=== PATIENT | male | born 1955 | race Caucasian/White ===

== ENCOUNTER → 2019-01-07 13:18 | Outpatient (CLI) | payer OTHER, SELFPAY ==
[2019-01-07 13:51] LABS: Hematocrit 46.8 % (41-53); Mean Corpuscular HGB Conc 34.2 % (30-36); Mean Corpuscular Hemoglobin 34.3 PG (26-34); Mean Corpuscular Volume 100.4 fL (80-100); Platelet Count 161 X10^3/uL (150-400); Red Blood Cell Count 4.66 X10^6/uL (4.5-5.9); Red Cell Distribution Width 13.9 % (11.6-14.8); White Blood Cell Count 9.8 X10^3/uL (4.5-11.0)
[2019-01-07 14:26] LABS: Blood Urea Nitrogen 18 mg/dL (9-20); Calcium 9.5 mg/dL (8.4-10.2); Carbon Dioxide 29 mmol/L (22-32); Chloride 98 mmol/L (98-107); Cholesterol 170 mg/dL (140-199); Estimated Glomerular Filt Rate > 60.0 mL/min (>60); Glucose 106 mg/dL (80-110); HDL Cholesterol 41 mg/dL (40-60); HEMOLYSIS < 15 (0-50); LDL Cholesterol Calculated 105 mg/dL (<100); Potassium 3.9 mmol/L (3.4-5.1); Sodium 138 mmol/L (137-145); Triglycerides 119 mg/dL (35-150)
[2019-01-07 16:21] LABS: Vitamin D 25 Hydroxy (D3) 17.8 ng/mL (30.0-100.0)
== END ==
PROVIDERS: PCP Student in an Organized Health Care Education/Training Program; Visit Provider Student in an Organized Health Care Education/Training Program
DX: E55.9 Vitamin D deficiency, unspecified (principal); G47.30 Sleep apnea, unspecified; K21.9 Gastro-esophageal reflux disease without esophagitis; E66.9 Obesity, unspecified
CPT/HCPCS: 36415; 80048; 80061; 82306; 83036; 85027

== ENCOUNTER 2019-01-07 14:06 | Emergency (ER) | payer OTHER, SELFPAY ==
[2019-01-07 14:15] VITALS: BP 135/84; PULSE 98; RESP 15; TEMP 36.9; O2SAT 93; BMI 43.0
[2019-01-07 14:55] VITALS: BP 111/80; PULSE 96; RESP 18; O2SAT 92
--- NOTE | 2019-01-07 15:20 | DI.US.S_ITS ---
PROCEDURE: US PERIPH VENOUS LOW EXTREM RT INDICATIONS: RED SWOLLEN LEG TECHNIQUE: Real-time imaging, as well as color and pulse Doppler interrogation, were performed of the lower extremity deep veins from the inguinal ligament to the popliteal fossa. COMPARISON: None. FINDINGS: The common femoral, femoral and popliteal veins are normally compressible, and free of intraluminal thrombus. Color and pulse Doppler demonstrate normal phasic intraluminal flow. There is normal augmentation response to distal compression maneuver. Prominent lymph nodes are noted in right inguinal region measures up to 3.3 x 1.4 x 1.7 cm in size. IMPRESSION: No evidence of DVT in visualized right lower extremity veins. Prominent right inguinal lymph nodes as above. Dictated by: Jermaine Wheeler M.D. on 01/07/2019 at 15:48 Approved by: Jermaine Wheeler M.D. on 01/07/2019 at 15:49
--- NOTE | 2019-01-07 15:20 | DI.RAD.S_ITS ---
PROCEDURE: XR CHEST 1V INDICATIONS: chest pain TECHNIQUE: One view of the chest was acquired. COMPARISON: None. FINDINGS: Surgical changes and devices: None. Lungs and pleura: Lungs are clear. No pleural effusions or pneumothorax. Mediastinum: Mediastinal contours appear normal. Heart size is enlarged. Bones and chest wall: No suspicious bony lesions. Overlying soft tissues appear unremarkable. IMPRESSION: No acute cardiopulmonary pathology. Dictated by: Jermaine Wheeler M.D. on 01/07/2019 at 15:43 Approved by: Jermaine Wheeler M.D. on 01/07/2019 at 15:44
--- NOTE | 2019-01-07 15:27 | ED_ITS ---
HPI - Extremity Problem <BRUNA Villeda-BC - Last Filed: 01/07/19 18:52> General Chief complaint: Extremity Problem,Nontraumatic Stated complaint: LOWER RIGHT LEG SWELLING Time Seen by Provider: 01/07/19 14:59 Source: patient Mode of arrival: ambulatory Limitations: no limitations History of Present Illness HPI Narrative: Patient is a 63-year-old male with remote smoking history and cu rrent history of sleep apnea who presents with a chief complaint of a red swollen painful right lower leg. He is concerned about a blood clot. He denies any fevers nausea vomiting or diarrhea. He does endorse a short episode of right-sided chest pain 2 days ago. He also states he was short of breath for approximately 1 hour a few days ago as well. he denies any history of blood clots. He has not taken anything for it. He states he was getting his blood drawn as per his primary care provider, and requested a test for blood clot. He states they sent him down here. Related Data Home Medications Medication Instructions Recorded Confirmed naproxen 250 mg PO BID PRN #0 10/12/06 01/07/19 aspirin 81 mg chewable tablet 81 mg PO DAILY 11/17/18 01/07/19 cetirizine 10 mg capsule 10 mg PO DAILY 11/17/18 01/07/19 vitamin B complex 1 tab PO DAILY 01/07/19 01/07/19 Previous Rx's Medication Instructions Recorded valacyclovir 1 gram tablet 2,000 mg PO BID #4 tab 07/13/18 cephalexin 500 mg PO QID #40 cap 01/07/19 Allergies Allergy/AdvReac Type Severity Reaction Status Date / Time No Known Drug Allergies Allergy Verified 12/30/18 13:05 Review of Systems <EMILIE VilledaBC - Last Filed: 01/07/19 18:52> Review of Systems GENERAL: Denies chills, fatigue, malaise, fever, sweats. HEENT: Denies sinus pain, ear pain, sore throat, difficulty swallowing, dizziness. RESPIRATORY: See HPI CARDIOVASCULAR: See HPI GASTROINTESTINAL: Denies nausea, vomiting, abdominal pain, diarrhea, constipation, melena. : Denies dysuria, frequency, incontinence, hematuria, urinary retention. MUSCULOSKELETAL: denies weakness, joint pain, or bony pain SKIN: See HPI NEUROLOGIC: Denies weakness, headache, numbness, change in speech, confusion, seizures, incoordination. PSYCHIATRIC: No concerning psychosocial issues. 12 point review of systems is negative except for those stated above PFSH <Tracy MontielLILAP- - Last Filed: 01/07/19 18:52> Medical History (Updated 01/08/19 @ 07:45 by Tigre Shankar MD) BPH (benign prostatic hyperplasia) (Chronic) GERD (gastroesophageal reflux disease) (Chronic) Herpes (Resolved) Family History Mother Heart disease Cancer Stroke Father Stroke Social History (Updated 03/25/18 @ 14:41 by Nazia Engel LPN) marital status: unmarried,single household members: none lives independently: Yes caregiver/support person: No Smoking Status: Former smoker alcohol intake: current substance use type: does not use Social History (Updated 03/25/18 @ 14:41 by Nazia Engel LPN) marital status: unmarried,single household members: none lives independently: Yes caregiver/support person: No Smoking Status: Former smoker alcohol intake: current substance use type: does not use Exam <Tracy MontielLILAFORMERLY [facility] - Last Filed: 01/07/19 18:52> Narrative Exam Narrative: GENERAL: This is a well-nourished, well-developed patient, i no acute distress HEAD: Atraumatic. Normocephalic. No temporal or scalp tenderness. EYES: Pupils equal round and reactive. Extraocular motions intact. No scleral icterus. No injection or drainage. ENT: Nose without bleeding, purulent drainage or septal hematoma. Throat without erythema, tonsillar hypertrophy or exudate. Uvula midline. Airway patent. NECK: Trachea midline. No JVD or lymphadenopathy. Supple, nontender, no meningeal signs. CARDIOVASCULAR: Regular rate and rhythm without murmurs, gallops, or rubs. RESPIRATORY: Clear to auscultation. Breath sounds equal bilaterally. No wheezes, rales, or rhonchi. No cough. No increased respiratory effort. No accessory muscle use. GASTROINTESTINAL: Abdomen soft, non-tender, nondistended. No hepato-sp lenomegaly, or palpable masses. No guarding. active bowel sounds all 4 quadrants. No pulsatile mass. EXTREMITIES: +2 edema noted bilateral lower legs. Positive pedal pulses bilaterally. BACK: Nontender without deformity or crepitance. No flank tenderness. NEURO: AOx3. SKIN: Diffuse erythema noted 8 cm up the right lower leg. Initial Vital Signs Initial Vital Signs: Vital Signs Temperature 98.4 F 01/07/19 14:15 Pulse Rate 98 H 01/07/19 14:15 Respiratory Rate 15 01/07/19 14:15 Blood Pressure 135/84 01/07/19 14:15 Pulse Oximetry 93 01/07/19 14:15 <Tracy Sol DO - Last Filed: 01/11/19 07:14> Initial Vital Signs Initial Vital Signs: Vital Signs Temperature 98.4 F 01/07/19 14:15 Pulse Rate 98 H 01/07/19 14:15 Respiratory Rate 15 01/07/19 14:15 Blood Pressure 135/84 01/07/19 14:15 Pulse Oximetry 93 01/07/19 14:15 Course <BRUNA Villeda-BC - Last Filed: 01/07/19 18:52> Orders Ordered: ED Orders 01/07/19 13:22 B Type Natriuretic Peptide Stat 01/07/19 13:31 Prothrombin Time INR Stat 01/07/19 14:29 EKG-12 Lead Routine 01/07/19 15:20 US periph venous low extrem rt Stat XR chest 1V Stat Troponin & CK Cardiac Panel Stat Vital Signs - 8 hr 01/07/19 14:15 01/07/19 14:55 01/07/19 17:58 Temperature 98.4 F Pulse Rate 98 H 96 H 98 H Respiratory Rate 15 18 21 Blood Pressure 135/84 Blood Pressure [Right Arm] 111/80 144/87 H Pulse Oximetry 93 92 92 <Tracy Sol DO - Last Filed: 01/11/19 07:14> Orders Ordered: ED Orders 01/07/19 13:22 B Type Natriuretic Peptide Stat 01/07/19 13:31 Prothrombin Time INR Stat 01/07/19 14:29 EKG-12 Lead Routine 01/07/19 15:20 US periph venous low extrem rt Stat XR chest 1V Stat Troponin & CK Cardiac Panel Stat Vital Signs - 8 hr 01/07/19 14:15 01/07/19 14:55 01/07/19 17:58 Temperature 98.4 F Pulse Rate 98 H 96 H 98 H Respiratory Rate 15 18 21 Blood Pressure 135/84 Blood Pressure [Right Arm] 111/80 144/87 H Pulse Oximetry 93 92 92 MDM - Extremity (Nontraumatic) <LASHA Villeda - Last Filed: 01/07/19 18:52> Lab Data Lab Results 01/07/19 01/07/19 01/07/19 Range/Units 13:22 13:31 15:20 PT 13.0 H (10.1-12.7) SECONDS INR 1.1 (0.9-1.3) Total Creatine Kinase 109 (55-170) U/L CK-MB (CK-2) 0.68 (<2.37) ng/mL CK-MB (CK-2) Rel Index 0.6 L (1.5-5.0) % Troponin I < 0.012 (0.01-0.034) ng/mL B-Natriuretic Peptide < 100 (<100) Imaging Data Chest x-ray: Radiologist's impression: [address] [address] XRay Report Signed Patient: Patrick Kirkland#: [id number] : 1955cct:[id number] Age/Sex: 63 / MDate of Service: 01/07/19 Loc: ED Accession Number: [id number] Procedure: XR chest 1V Ordering Provider: Tracy Montiel PROCEDURE: XR CHEST 1V INDICATIONS: chest pain TECHNIQUE: One view of the chest was acquired. COMPARISON: None. FINDINGS: Surgical changes and devices: None. Lungs and pleura: Lungs are clear. No pleural effusions or pneumothorax. Mediastinum: Mediastinal contours appear normal. Heart size is enlarged. Bones and chest wall: No suspicious bony lesions. Overlying soft tissues appear unremarkable. IMPRESSION: No acute cardiopulmonary pathology. Dictated by: Jermaine Wheeler M.D. on 01/07/2019 at 15:43 Approved by: Jermaine Wheeler M.D. on 01/07/2019 at 15:44 Venous US: Radiologist's impression: Patrick Kirkland Liam 63 M [address] [address] Ultrasound Report Signed Patient: Patrick Kirkland Liam#: [id number] : 7Acct:[id number] Age/Sex: 63 / MDate of Service: 01/07/19 Loc: ED Accession Number: [id number] Procedure: US periph venous low extrem rt Ordering Provider: Tracy Montiel-BC PROCEDURE: US PERIPH VENOUS LOW EXTREM RT INDICATIONS: RED SWOLLEN LEG TECHNIQUE: Real-time imaging, as well as color and pulse Doppler interrogation, were performed of the lower extremity deep veins from the inguinal ligament to the popliteal fossa. COMPARISON: None. FINDINGS: The common femoral, femoral and popliteal veins are normally compressible, and free of intraluminal thrombus. Color and pulse Doppler demonstrate normal phasic intraluminal flow. There is normal augmentation response to distal compression maneuver. Prominent lymph nodes are noted in right inguinal region measures up to 3.3 x 1.4 x 1.7 cm in size. IMPRESSION: No evidence of DVT in visualized right lower extremity veins. Prominent right inguinal lymph nodes as above. Dictated by: Jermaine Wheeler M.D. on 01/07/2019 at 15:48 Approved by: Jermaine Wheeler M.D. on 01/07/2019 at 15:49 ECG Data Attestation EKG: I personally reviewed and interpreted this ECG as follows: Interpretation: Sinus rhythm. Ventricular rate 89. No ectopy noted. no ST elevation or depression. Right bundle-branch block noted. Viewed by Dr. Sol [id number] [facility] Narrative Medical decision making narrative: Patient is a 63-year-old male who presents with chief complaint of right lower leg pain as well as a remote complaint of right-sided chest pain. however he has no chest pain or shortness of breath today and has not had it for several days. His ultrasound for DVT was negative. He had a normal chest x-ray. He had a negative troponin. This given his warm erythematous lower leg, I will treat him for cellulitis with cephalexin. I discussed at length the possibility of further evaluation of chest pain, he declines this at this point time. I encouraged follow-up with primary care provider soon as possible. Discussed return precautions including vomiting, diarrhea, signs of systemic illness and concern of heart attack or stroke. Patient had questions or concerns upon discharge. he remained hemodynamically stable and afebrile throughout his stay in the emergency department. <Tracy Sol DO - Last Filed: 01/11/19 07:14> Lab Data Lab Results 01/07/19 01/07/19 01/07/19 Range/Units 13:22 13:31 15:20 PT 13.0 H (10.1-12.7) SECONDS INR 1.1 (0.9-1.3) Total Creatine Kinase 109 (55-170) U/L CK-MB (CK-2) 0.68 (<2.37) ng/mL CK-MB (CK-2) Rel Index 0.6 L (1.5-5.0) % Troponin I < 0.012 (0.01-0.034) ng/mL B-Natriuretic Peptide < 100 (<100) Discharge Plan Departure Patient Disposition: Home Clinical Impression: Cellulitis Qualifiers: Site of cellulitis: extremity Site of cellulitis of extremity: lower extremity Laterality: right Qualified Code(s): L03.115 - Cellulitis of right lower limb Discharge Date/Time: 01/07/19 18:04 Interventions: ED Discharge Assessment Last Done: 01/07/19 18:01 Instructions: DI for Cellulitis -- Adult Activity Restrictions/Additional Instructions: I am starting you on antibiotics. This is for skin infection cold cellulitis. Please monitor for worsening of the infection, fever vomiting and/or diarrhea. Please rest her leg elevated. Please come back to the emergency department for any acute concerns such as chest pain, shortness of breath. Please follow up with primary care provider as soon as possible. Prescriptions: New cephalexin 500 mg capsule 500 mg PO QID Qty: 40 RF: 0 No Action naproxen 250 mg Tablet 250 mg PO BID PRN (Reason: pain) Qty: 0 RF: 0 valacyclovir 1 gram tablet 2,000 mg PO BID Qty: 4 RF: 3 Allergy Relief (cetirizine) 10 mg capsule 10 mg PO DAILY RF: 0 aspirin [Aspirin Childrens] 81 mg tablet,chewable 81 mg PO DAILY RF: 0 vitamin B complex Tablet 1 tab PO DAILY RF: 0 Referrals: Tigre Shankar MD [Primary Care Provider] - <Tracy Sol DO - Last Filed: 01/11/19 07:14> Cosign ED Attending Cosignature Attestation: I was immediately available in the department for consultation. Imaging and lab work was reviewed. This documentation has been reviewed and I agree with assessment and plan. Supervised by Tracy Sol, DO
[2019-01-07 15:33] LABS: INR 1.1 (0.9-1.3)
[2019-01-07 15:37] LABS: Creatine Kinase 109 U/L (55-170)
[2019-01-07 15:49] LABS: Troponin I < 0.012 ng/mL (0.01-0.034)
[2019-01-07 15:52] LABS: CKMB % Relative Index 0.6 % (1.5-5.0); Creatine Kinase MB 0.68 ng/mL (<2.37)
[2019-01-07 16:35] LABS: B Type Natriuretic Peptide < 100 (<100)
[2019-01-07 17:58] VITALS: BP 144/87; PULSE 98; RESP 21; O2SAT 92
== END 2019-01-07 18:04 | disposition home or self-care (01) ==
PROVIDERS: Emergency Provider Nurse Practitioner Family; PCP Student in an Organized Health Care Education/Training Program
DX: L03.115 Cellulitis of right lower limb (principal); M79.661 Pain in right lower leg; R07.9 Chest pain, unspecified; R06.02 Shortness of breath
CPT/HCPCS: 36415; 71045; 82550; 82553; 83880; 84484; 85610; 93005; 93010; 93971; 99282; 99285

== ENCOUNTER → 2019-11-19 15:16 | Outpatient (CLI) | payer OTHER, SELFPAY ==
[2019-11-19 16:34] LABS: Add Manual Diff / Slide Review NO; Basophils Absolute Auto 100 /uL (0-100); Basophils Percent Auto 1.2 % (0-2); Eosinophils Absolute Auto 200 /uL (0-450); Hematocrit 47.3 % (41-53); Hemoglobin 15.8 g/dL (13.5-17.5); Lymphocytes Absolute Auto 1200 /uL (1100-4500); Lymphocytes Percent Auto 23.7 % (25-40); Mean Corpuscular HGB Conc 33.4 % (30-36); Mean Corpuscular Hemoglobin 33.4 PG (26-34); Monocytes Absolute Auto 700 /uL (0-900); Monocytes Percent Auto 13.7 % (3-14); Neutrophils Absolute Auto 2900 /uL (1500-7000); Neutrophils Percent Auto 57.4 % (50-75); Platelet Count 129 X10^3/uL (150-400); Red Blood Cell Count 4.73 X10^6/uL (4.5-5.9); White Blood Cell Count 5.1 X10^3/uL (4.5-11.0)
[2019-11-19 16:36] LABS: HEMOLYSIS 20 (0-50)
[2019-11-19 16:43] LABS: Alanine Aminotransferase 18 IU/L (<50); Albumin 3.8 g/dL (3.5-5.0); Albumin Globulin Ratio 1.3 (1.0-2.8); Alkaline Phosphatase 93 U/L (38-126); Aspartate Aminotransferase 26 IU/L (17-59); Bilirubin Total 1.1 mg/dL (0.2-1.3); Blood Urea Nitrogen 13 mg/dL (9-20); Calcium 8.9 mg/dL (8.4-10.2); Carbon Dioxide 33 mmol/L (22-32); Chloride 103 mmol/L (98-107); Estimated Glomerular Filt Rate > 60.0 mL/min (>60); Globulin 2.9 g/dL (1.7-4.1); Glucose 113 mg/dL (80-110); Potassium 3.7 mmol/L (3.4-5.1); Sodium 143 mmol/L (137-145); Total Protein 6.7 g/dL (6.3-8.2)
[2019-11-19 16:51] LABS: NT-proBNP (BNP-Adult 18+) 3370 pg/mL (<125)
[2019-11-19 17:17] LABS: Prostate Specific Antigen Scrn 1.25 ng/mL (0.1-4.0)
[2019-11-19 17:20] LABS: Vitamin D 25 Hydroxy (D3) 29.9 ng/mL (30.0-100.0)
[2019-11-19 17:33] LABS: TSH w/ Reflex to FT4 2.22 uIU/mL (0.47-4.68)
[2019-11-19 20:26] LABS: Hemoglobin A1C% w Est Avg Glu 6.7 % (4.0-6.0)
== END ==
PROVIDERS: PCP Student in an Organized Health Care Education/Training Program; Referring Provider Student in an Organized Health Care Education/Training Program; Visit Provider Student in an Organized Health Care Education/Training Program
DX: Z12.5 Encounter for screening for malignant neoplasm of prostate (principal); R60.1 Generalized edema; E66.01 Morbid (severe) obesity due to excess calories; E55.9 Vitamin D deficiency, unspecified
CPT/HCPCS: 36415; 80053; 82306; 83036; 83880; 84443; 85025; G0103

== ENCOUNTER 2019-12-08 14:41 | Inpatient (IN) | payer OTHER, SELFPAY ==
[2019-12-08] VITALS (7 sets, daily range): BP systolic 126–136; BP diastolic 79–101; PULSE 84–114; RESP 16–20; TEMP 36.2–37; O2SAT 90–93; BMI 47.0
--- NOTE | 2019-12-08 | DI.RAD.S_ITS ---
PROCEDURE: XR CHEST 1V INDICATIONS: POSSIBLE CHF TECHNIQUE: One view of the chest was acquired. COMPARISON: [facility], CR, XR CHEST 1V, 01/07/2019, 15:24. FINDINGS: Surgical changes and devices: None. Lungs and pleura: Mild pulmonary vascular congestion and mild pulmonary edema is seen with increased interstitial lung markings. No definite focal infiltrate. No pleural effusions or pneumothorax. Mediastinum: Mediastinal contours appear normal. Heart size is enlarged. Bones and chest wall: No suspicious bony lesions. Overlying soft tissues appear unremarkable. IMPRESSION: Suggestion of mild to moderate CHF. No definite focal infiltrate. No gross pneumothorax. Dictated by: Jermaine Wheeler M.D. on 12/08/2019 at 18:50 Approved by: Jermaine Wheeler M.D. on 12/08/2019 at 18:51
--- NOTE | 2019-12-08 16:06 | DI.ECHO.S_ITS ---
[place] [facility]---------+ [facility] +---------+ : : [address] : : : : [id number] : : : : Phone: [phone]+ Echocardiogram Report + + :Name: STEVEN SHAY Study Date: 12/09/2019 Height: 70 in : :[facility] Weight: 336 lb : : Gender: Male BSA: 2.6 m2 : :: 1955 Age: 64 yrs BP: 131/91 mmHg: :Reason For Study: R/O CHF : :Ordering Physician: Tobi : :Hospitalist Performed By: Janee Martins : :Referring: PERRY OROZCO : + + Interpretation Summary The left ventricle is mildly dilated. Left ventricular ejection fraction is estimated to be 20 +/- 5%. There is severe global hypokinesis of the left ventricle. The right ventricle is severely dilated. Right ventricular systolic function is moderate to severely reduced. -Overall this echocardiogram shows significant biventricular dysfunction and evidence of volume overload. -Patient was in atrial fibrillation with heart rate of mostly in 100s during this study. Procedure: The study quality was technically adequate. A two-dimensional transthoracic echocardiogram with color flow and Doppler was performed. A contrast injection of Definity was performed to improve assessment of LV function. Definity contrast used after patient education and consent. Contrast was injected into an intravenous site in the right arm. There is no prior echocardiogram noted for this patient. The patient was in atrial fibrillation with heart rates between 92-105 bpm during the exam. Left Ventricle: The left ventricle is mildly dilated. There is mild asymmetric left ventricular hypertrophy. There is no thrombus. Left ventricular ejection fraction is estimated to be 20 +/- 5%. Left ventricular systolic function is moderate to severely reduced. The interventricular septum is flattened, consistent with a right ventricular volume overload condition. There is severe global hypokinesis of the left ventricle. Septal motion is consistent with conduction abnormality. Diastolic function could not be accurately assessed due to atrial fibrillation. Right Ventricle: The right ventricle is severely dilated. Right ventricular systolic function is moderate to severely reduced. Atria: The left atrium is mildly dilated. The right atrium is moderately dilated. Mitral Valve: The mitral valve leaflets appear mildly thickened, but open well. There is trace mitral regurgitation. Aortic Valve: The aortic valve is trileaflet. The aortic valve opens well. There is no aortic valve stenosis. No aortic regurgitation is present. Tricuspid Valve: The tricuspid valve is normal in structure but is abnormal in function. There is moderate tricuspid regurgitation. Pulmonic Valve: The pulmonic valve is not well seen, but is grossly normal. There is mild pulmonic regurgitation. Great Vessels: The aortic root is borderline dilated. The ascending aorta is mild-moderately enlarged. The inferior vena cava was not visualized. Pericardium/ Pleura There is no pericardial effusion. There is no pleural effusion. MMode/2D Measurements & Calculations LVIDd: 5.8 cm LVOT diam: 2.1 cm LVIDs: 5.4 cm Ao root diam: 3.6 cm FS: 8.0 % asc Aorta Diam: 3.9 cm EPSS: 1.5 cm IVSd: 0.92 cm LVPWd: 1.2 cm LV faith. diameter/BSA (cm/m^2): 2.2 LV sys. diameter/BSA (cm/m^2): 2.1 LA A2 area: 32.1 cm2 RA long axis: 6.3 cm LA A4 area: 24.5 cm2 RA area: 28.5 cm2 LA length (vol): 6.5 cm RA vol: 110.5 ml LA vol: 102.6 ml RA : 42.5 ml/m2 LA vol index: 39.4 ml/m2 RVD1 (basal): 6.5 cm TAPSE: 1.3 cm Doppler Measurements & Calculations Ao V2 max: 110.1 cm/sec LVOT Max Ananth: 87.0 cm/sec Ao V2 mean: 78.4 cm/sec LV V1 max P.0 mmHg Ao max P.8 mmHg LV V1 VTI: 14.8 cm Ao mean P.7 mmHg ADELINA(I,D): 2.9 cm2 Ao V2 VTI: 17.6 cm ADELINA(V,D): 2.7 cm2 sev ratio: 0.84 ADELINA indexed to BSA (cm^2/m^2): 1.1 MV E max ananth: 93.4 cm/sec TR max ananth: 208.6 cm/sec MV A max ananth: 1.5 cm/sec TR max P.4 mmHg MV E/A: 61.3 PA V2 max: 37.5 cm/sec Med Peak E' Ananth: 5.9 cm/sec PA V2 mean: 28.6 cm/sec E/E' med: 15.8 PA mean P.35 mmHg Lat Peak E' Ananth: 7.1 cm/sec PA Accel Time: 0.12 sec E/E' lat: 13.2 E/e' average: 14.5 MV dec time: 0.13 sec MV P1/2t: 44.0 msec MV P1/2t max ananth: 102.3 cm/sec SV(LVOT): 50.6 ml MVA(2t): 5.0 cm2 Electronically signed by: To Escobar M.D. on Reading Physician:12/09/2019 01:33 PM
--- NOTE | 2019-12-08 16:10 | PM.HP.1 ---
History of Present Illness History of Present Illness Date Patient Seen: 12/08/19 Chief complaint: Fluid overload and CHF Narrative: The patient is a 64-year-old male with a history of morbid obesity, cellulitis, obstructive sleep apnea, GERD who presents for progressive anasarca. Patient states his symptoms began in the fall. At that time he it had the flu. He reports following resolution of the fluid he became and noticeably more short of breath. Patient a sleep study and was confirmed to have obstructive sleep apnea. Unfortunately his CPAP machine was ordered but has not been delivered. Since that time he has had gradual weight gain. He continues to gain weight despite oral diuretics. He does know a loud snoring and waking at night. But no orthopnea. He has weeping of the lower extremities CC abdominal girth. Increasing weight. His primary care provider Dr. Santacruz was attempting to arrange an outpatient echo and was unsuccessful with doing this. The patient continues to have progressive swelling and edema and was admitted to the hospital for inpatient treatment after failed outpatient treatment with oral diuretics. Patient denies any fever or chills. He denies any orthopnea or PND. He has no nausea vomiting or diarrhea. He denies any headache blurred vision double vision. He denies chest pain. He does have occasional palpitations. Patient History Medical History (Updated 12/08/19 @ 16:12 by Tana Catherine MD) Anasarca (Acute) BPH (benign prostatic hyperplasia) (Chronic) Cellulitis (Inactive) Essential hypertension (Acute) GERD (gastroesophageal reflux disease) (Chronic) Herpes (Resolved) Obesity with serious comorbidity (Chronic 12/09/17) Umbilical hernia without mention of obstruction or gangrene (Chronic) Vitamin D deficiency (Acute) Family & Social History Social History: household members none lives independently Yes caregiver/support person No Tobacco & Substance use: Smoking Status Former smoker alcohol intake current alcohol intake frequency 0-2 drinks per day Substance Use Type marijuana Meds Home Medications and Allergies Home Medications Medication Instructions Recorded Confirmed Type naproxen 250 mg PO BID PRN #0 10/12/06 12/08/19 History vitamin B complex 1 tab PO DAILY 01/07/19 12/08/19 History bumetanide 2 mg tablet 2 mg PO BID #60 tab 11/19/19 12/08/19 Rx spironolactone 100 mg tablet 100 mg PO DAILY #30 tab 11/19/19 12/08/19 Rx acetaminophen [Tylenol] 325 mg PO BID 12/08/19 12/08/19 History cetirizine [Zyrtec] 10 mg PO DAILY 12/08/19 12/08/19 History valacyclovir 2,000 mg PO BID PRN 12/08/19 12/08/19 History vitamin B complex [B 1 tab PO DAILY 12/08/19 12/08/19 History Complex-Vitamin B12] Allergies Allergy/AdvReac Type Severity Reaction Status Date / Time No Known Drug Allergies Allergy Verified 11/24/19 15:05 Review of Systems Review of Systems ROS: Yes All systems reviewed with the patient and are negative except as otherwise documented Exam Vital Signs (past 8 hours): - 12/08/19 15:00 Temperature 97.7 F Pulse Rate 101 H Respiratory Rate 20 Blood Pressure 136/101 H Pulse Oximetry 90 L Oxygen Flow Rate 0 Narrative Exam Narrative: Pleasant male in no acute distress HEENT: Normocephalic atraumatic, extraocular muscles are intact, oropharynx is clear, neck is supple without adenopathy Lungs: Clear to auscultation Cardiac exam: Regular rate and rhythm normal S1-S2 distant heart tones Abdomen: Obese soft nontender, no appreciable hepatosplenomegaly, umbilical hernia noted Abdominal skin, erythema dry, scaly Extremities: 3 to 4+ pitting edema bilaterally, no oozing at this time, early areas of skin breakdown noted Neurological exam: Cranial nerves 2-12 are intact, strength is symmetric and equal, sensation is grossly intact, gait is not assessed Assessment & Plan Assessment & Plan narrative: Impression 1. 64-year-old male admitted to the hospital for anasarca -patient with progressive weight gain unresponsive to oral diuretics -possible congestive heart failure, will need echocardiogram to define further -no known history of liver disease -will discontinue spironolactone and Bumex -will start IV Lasix, check lab studies, follow-up with labs in the morning 2. Obstructive sleep apnea -patient will be placed on CPAP tonight -will work with social work to identify where his machine is for home use as his untreated sleep apnea may be worsening his anasarca 3 morbid obesity -dietary consult pending 4. Hypertension -will monitor blood pressure here in the hospital, await lab studies will check lipid profile and glycohemoglobin -IV Lasix may improve blood pressure is 1 5. Patient is a full code will note that in his record accordingly
[2019-12-08 18:11] LABS: Hemoglobin A1C% w Est Avg Glu 6.7 % (4.0-6.0)
[2019-12-08 18:26] LABS: Alanine Aminotransferase 16 IU/L (<50); Albumin 3.9 g/dL (3.5-5.0); Albumin Globulin Ratio 1.2 (1.0-2.8); Alkaline Phosphatase 124 U/L (38-126); Aspartate Aminotransferase 24 IU/L (17-59); BUN Creatinine Ratio 23.7 (6-22); Bilirubin Total 1.3 mg/dL (0.2-1.3); Blood Urea Nitrogen 23 mg/dL (9-20); Calcium 9.6 mg/dL (8.4-10.2); Carbon Dioxide 33 mmol/L (22-32); Chloride 101 mmol/L (98-107); Cholesterol 132 mg/dL (140-199); Estimated Glomerular Filt Rate > 60.0 mL/min (>60); Globulin 3.3 g/dL (1.7-4.1); Glucose 100 mg/dL (80-110); HDL Cholesterol 25 mg/dL (40-60); HEMOLYSIS 25 (0-50); LDL Cholesterol Calculated 62 mg/dL (<100); Sodium 141 mmol/L (137-145); Total Protein 7.2 g/dL (6.3-8.2); Triglycerides 223 mg/dL (35-150)
[2019-12-08 18:33] LABS: NT-proBNP (BNP-Adult 18+) 3050 pg/mL (<125)
[2019-12-08] MEDS: FUROSEMIDE 40 MG/4 ML VIAL IV ×2 (19:03→23:59)
[2019-12-08] MEDS: METOPROLOL IR 25 MG TABLET PO (20:29)
[2019-12-08] MEDS: NYSTATIN CREAM 30 GM 1 APPLIC TOP (20:29)
--- NOTE | 2019-12-08 20:52 | PC.NURSE ---
HR pt's HR increases to 140s when up to BR. pt advised of the same and denies feeling HR elevation. pt instructed to use urinal at bedside for further voids. Medicated with metoprolol, reference EMAR.
[2019-12-09] VITALS (11 sets, daily range): BP systolic 116–133; BP diastolic 81–94; PULSE 90–118; RESP 20–24; TEMP 36.1–36.8; O2SAT 91–95
--- NOTE | 2019-12-09 02:51 | PC.NURSE ---
Pt 13 Vtach run. Pt asymptomatic and denies complaints. BP 130/81. HR now back to Afib running in low 100s. Enzo NEUMANN notified. Orders received
[2019-12-09 03:33] LABS: BUN Creatinine Ratio 21.2 (6-22); Blood Urea Nitrogen 21 mg/dL (9-20); Calcium 9.2 mg/dL (8.4-10.2); Carbon Dioxide 34 mmol/L (22-32); Chloride 99 mmol/L (98-107); Estimated Glomerular Filt Rate > 60.0 mL/min (>60); Glucose 102 mg/dL (80-110); HEMOLYSIS < 15 (0-50); Potassium 3.5 mmol/L (3.4-5.1); Sodium 140 mmol/L (137-145)
[2019-12-09 03:34] LABS: Magnesium 1.6 mg/dL (1.6-2.3)
[2019-12-09] MEDS: MAGNESIUM SULFATE 2 GM/50 ML PIGGYBACK IV (04:40)
[2019-12-09] MEDS: POTASSIUM CHLORIDE 60 MEQ in SODIUM CHLORIDE 0.9% 500 ML 88.333 ML IV (04:46)
--- NOTE | 2019-12-09 06:28 | PC.NURSE ---
Pt on 3L O2 and CPAP during the night for recent diagnose of sleep apnea. Pt desatting to 78% whenever falling asleep. O2 sats would come back up to 92% only upon awakening patient. RT at bedside and O2 turned up to 12L O2. Pt still continued to desat frequently whenever falling asleep. Pt taken off CPAP and placed on high flow NC at 10L. O2 sats now running stable at 95% without any O2 sat drop. Pt sats continuing to stable at 95%. Decreased O2 level to 8L and O2 sats running at 95%. Pt has no complaints. Enzo NEUMANN aware.
[2019-12-09] MEDS: ENOXAPARIN 40 MG/0.4 ML SYRINGE SUBCUT (09:30)
[2019-12-09] MEDS: NYSTATIN CREAM 30 GM 1 APPLIC TOP ×2 (09:30→22:00)
[2019-12-09] MEDS: METOPROLOL IR 25 MG TABLET PO ×2 (09:30→22:00)
--- NOTE | 2019-12-09 10:46 | CM.DANOTE ---
DCP Assessment: EMR reviewed: Patient is a 64 yr old male who was admitted for CHF exacerbation, Fluid overload and anasarca. patients PCP is Dr. Shankar. CM/RN met with patient at the bedside and explained role. Patient was alert and oriented x3 at time of CM visit. Patient currently lives alone in a sail boat docked at [facility]. Patient is independent with all ADL's at baseline and drives. Cm/RN met with Dr. Valdez during AM rounds and discussed D/C plan for patient. Dr. Valdez stated patient was going to need a few more days to help with fluid removal and increase patients oxygenation. Patient stated understanding. I: [employer] [employer] P: D/C home when medically stable. Patient does have friend close by who can help if patient needs it a D/C as well as can stay at a friends home if he needs more time to recover and get back to [place] prior to going back to his sail boat. Patient is open to if he needs it but absolutely does not want to go to SNF. CM department will continue to monitor patient for any new D/C planning needs that might arise. Geraldine Ross RN Discharge Planning/Care Management CM Discharge Assessment Start: 12/09/19 10:44 Freq: Status: Active Protocol: Document 12/09/19 10:45 HS (Rec: 12/09/19 10:46 HS [id number]) Discharge Planning Assessment Assigned Oil Field Equipment Mechanic Supervisor Geraldine Ross RN DPOA/Assigned Designee Name Víctor Kirkland Contact Information [phone] Advance Directives? No History Provided By Patient,Medical Record Has Patient been admitted in last 30 No days? Prior Living Arrangements Mobile home Comment patient lives on a sale boat Household Members none Type of transporation used prior to Drives own vehicle admit Independent with ADL's Yes Is patient alert and oriented? Yes Caregiver for Another No DME Already Rented / Owned Cane Barriers to Discharge No Discharge Plan Home Referrals Initiated None needed Whiteboard Updated in Patient Room with Yes name and ext. # of Oil Field Equipment Mechanic Supervisor Review Status In Process Next Review Type Continued Stay Review
--- NOTE | 2019-12-09 12:35 | PM.PN.1 ---
Subjective Subjective Date Patient Seen: 12/09/19 Time Patient Seen: 12:36 Interval history: The patient is a 64-year-old male with a history of morbid obesity, cellulitis, obstructive sleep apnea, GERD who was admitted for anasarca and is seen for follow-up today. Echocardiogram is still pending. Yesterday the patient was noted to be in AFib which he remains in today, but at a controlled rate as of this morning. He is still requiring a significant amount of oxygen to maintain an O2 sat 90%, currently at 8 L. This is slightly improved from before. He does state that he feels slightly better, and did urinate quite a bit yesterday. He was net negative about 2 L yesterday. His A1c did come back at 6.7%, but his sugars have remained normal here. Exam Vital Signs (past 8 hours): - 12/09/19 05:34 12/09/19 06:39 12/09/19 08:00 Temperature 96.9 F L 97.3 F L Pulse Rate 100 H 98 H Respiratory Rate 21 24 Blood Pressure 131/91 H 116/83 Pulse Oximetry 93 94 93 12/09/19 09:06 Temperature Pulse Rate 118 H Respiratory Rate Blood Pressure Pulse Oximetry 91 Oxygen Delivery Method High Flow Nasal Cannula Oxygen Flow Rate 8 Narrative Exam Narrative: GENERAL APPEARANCE: Obese, Well developed, well nourished, in no acute distress. SKIN: Inspection of the skin reveals no rashes, ulcerations or petechiae. Chronic venous stasis as noted below HEENT: Normocephalic atraumatic, extraocular muscles are intact, oropharynx is clear and mucous membranes are moist, neck is supple without adenopathy NECK: Supple and symmetric. There was no thyroid enlargement, and no tenderness, or masses were felt. CHEST: Normal AP diameter and normal contour without any kyphoscoliosis. LUNGS: Auscultation of the lungs revealed no wheezes, rhonchi, or rales. CARDIOVASCULAR: There was a regular rate and rhythm without any murmurs, gallops, rubs. Peripheral pulses were 2+ and symmetric. ABDOMEN: Soft and nontender with normal bowel sounds. No ascites was noted. There is an umbilical hernia which is nontender. MUSCULOSKELETAL: There was no tenderness or effusions noted. Muscle strength and tone were normal. EXTREMITIES: No cyanosis, clubbing. There is 3+ pitting edema bilaterally, as well as evidence chronic venous stasis. NEUROLOGIC: Alert and oriented x 3. Normal affect. Gait was normal. Strength is +5/5 in the Upper Extremities and Lower Extremities Bilaterally. Sensation to touch was normal. Objective Labs Result Diagrams: 12/09/19 02:52 Labs: Laboratory Results - last 24 hr 12/08/19 12/08/19 12/09/19 17:23 17:23 02:52 Sodium 141 140 Potassium 4.0 3.5 Chloride 101 99 Carbon Dioxide 33 H 34 H BUN 23 H 21 H Creatinine 0.97 0.99 Estimated GFR > 60.0 > 60.0 BUN/Creatinine Ratio 23.7 H 21.2 Glucose 100 102 Hemoglobin A1c 6.7 H Calcium 9.6 9.2 Magnesium Total Bilirubin 1.3 AST 24 ALT 16 Alkaline Phosphatase 124 NT-Pro-B Natriuret Pep 3050 H Total Protein 7.2 Albumin 3.9 Globulin 3.3 Albumin/Globulin Ratio 1.2 Triglycerides 223 H Cholesterol 132 L LDL Cholesterol, Calc 62 HDL Cholesterol 25 L 12/09/19 02:52 Sodium Potassium Chloride Carbon Dioxide BUN Creatinine Estimated GFR BUN/Creatinine Ratio Glucose Hemoglobin A1c Calcium Magnesium 1.6 Total Bilirubin AST ALT Alkaline Phosphatase NT-Pro-B Natriuret Pep Total Protein Albumin Globulin Albumin/Globulin Ratio Triglycerides Cholesterol LDL Cholesterol, Calc HDL Cholesterol Assessment & Plan Assessment & Plan narrative: 1. 64-year-old male admitted to the hospital for anasarca -patient with progressive weight gain unresponsive to oral diuretics -possible congestive heart failure, currently pending echocardiogram -no known history of liver disease, no known history of kidney disease. Will check a urine protein creatinine ratio to evaluate for nephrotic syndrome. -patient with adequate response to IV Lasix, will continue at current dosing with goal net 2 L negative daily. 2. Obstructive sleep apnea, chronic -patient will be placed on CPAP tonight -will work with social work to identify where his machine is for home use as his untreated sleep apnea may be worsening his anasarca 3 morbid obesity, chronic -appreciate dietary recommendations 4. Hypertension, chronic -started on metoprolol as noted below, and patient is currently being diuresed. His blood pressures are improved today. 5. Diabetes, present on admission, new diagnosis -patient with mildly elevated A1c at 6.7%. Will start metformin upon discharge. Blood glucose values have been unremarkable to this time. -carbohydrate consistent diet 6. Paroxysmal atrial fibrillation, unknown chronicity -patient was started on metoprolol and has improved rate control -will need to discuss anticoagulation, pending further stratification with TTE as noted above. However his chads Vasc is currently elevated given diabetes. 7. Acute, possibly on chronic, hypoxic respiratory failure -patient is currently requiring 8 L of supplemental oxygen to maintain saturations in the 90s. This is likely due to volume overload/anasarca as noted above. -continue diuresis as noted above -continue to adjust CPAP therapy as needed Code: Full Dispo: Likely to discharge home once oxygenation has improved and patient has been adequately diuresed. Quality VTE Deep Vein Thrombosis/Pulmonary Embolism Present on Admission: No
[2019-12-09] MEDS: FUROSEMIDE 40 MG/4 ML VIAL IV (13:33)
--- NOTE | 2019-12-09 16:11 | PC.NURSE ---
SOB with exertion; O2 L=95%; fine crackles to BLLL Posterior; Tele A fib; pulse irregular; 3+ edema to BLLEs; Nystatin to abdomen; Pt using urinal at bedside; bed alarm; call light within reach
[2019-12-09 18:03] LABS: Creatinine Urine Random 72.5 mg/dL; Protein (Total) Urine Random 10 mg/dL (0-12); Protein Creatinine Ratio Urine 0.13 GRAM/24H
--- NOTE | 2019-12-09 19:30 | DI.CT.S_ITS ---
PROCEDURE: CT ANGIO CHEST PE PROTOCOL INDICATIONS: r/o PE TECHNIQUE: After the administration of intravenous contrast, 2 mm thick sections acquired from the pulmonary apices to the posterior costophrenic angles. 3-dimensional maximum intensity projection (MIP) coronal and sagittal reformats were then acquired through the thorax. For radiation dose reduction, the following was used: automated exposure control, adjustment of mA and/or kV according to patient size. COMPARISON: [facility], CR, XR CHEST 1V, 12/08/2019, 16:19. FINDINGS: Image quality: Secondary to artifact, distal pulmonary branches are not well evaluated. Pulmonary arteries: Pulmonary arteries are normal in size, and demonstrate no intraluminal filling defects to suggest central pulmonary embolism. Small areas of questionable filling defect are identified within the segmental branches of the pulmonary veins. Lungs and pleura: Minimal, left greater than right effusions with superimposed dependent changes. Mediastinum: Heart size is enlarged, without pericardial effusion. No mediastinal or hilar adenopathy. Thoracic aorta is normal in caliber and enhancement. Esophagus is normal in caliber, without hiatal hernia. Bones and chest wall: No suspicious bony lesions. Ribs and thoracic spine appear intact throughout. Thyroid gland is unremarkable. No axillary or supraclavicular adenopathy. Abdomen: Minimal to mild ascites is noted within the visualized upper abdomen. Otherwise, visualized upper abdominal solid organs appear normal in the early arterial phase of enhancement. IMPRESSION: 1. Minimal bilateral effusions, left greater than right with dependent changes. 2. No pulmonary embolism. 3. Questionable areas of filling defect within scattered distal branches of the pulmonary veins. While this could be secondary to artifact, areas of thrombosis cannot be excluded. Pulmonary vein thrombosis is of uncertain clinical significance. 4. Minimal to mild upper abdominal ascites. Dictated by: Stephanie Carranza M.D. on 12/09/2019 at 21:19 Approved by: Stephanie Carranza M.D. on 12/09/2019 at 21:25
[2019-12-09 23:12] LABS: D Dimer 405 ng/mL (<230)
[2019-12-10] VITALS (12 sets, daily range): BP systolic 102–129; BP diastolic 71–89; PULSE 93–115; RESP 16–22; TEMP 36.1–37; O2SAT 92–95
[2019-12-10] MEDS: FUROSEMIDE 40 MG/4 ML VIAL IV ×3 (00:41→22:27)
--- NOTE | 2019-12-10 05:27 | PC.NURSE ---
PHOTOGRAPHIC LABORATORY TECHNICIAN & Coordinator notified me that pt's. Telemetry has 20runs of V-tach. Checked pt. & assessed if he's having chest pain, dyspnea & other discomfort. He denied states I'm okay, I was just dreaming. Dr. Catherine notified about the incident & reported that his VS are B/P 115/78, HR.101, RR 22 & 12 liters of high flow SPO2 94%. No new order received, will report to coordinator & monitor.
[2019-12-10 08:50] LABS: BUN Creatinine Ratio 20.2 (6-22); Blood Urea Nitrogen 17 mg/dL (9-20); Calcium 9.2 mg/dL (8.4-10.2); Carbon Dioxide 35 mmol/L (22-32); Chloride 98 mmol/L (98-107); Estimated Glomerular Filt Rate > 60.0 mL/min (>60); Glucose 109 mg/dL (80-110); HEMOLYSIS < 15 (0-50); Magnesium 1.9 mg/dL (1.6-2.3); Potassium 4.1 mmol/L (3.4-5.1); Sodium 140 mmol/L (137-145)
[2019-12-10] MEDS: NYSTATIN CREAM 30 GM 1 APPLIC TOP ×2 (09:18→22:29)
[2019-12-10] MEDS: METOPROLOL IR 25 MG TABLET PO (09:18)
[2019-12-10] MEDS: ENOXAPARIN 40 MG/0.4 ML SYRINGE SUBCUT (09:18)
[2019-12-10] MEDS: SODIUM CHLORIDE 0.9% FLUSH 10 ML IV ×2 (09:19→22:28)
--- NOTE | 2019-12-10 11:52 | CM.DPC ---
Addendum entered by Geraldine Tinoco R.N. 12/10/19 16:02: Cm/Rn heard back from [facility] that they do not have beds available until Friday or of next week. Cm/ RN talked with patient and stated that they are ok with [facility] or [facility] as a second choice. Cm/RN called [facility] and they would need a COVID-19 test done and resulted as negative before they can consider admission of the patient. Patient notified. CM/RN called [facility] and left a voice message and sent clinicals for there review. CM/RN will follow up with [facility] in the morning. Geraldine Tinoco RN Original Note: DCP continued: EMR reviewed: Dr. Valdez during AM rounds stated that patient will be here a few more days while trying to Diurece him but believes patient will need SNF at D/C since he lives on a boat with many levels and small spaces. CM/RN met with patient and talked about SNF and explained the concern with D/C back to his boat. Patient stated understanding and agreed to go to SNF at D/C if it is needed. Patients first choice is [facility]. Called Corin[facility] at [facility] and left a voice message. CM/RN will call February back at 2pm if not gotten call back by then. PASRR needed once SNF is accepting. Geraldine Tinoco RN
--- NOTE | 2019-12-10 12:29 | P.PN_ITS ---
Subjective Subjective Date Patient Seen: 12/10/19 Time Patient Seen: 12:29 Interval history: The patient is a 64-year-old male with a history of morbid obesity, cellulitis, obstructive sleep apnea, GERD who was admitted for anasarca and is seen for follow-up today. Echocardiogram did show an ejection fraction of only 20% yesterday evening. Yesterday the patient was noted to be in AFib which he remains in today. He is still requiring a significant amount of oxygen to maintain an O2 sat 90%, currently at 6-8 L. This is slightly improved from before. He does state that he feels slightly better, and did urinate quite a bit yesterday. He was net negative about 2 L yesterday, - 4.5 L since admission. Exam Vital Signs (past 8 hours): - 12/10/19 05:21 12/10/19 08:00 Temperature 97.6 F 97.2 F L Pulse Rate 101 H 110 H Respiratory Rate 22 20 Blood Pressure 115/78 115/79 Pulse Oximetry 94 92 Oxygen Delivery Method High Flow Nasal Cannula Oxygen Flow Rate 12 Narrative Exam Narrative: GENERAL APPEARANCE: Obese, Well developed, well nourished, in no acute distress. SKIN: Inspection of the skin reveals no rashes, ulcerations or petechiae. Chronic venous stasis as noted below HEENT: Normocephalic atraumatic, extraocular muscles are intact, oropharynx is clear and mucous membranes are moist, neck is supple without adenopathy NECK: Supple and symmetric. There was no thyroid enlargement, and no tenderness, or masses were felt. CHEST: Normal AP diameter and normal contour without any kyphoscoliosis. LUNGS: Auscultation of the lungs revealed bibasilar crackles, no wheezes. CARDIOVASCULAR: There was a regular rate and rhythm without any murmurs, gallops, rubs. Peripheral pulses were 2+ and symmetric. ABDOMEN: Soft and nontender with normal bowel sounds. No ascites was noted. There is an umbilical hernia which is nontender. MUSCULOSKELETAL: There was no tenderness or effusions noted. Muscle strength and tone were normal. EXTREMITIES: No cyanosis, clubbing. There is 3+ pitting edema bilaterally, as well as evidence chronic venous stasis. NEUROLOGIC: Alert and oriented x 3. Normal affect. Gait was normal. Strength is +5/5 in the Upper Extremities and Lower Extremities Bilaterally. Sensation to touch was normal. Objective Labs Result Diagrams: 12/10/19 08:25 Labs: Laboratory Results - last 24 hr 12/09/19 12/09/19 12/10/19 15:51 22:49 08:25 D-Dimer 405 H Sodium 140 Potassium 4.1 Chloride 98 Carbon Dioxide 35 H BUN 17 Creatinine 0.84 Estimated GFR > 60.0 BUN/Creatinine Ratio 20.2 Glucose 109 Calcium 9.2 Magnesium 1.9 U Random Total Protein 10 Urine Creatinine 72.5 Protein/Creatinin Ratio 0.13 Assessment & Plan Assessment & Plan narrative: The patient is a 64-year-old male with a history of morbid obesity, cellulitis, obstructive sleep apnea, GERD who was admitted for anasarca found to have acute decompensated systolic heart failure with an ejection fraction of 20%. He remains volume overloaded at this time and requi res further IV diuresis. 1. Acute decompensated systolic heart failure, new diagnosis, present on a dmission -patient with progressive weight gain unresponsive to oral diuretics as an outpatient. -echocardiogram: The left ventricle is mildly dilated. Left ventricular ejection fraction is estimated to be 20 +/- 5%. There is severe global hypokinesis of the left ventricle. The right ventricle is severely dilated. Right ventricular systolic function is moderate to severely reduced. Overall this echocardiogram shows significant biventricular dysfunction and evidence of volume overload. in atrial fibrillation with heart rate of mostly in 100s during this study. -no known history of liver disease, no known history of kidney disease. Upc was unremarkable and not consistent with nephrotic syndrome. -patient with adequate response to IV Lasix, will continue at current dosing with goal net 2 L negative daily. -may be tachyarrhythmia induced from AFib, unclear etiology at this time. Will need outpatient follow up with cardiology. -will increase dose of beta-edna given uncontrolled rate at this time. He will be increased to 50 mg p.o. b.i.d. -need to maximize rate control, blood pressures are low normal on metoprolol only. Will add LOLY-inhibitor once rate is controlled and if blood pressures allow. 2. Obstructive sleep apnea, chronic -patient to continue CPAP. -will need to insure that patient has home CPAP therapy upon discharge. It had been previously ordered by PMD. 3. morbid obesity, chronic -appreciate dietary recommendations -morbid obesity is likely worsening this patient's new diagnoses, including TODD, decompensated heart failure, and atrial fibrillation. -patient has an active plan at this time to work on weight loss. 4. Hypertension, chronic -started on metoprolol as noted below, and patient is currently being diuresed. His blood pressures are improved and low normal. 5. Diabetes, present on admission, new diagnosis -patient with mildly elevated A1c at 6.7%. Will start metformin upon discharge. Blood glucose values have been unremarkable to this time. -carbohydrate consistent diet 6. Paroxysmal atrial fibrillation, unknown chronicity -patient was started on metoprolol and has improved rate control -will need to discuss anticoagulation, pending further stratification with TTE as noted above. However his chads Vasc is currently elevated given diabetes. 7. Acute, possibly on chronic, hypoxic respiratory failure -patient is currently requiring 8 L of supplemental oxygen to maintain saturations in the 90s. This is likely due to volume overload/anasarca as noted above. CT PE protocol was not remarkable for PE, and as patient diuresis his oxygenation is slightly improving. -continue diuresis as noted above -continue to adjust CPAP therapy as needed Code: Full Dispo: Likely to discharge home once oxygenation has improved and patient has been adequately diuresed. Anticipate this to be in the next 3-4 days at this time, however unclear how much volume needs to be removed with diuresis at this time. Quality VTE Deep Vein Thrombosis/Pulmonary Embolism Present on Admission: No
[2019-12-10] MEDS: METOPROLOL ER 25 MG TABLET PO (13:01)
--- NOTE | 2019-12-10 16:01 | DIET.PN ---
Dietary Progress Note Assessment: Mr. Kirkland is a 64-year-old male with a history of morbid obesity, cellulitis, obstructive sleep apnea, GERD who was admitted with fluid overload, CHF, and AFib. He reports high intake of comfort foods. He reports trying to keep is calories to under 1500 but reports with his sleep disturbances this has been challenging. Admits to drinking several cocktails per night until about 2 weeks ago when he decided to quit drinking for 90 days for health concerns. HT: 177.8cm WT: 148.5kg BMI: 46 (morbid obese class III) Labs: A1c: 6.7 TC: 132 Tr LDL: 62 HDL: 25 PO's: 100% MNA: 14 Ahmet: 23 Nutrition Diagnosis: Altered nutrition related lab values r/t endocrine dysfunction aeb dx diabetes, elevated A1c, reports of dietary intake high in carbohydrate rich foods, ETOH abuse. Interventions: 1. Discussed carbohydrate counting and recommended servings for meals and snacks for glucose control and weight management. Provided patient with detailed macronutrient needs. 2. Discussed meal planning techniques and portion control. 3. Provided carb, pro, and healthy fat food list. 4. Discussed importance of limiting saturated fats, sodium, and cholesterol and increasing fiber for heart health. 5. Discussed importance of regular physical activity in achieving ride operator weight loss and maintenance. 6. discussed the effect of alcohol on blood sugar and triglycerides. 7. Discussed diabetes education program. Provided information with this RD's contact. Pt is interested. Will request referral. Diet Order: ROCK TIAN EER: 2200 obie @ 30cal/kg IBW for weight loss; 109g pro @ 1.5 g/kg IBW Monitoring/Evaluations: weight, associated labs, recommend referral to diabetes education program.
[2019-12-10] MEDS: APIXABAN 5 MG TABLET PO (22:27)
[2019-12-10] MEDS: METOPROLOL ER 50 MG TABLET PO (22:27)
[2019-12-11] VITALS (13 sets, daily range): BP systolic 116–141; BP diastolic 58–83; PULSE 89–126; RESP 16–20; TEMP 36.1–36.5; O2SAT 82–95
[2019-12-11 06:33] LABS: BUN Creatinine Ratio 19.8 (6-22); Blood Urea Nitrogen 19 mg/dL (9-20); Calcium 9.2 mg/dL (8.4-10.2); Carbon Dioxide 39 mmol/L (22-32); Chloride 94 mmol/L (98-107); Estimated Glomerular Filt Rate > 60.0 mL/min (>60); Glucose 104 mg/dL (80-110); HEMOLYSIS < 15 (0-50); Magnesium 1.8 mg/dL (1.6-2.3); Potassium 3.9 mmol/L (3.4-5.1); Sodium 140 mmol/L (137-145)
--- NOTE | 2019-12-11 06:37 | PC.NURSE ---
O2 saturation while sleeping with 7 liters down to 87%, RT notified ordered to increased 02 to 8 liters. When pt. was awake his sat. up to 94%. Decreased 02 to 7 liters & sat. 93%. Did not C/O pain all shift, will monitor.
[2019-12-11] MEDS: APIXABAN 5 MG TABLET PO ×2 (09:09→20:30)
[2019-12-11] MEDS: SODIUM CHLORIDE 0.9% FLUSH 10 ML IV ×5 (09:09→23:21)
[2019-12-11] MEDS: METOPROLOL ER 50 MG TABLET PO ×2 (09:10→20:30)
--- NOTE | 2019-12-11 09:32 | PC.NURSE ---
Shift summary: Awake and alert, oriented X3. First thing patient states is I want to get out of here today. Remains on 7L O2 per HFNC and does not wear O2 at home normally. SpO2 92-93% on 7L HFNC. Fine crackles to bilateral posterior bases, lungs CTA/dim otherwise. Denies SOB at rest. HR irregular, tele monitoring ongoing. Denies chest pain/palpitations/pressure. Able to move himself in bed, agrees to call for SBA OOB. Call light and belongings within reach, bed alarm on.
[2019-12-11] MEDS: FUROSEMIDE 40 MG/4 ML VIAL IV ×2 (12:21→23:21)
--- NOTE | 2019-12-11 15:07 | P.PN_ITS ---
Subjective Subjective Date Patient Seen: 12/11/19 Time Patient Seen: 15:07 Interval history: The patient is a 64-year-old male with a history of morbid obesity, cellulitis, obstructive sleep apnea, GERD who was admitted for anasarca and is seen for follow-up today. Echocardiogram did show an ejection fraction of only 20%. Patient remains in afib today. He is still requiring a significant amount of oxygen to maintain an O2 sat 90%, currently at 4-6 L. This is s lightly improved from before. He does state that he feels well and is getting restless, and would like to go home. He was more understanding when he remembered that he was unable to be diuresed with oral pills. He was net negative about 3 L yesterday, - 7 L since admission. He is developing a cont raction alkalosis and will be started on diamox this evening. Exam Vital Signs (past 8 hours): - 12/11/19 07:43 12/11/19 08:00 12/11/19 09:48 Temperature 97.7 F Pulse Rate 101 H 126 H Respiratory Rate 18 Blood Pressure 135/64 Pulse Oximetry 95 94 94 12/11/19 09:59 12/11/19 14:25 12/11/19 14:32 Temperature Pulse Rate Respiratory Rate Blood Pressure Pulse Oximetry 94 82 L 93 Oxygen Delivery Method High Flow Nasal Cannula Oxygen Flow Rate 7 Narrative Exam Narrative: GENERAL APPEARANCE: Obese, Well developed, well nourished, in no acute distress. SKIN: Inspection of the skin reveals no rashes, ulcerations or petechiae. Chronic venous stasis as noted below HEENT: Normocephalic atraumatic, extraocular muscles are intact, oropharynx is clear and mucous membranes are moist, neck is supple without adenopathy NECK: Supple and symmetric. There was no thyroid enlargement, and no tenderness, or masses were felt. CHEST: Normal AP diameter and normal contour without any kyphoscoliosis. LUNGS: Auscultation of the lungs revealed bibasilar crackles, no wheezes. CARDIOVASCULAR: There was a regular rate and rhythm without any murmurs, gallops, rubs. Peripheral pulses were 2+ and symmetric. ABDOMEN: Soft and nontender with normal bowel sounds. No ascites was noted. There is an umbilical hernia which is nontender. MUSCULOSKELETAL: There was no tenderness or effusions noted. Muscle strength and tone were normal. EXTREMITIES: No cyanosis, clubbing. There is 3+ pitting edema bilaterally, as well as evidence chronic venous stasis. NEUROLOGIC: Alert and oriented x 3. Normal affect. Gait was normal. Strength is +5/5 in the Upper Extremities and Lower Extremities Bilaterally. Sensation to touch was normal. Objective Labs Result Diagrams: 12/11/19 05:45 Labs: Laboratory Results - last 24 hr 12/11/19 05:45 Sodium 140 Potassium 3.9 Chloride 94 L Carbon Dioxide 39 H BUN 19 Creatinine 0.96 Estimated GFR > 60.0 BUN/Creatinine Ratio 19.8 Glucose 104 Calcium 9.2 Magnesium 1.8 Assessment & Plan Assessment & Plan narrative: The patient is a 64-year-old male with a history of morbid obesity, cellulitis, obstructive sleep apnea, GERD who was admitted for anasarca found to have acute decompensated systolic heart failure with an ejection fraction of 20%. He remains volume overloaded at this time and requires further IV diuresis. 1. Acute decompensated systolic heart failure, new diagnosis, present on admission -patient with progressive weight gain unresponsive to oral diuretics as an outpatient. -echocardiogram: The left ventricle is mildly dilated. Left ventricular ejection fraction is estimated to be 20 +/- 5%. There is severe global hypokinesis of the left ventricle. The right ventricle is severely dilated. Right ventricular systolic function is moderate to severely reduced. Overall this echocardiogram shows significant biventricular dysfunction and evidence of volume overload. in atrial fibrillation with heart rate of mostly in 100s during this study. -no known history of liver disease, no known history of kidney disease. Upc was unremarkable and not consistent with nephrotic syndrome. -patient with adequate response to IV Lasix, will continue at current dosing with goal net 2 L negative daily. -heart failure may be tachyarrhythmia induced from AFib, TODD, or other etiologies. Will need outpatient follow up with cardiology. -Continue metoprolol 50 mg BID, if remains with this BP consider increasing to 100 mg BID in AM for improved rate control (currently in 90-100 range generally) -need to maximize rate control, will add LOLY-inhibitor once rate is better controlled and if blood pressures allow. 2. Obstructive sleep apnea, chronic -patient to continue CPAP. -will need to insure that patient has home CPAP therapy upon discharge. It had been previously ordered by PMD. 3. morbid obesity, chronic -appreciate dietary recommendations -morbid obesity is likely worsening this patient's new diagnoses, including TODD, decompensated heart failure, and atrial fibrillation. -patient has an active plan at this time to work on weight loss. 4. Hypertension, chronic -started on metoprolol as noted below, and patient is currently being diuresed. His blood pressures are improved and low normal. 5. Diabetes, present on admission, new diagnosis -patient with mildly elevated A1c at 6.7%. Will start metformin today. Blood glucose values have been unremarkable to this time. -carbohydrate consistent diet 6. Paroxysmal atrial fibrillation, unknown chronicity -patient was started on metoprolol and has improved rate control -patient has been started on apixaban 7. Acute, possibly on chronic, hypoxic respiratory failure -patient is currently requiring 4L of supplemental oxygen to maintain saturations in the 90s. This is likely due to volume overload/anasarca as noted above. CT PE protocol was not remarkable for PE, and as patient diuresis his oxygenation is slightly improving. -continue diuresis as noted above -continue to adjust CPAP therapy as needed Code: Full Dispo: Likely to discharge home once oxygenation has improved and patient has been adequately diuresed. Anticipate this to be in the next 2-3 days at this time, however unclear how much volume needs to be removed with diuresis at this time. He is wanting to go home, which may be possible once oxygenation requirement is down to 1-2 L and patient will need close outpatient follow up. Home health will need to be arranged and face to face form was signed today. Quality VTE Deep Vein Thrombosis/Pulmonary Embolism Present on Admission: No
[2019-12-11] MEDS: METFORMIN XR 500 MG TABLET PO (16:56)
[2019-12-11] MEDS: acetaZOLAMIDE 250 MG TABLET PO (20:30)
[2019-12-11] MEDS: NYSTATIN CREAM 30 GM 1 APPLIC TOP (20:30)
[2019-12-12] VITALS (11 sets, daily range): BP systolic 105–146; BP diastolic 57–98; PULSE 87–100; RESP 18–24; TEMP 36.1–36.8; O2SAT 91–97
[2019-12-12 06:43] LABS: BUN Creatinine Ratio 17.8 (6-22); Blood Urea Nitrogen 19 mg/dL (9-20); Calcium 9.6 mg/dL (8.4-10.2); Chloride 94 mmol/L (98-107); Estimated Glomerular Filt Rate > 60.0 mL/min (>60); Glucose 109 mg/dL (80-110); HEMOLYSIS 18 (0-50); Magnesium 1.9 mg/dL (1.6-2.3); Potassium 3.9 mmol/L (3.4-5.1); Sodium 139 mmol/L (137-145)
[2019-12-12 06:49] LABS: Carbon Dioxide 39 mmol/L (22-32)
[2019-12-12] MEDS: acetaZOLAMIDE 250 MG TABLET PO ×2 (10:14→21:12)
[2019-12-12] MEDS: NYSTATIN CREAM 30 GM 1 APPLIC TOP ×2 (10:14→21:12)
[2019-12-12] MEDS: APIXABAN 5 MG TABLET PO ×2 (10:16→21:12)
[2019-12-12] MEDS: METOPROLOL ER 50 MG TABLET PO (10:16)
[2019-12-12] MEDS: SODIUM CHLORIDE 0.9% FLUSH 10 ML IV ×3 (10:18→21:12)
--- NOTE | 2019-12-12 10:53 | P.PN_ITS ---
Subjective Subjective Date Patient Seen: 12/12/19 Time Patient Seen: 10:53 Interval history: The patient is a 64-year-old male with a history of morbid obesity, cellulitis, obstructive sleep apnea, GERD who was admitted for anasarca and is seen for follow-up today. Echocardiogram did show an ejection fraction of only 20%. Patient remains in afib. He is still requiring a significant amount of oxygen to maintain an O2 sat 90%, currently at around 4L. This continues to improve daily. He was net negative about 1.5L yesterday, - 9.5 L since admission. He is developing a contraction alkalosis which has stabilized on Diamox. He ambulated today with respiratory therapy and will start PT evaluation today. He may need to discharge on oxygen temporarily as diuresis will likely need to continue as an outpatient. He is anxious to go home at this point, but understands that there is still quite a bit of fluid to remove. Exam Vital Signs (past 8 hours): - 12/12/19 05:55 12/12/19 07:36 Temperature 98.2 F 96.9 F L Pulse Rate 100 H 89 Respiratory Rate 18 24 Blood Pressure 119/80 146/98 H Pulse Oximetry 92 93 Oxygen Delivery Method High Flow Nasal Cannula Oxygen Flow Rate 5 Narrative Exam Narrative: GENERAL APPEARANCE: Obese, Well developed, well nourished, in no acute distress. Sitting upright in bedside chair. SKIN: Inspection of the skin reveals no rashes, ulcerations or petechiae. Chronic venous stasis as noted below HEENT: Normocephalic atraumatic, extraocular muscles are intact, oropharynx is clear and mucous membranes are moist, neck is supple without adenopathy NECK: Supple and symmetric. There was no thyroid enlargement, and no tenderness, or masses were felt. CHEST: Normal AP diameter and normal contour without any kyphoscoliosis. LUNGS: Auscultation of the lungs revealed bibasilar crackles, no wheezes. CARDIOVASCULAR: There was a irregularly irregular rhythm with normal rate without any murmurs, gallops, rubs. Peripheral pulses were 2+ and symmetric. ABDOMEN: Soft and nontender with normal bowel sounds. No ascites was noted. There is an umbilical hernia which is nontender. MUSCULOSKELETAL: There was no tenderness or effusions noted. Muscle strength and tone were normal. EXTREMITIES: No cyanosis, clubbing. There is 3+ pitting edema bilaterally, as well as evidence chronic venous stasis. NEUROLOGIC: Alert and oriented x 3. Normal affect. Gait was normal. Strength is +5/5 in the Upper Extremities and Lower Extremities Bilaterally. Sensation to touch was normal. Objective Labs Result Diagrams: 12/12/19 05:45 Labs: Laboratory Results - last 24 hr 12/12/19 05:45 Sodium 139 Potassium 3.9 Chloride 94 L Carbon Dioxide 39 H BUN 19 Creatinine 1.07 Estimated GFR > 60.0 BUN/Creatinine Ratio 17.8 Glucose 109 Calcium 9.6 Magnesium 1.9 Assessment & Plan Assessment & Plan narrative: The patient is a 64-year-old male with a history of morbid obesity, cellulitis, obstructive sleep apnea, GERD who was admitted for anasarca found to have acute decompensated systolic heart failure with an ejection fraction of 20%. He remains volume overloaded at this time and requires further IV diuresis. 1. Acute decompensated systolic heart failure, new diagnosis, present on admission -patient with progressive weight gain unresponsive to oral diuretics as an outpatient. -echocardiogram: The left ventricle is mildly dilated. Left ventricular ejection fraction is estimated to be 20 +/- 5%. There is severe global hypokinesis of the left ventricle. The right ventricle is severely dilated. Right ventricular systolic function is moderate to severely reduced. Overall this echocardiogram shows significant biventricular dysfunction and evidence of volume overload. in atrial fibrillation with heart rate of mostly in 100s during this study. -no known history of liver disease, no known history of kidney disease. Urine protein/creatinine ratio was unremarkable and not consistent with nephrotic syndrome. -patient with adequate response to IV Lasix, will continue at current dosing with goal net 2 L negative daily. -heart failure may be tachyarrhythmia induced from AFib, TODD, or other etiologies. Will need outpatient follow up with cardiology. -Will increase metoprolol to 100 mg BID today as patient has additional room in his blood pressure and rate generally remains in the 90s-100s. -need to maximize rate control, will add LOLY-inhibitor once rate is better controlled and if blood pressures allow. 2. Obstructive sleep apnea, chronic -patient to continue CPAP. -will need to insure that patient has home CPAP therapy upon discharge. It had been previously ordered by PMD. 3. morbid obesity, chronic -appreciate dietary recommendations -morbid obesity is likely worsening this patient's new diagnoses, including TODD, decompensated heart failure, and atrial fibrillation. -patient has an active plan at this time to work on weight loss upon discharge. 4. Hypertension, chronic -started on metoprolol as noted below, and patient is currently being diuresed. His blood pressures are improved. 5. Diabetes, present on admission, new diagnosis -patient with mildly elevated A1c at 6.7%. Started on low dose metformin. Blo od glucose values have been unremarkable to this time. -carbohydrate consistent diet 6. Paroxysmal atrial fibrillation, unknown chronicity -patient was started on metoprolol and has improved rate control, but increased today for better rate control. -patient has been started on apixaban 7. Acute, possibly on chronic, hypoxic respiratory failure -patient is currently requiring 4L of supplemental oxygen to maintain saturations in the 90s. This is likely due to volume overload/anasarca as noted above. CT PE protocol was not remarkable for PE, and as patient diuresis his oxygenation is slightly improving. -continue diuresis as noted above -continue to adjust CPAP therapy as needed Code: Full Dispo: Likely to discharge home once oxygenation has improved and patient has been adequately diuresed. Anticipate this to be in the next 1-2 days at this time, however unclear how much volume needs to be removed with diuresis at this time. He is wanting to go home, which may be possible once oxygenation requirement is down to 1-2 L and patient will need close outpatient follow up. Home health will need to be arranged and face to face form was signed. Situation is somewhat complicated by the fact that [place] and some services may be limited. Patient stated he could temporarily live with a friend as well. Quality VTE Deep Vein Thrombosis/Pulmonary Embolism Present on Admission: No
--- NOTE | 2019-12-12 11:23 | RT ---
At 0930, I assesed patient. Pt's legs and feet are grossly swollen, and weepage of serous fluid was seen on sheets. Pt is pleasant. 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 Pt is pleasant and has a strong [place] accent (he hails from [facility]) Lung sounds coarse with rales. No hx of using RT meds or home O2. Pt is slightly obese (also accounting for the anasarca). O2 sats on standard HFNC was 93% on 4 lpm. I spent >30 min talking with patient. Liam is very frustrated he has not got his CPAP machine. I ambulated patient around the Med/Surg hallways on the hospital henry, on 4 lpm HFNC, which he tolerated well. Returned pt to the reclining cardiac chair. I encouraged pt to move and ambulate to avoid decubitus ulcers. He states he had an overnight sleep at home, and was called the next day and informed by microbiology lab technician that you need to have a real sleep study in our facility. Pt complied and got the sleep study at [facility], with Dr. Alejandre. Pt states the CPAP machine order was expedited and sent to [facility] (insurance was [facility]). PT HAS NOT GOTTEN HIS CPAP MACHINE YET. I immediately informed Hospitalist (Dr. Valdez) and Discharge Planning Rep Fatuma, and I requested (in the presence of Dr. Valdez) that she or her staff call Dr. Alejandre and sleep lab tomorrow to follow up and actually inform Dr. Alejandre that PT HAS NOT GOTTEN HIS CPAP MACHINE YET. Fatuma said she would try to contact them tomorow. I believe this patient would benefit greatly from home CPAP, and we must attempt to close the loop and get this nice man the ordered CPAP machine soonest. Pt is also a candidate for Cardiac rehab program.
--- NOTE | 2019-12-12 12:43 | PT.IIE ---
Current Diagnoses Obesity, unspecified (12/08/19) Generalized edema (12/08/19) Medical History (Last Updated 10/18/19 @ 14:36 by Tigre Shankar MD) Anasarca (Acute) BPH (benign prostatic hyperplasia) (Chronic) Cellulitis (Inactive) Essential hypertension (Acute) GERD (gastroesophageal reflux disease) (Chronic) Herpes (Resolved) Obesity with serious comorbidity (Chronic 12/09/17) Umbilical hernia without mention of obstruction or gangrene (Chronic) Vitamin D deficiency (Acute) Physical Therapy Inpatient Evaluation/Re-Eval M1 PT/OT-IP Prior Functional Status Start: 12/12/19 10:40 Freq: NEEDED Status: Active Protocol: Document 12/12/19 12:16 AW (Rec: 12/12/19 12:43 AW [id number]) Medical Review Prior Functional Status Medical History Reviewed Yes Diet/Fluid Consistency Regular Communication WNL. Pt is an effective verbal communicator Mobility and Gait Pt reports independence with all mobility and denies use of any assistive device. He could walk ~1/2 mile with a few rest breaks prior to this episode. Activities of Daily Living and IADL's Independent with all. Social History Household Members none Living Arrangements Mobile home Number of Stairs To Enter/Railing? Pt lives on a 37' sailboat at [facility]. He must climb 3 steps to board the boat with shrouds for support on his left side. 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 M2 PT-IP Current Condition Start: 12/12/19 10:40 Freq: NEEDED Status: Active Protocol: Document 12/12/19 12:16 AW (Rec: 12/12/19 12:43 AW [id number]) Physical Therapy Current Condition Current Condition Evaluation Date 12/12/19 Treatment Diagnosis acute decompensated SHF, anasarca, impaired mobility Onset Date 12/08/2019 M3 PT-IP Subjective Start: 12/12/19 10:40 Freq: NEEDED Status: Active Protocol: Document 12/12/19 12:16 AW (Rec: 12/12/19 12:43 AW [id number]) Subjective Physical Therapy Visit Type Type Initial Evaluation Visit Start Time 11:21 Visit Stop Time 12:05 Total Visit Minutes 30 Notes Pt left alone with call light to use the toilet during this session. Number of HULL OUTFIT SUPERVISOR Visits 0 Physical Therapy Visit Comments Patient Comments Pt is feeling good and ready to mobilize with PT Patient Goals Pt hopes to return to his sailboat. He is beginning to consider looking for a small apartment to stay in but is happy on his boat at this time . Therapy Pain Assessment Pain When Pain Assessed During Mobility Pain Present Pain Present Denied Pain M4 PT-IP Mobility and Gait Start: 12/12/19 10:40 Freq: NEEDED Status: Active Protocol: Document 12/12/19 12:16 AW (Rec: 12/12/19 12:43 AW [id number]) PT-Transfer Assessment Sit to and From Stand Sit to and from Stand Independent,Use of Upper Extremities Equipment Transfer Assistive Device Gait Belt Orthotic/Prosthetic Devices or Brace: No Transfers Transfer Destination Chair Transfer Technique pt ambulated independently Transfer Ability Level of Assist Independent Comments Mobility Comments Pt was sitting up in the chair upon PT arrival. He was on 4L /min hydrated O2 with SpO2 95% at rest. He stood and ambulated to the toilet SBA and was left alone with the call light. When he rang the call button, he transferred independently from the toilet to the chair. He sat without UE support, needing assist to don shoes since he normally uses a long handled shoe horn at home. He stood and ambulated around the unit four times with 4L O2, maintaining SpO2 ~93% at all times. He completed a 4-item Dynamic Gait Index with score of 12/12 indicating low risk of falls. Upon return to the room, he transferred back to the chair and was positioned with call light and all needs within reach. Gait Assessment Gait Gait Assistance Required: Independent Distance (Feet) 900 Able to Maintain Weight Bearing Status Yes During Gait Assistive Devices Assistive Device Gait Belt Orthotic/Prosthetic Devices or Brace: No Gait Deviations General Gait Pattern Within Normal Limits,Lateral Trunk Lean,Wide Based Gait Factors Limiting Gait Function Factors Limiting Gait Function Decreased Activity Tolerance, Decreased Sensation Comments Gait Comments See mobility comments for details. Stair Climbing Assessment Evaluation Level of Assist On Stairs Independent Devices Stair Climbing Assistive Devices Left Railing Technique/Endurance Stair Climbing Direction Ascend and Descend Stair Climbing Technique Step Over Step Number of Steps Climbed 3 Query Text: Stair Climbing Set # Repetitions (reps) 4 Comments Stair Climbing Comments Pt demonstrated good safety awareness with stair climbing, requiring no assist. PT-Balance Assessment Sitting Balance and Reactions Static Sitting Balance Ability Normal Dynamic Sitting Balance Ability Normal Standing Balance and Reactions Static Standing Balance Ability Good Dynamic Standing Balance Ability Good Device Used none Functional Assessments Functional Tests Dynamic Gait Index modified (4-item) DGI: 09/09 M5 PT-IP Objective Assessments Start: 12/12/19 10:40 Freq: NEEDED Status: Active Protocol: Document 12/12/19 12:16 AW (Rec: 12/12/19 12:43 AW [id number]) Orientation Orientation/Cognition Level of Alertness Alert Orientation Name,Day of Week,Place, Situation Language Function Ability No Deficits Noted Safety Awareness Understands Safety Issues Memory Description No Deficits Noted Gross Range of Motion Upper Extremity ROM Assessment Within Functional Limits Lower Extremity ROM Assessment Within Functional Limits Strength Upper Extremity Strength Assessment Within Functional Limits Lower Extremity Strength Assessment Within Functional Limits Comments Strength Comments BLE grossly 4+/5 except for hip flexion 4/5 Coordination Assessment Gross Coordination Gross Coordination WNL Sensation Assessment Sensation Gross Sensation Right LE Impaired,Left LE Impaired Sensation Description Numbness,Tingling Comments Sensation Comments Pt reports neuropathy affecting bilateral feet which is normally well controlled with supplements. He has been off his supplements in the hospital and reports increased tingling over the past few days. Muscle Tone Muscle Tone WNL Yes M6 PT-IP Treatment Start: 12/12/19 10:40 Freq: NEEDED Status: Active Protocol: Document 12/12/19 12:16 AW (Rec: 12/12/19 12:43 AW [id number]) Physical Therapy Treatment Education Education Provided Precautions,Safety M7 PT-IP Assessment and Plan Start: 12/12/19 10:40 Freq: NEEDED Status: Active Protocol: Document 12/12/19 12:16 AW (Rec: 12/12/19 12:43 AW [id number]) PT Summary Assessment and Plan Potential Rehabilitation Potential Excellent Summary Impairments Sensation Assessment Summary Liam is a 64 yo man admitted wt acute decompensated systolic heart failure. He does not use O2 at home but has an order for CPAP which case management is helping to coordinate for him. 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 On evaluation, he was independent with all mobility with the use of 4L/ min O2, maintaining SpO2 in the low to mid 90's throughout 900 feet ambulation and stair climbing. He scored 12/12 on modified DGI. PT identifies no mobility-related needs and will complete the order for PT consult but will remain available for re-consult should the patient's condition change. Frequency of Treatment Frequency Of Treatment Discharge
[2019-12-12] MEDS: FUROSEMIDE 40 MG/4 ML VIAL IV ×2 (13:07→23:53)
[2019-12-12] MEDS: METFORMIN XR 500 MG TABLET PO (16:46)
[2019-12-12] MEDS: METOPROLOL ER 50 MG TABLET 100 MG PO (21:12)
--- NOTE | 2019-12-12 22:37 | PC.NURSE ---
Addendum entered by Christal Hernandez R.N. 12/12/19 22:38: pt refused new IV start. R.FA flushing great. L.AC DC'd due to leaking. Original Note: 4L hiflow 92-94%
[2019-12-13] VITALS (9 sets, daily range): BP systolic 110–119; BP diastolic 54–76; PULSE 90–106; RESP 19–21; TEMP 36.4–36.9; O2SAT 84–94
[2019-12-13 08:29] LABS: BUN Creatinine Ratio 15.8 (6-22); Blood Urea Nitrogen 16 mg/dL (9-20); Carbon Dioxide 32 mmol/L (22-32); Chloride 100 mmol/L (98-107); Estimated Glomerular Filt Rate > 60.0 mL/min (>60); Glucose 112 mg/dL (80-110); HEMOLYSIS 19 (0-50); Magnesium 2.1 mg/dL (1.6-2.3); Potassium 4.2 mmol/L (3.4-5.1); Sodium 142 mmol/L (137-145)
[2019-12-13] MEDS: NYSTATIN CREAM 30 GM 1 APPLIC TOP (08:49)
[2019-12-13] MEDS: acetaZOLAMIDE 250 MG TABLET PO (08:50)
[2019-12-13] MEDS: APIXABAN 5 MG TABLET PO (08:50)
[2019-12-13] MEDS: METOPROLOL ER 50 MG TABLET 100 MG PO (08:51)
[2019-12-13] MEDS: SODIUM CHLORIDE 0.9% FLUSH 10 ML IV (08:51)
--- NOTE | 2019-12-13 11:53 | CM.DPC ---
DCP/continued: Reviewed chart. Per provider patient medically stable to d/c home today. Patient will require 02 and respiratory aware. On patient' behalf ELECTRICAL CAD DESIGNER placed call to sleep center to check on whether or not CPAP has been ordered? Spoke with Gabby and she confirms that they have ordered it through [facility]. Gabby reports that she will email company to find out delay? Met with patient provided him with information ELECTRICAL CAD DESIGNER received above. Patient appreciate of ELECTRICAL CAD DESIGNER looking into CPAP whereabouts for him. Provided patient with contact and name/number of sleep center for further questions. Patient seen by therapy and they have cleared patient to safely d/c home. P: Home today. Patient will be going home on home 02. ISAK Hernandez
--- NOTE | 2019-12-13 12:09 | P.DS_ITS ---
History of Present Illness History of Present Illness Chief complaint: Fluid overload and CHF Narrative: The patient is a 64-year-old male with a history of morbid obesity, cellulitis, obstructive sleep apnea, GERD who presents for progressive anasarca. Patient states his symptoms began in the fall. At that time he it had the flu. He reports following resolution of the fluid he became and noticeably more leidy rt of breath. Patient a sleep study and was confirmed to have obstructive sleep apnea. Unfortunately his CPAP machine was ordered but has not been delivered. Since that time he has had gradual weight gain. He continues to gain weight despite oral diuretics. He does know a loud snoring and waking at night. But no orthopnea. He has weeping of the lower extremities CC abdominal girth. Increasing weight. His primary care provider Dr. Santacruz was attempting to arrange an outpatient echo and was unsuccessful with doing this. The patient continues to have progressive swelling and edema and was admitted to the hospital for inpatient treatment after failed outpatient treatment with oral diuretics. Patient denies any fever or chills. He denies any orthopnea or PND. He has no nausea vomiting or diarrhea. He denies any headache blurred vision double vision. He denies chest pain. He does have occasional palpitations. Discharge Providers Provider Date of admission: 12/08/19 14:41 Discharge Date: 12/13/19 Primary care physician: Tigre Shankar MD Consults: 12/08/19 16:05 Consult to Dietitian, Adult Routine Comment: Reason For Exam: weight loss 12/12/19 10:12 Consult to Physical Therapy Evaluate & Treat Comment: Physician Instructions: Evaluate and Treat Discharge provider: Tana Catherine MD Summary Hospital Course Discharge Diagnosis: 1. Acute hypoxemic respiratory failure 2. Acute congestive heart failure secondary to reduced ejection fraction, systolic dysfunction 3. Anasarca 4. Obesity hypoventilation 5. Obstructive sleep apnea 6. Atrial fibrillation 7. Hypertension 8. Morbid obesity 9. GERD Hospital Course: Patient was admitted to the hospital for anasarca, progressive shortness of breath, failure to respond to outpatient diuretics. He was started on IV Lasix with excellent response. The patient underwent cardiac echo which showed the following;The left ventricle is mildly dilated. Left ventricular ejection fraction is estimated to be 20 +/- 5%. There is severe global hypokinesis of the left ventricle. The right ventricle is severely dilated. Right ventricular systolic function is moderate to severely reduced. Patient had a CT angio which was negative for pulmonary embolus, it did show pulmonary edema with small pleural effusions. The patient continued to be diuresis, he had 10 L of fluid removed, however he c ontinued to be hypoxemic at rest and with activity. O2 sat at rest was 89%. Patient desaturated further with ambulation. He had made significant improvement. And arrangements were made for him to be discharged home. Patient has had a sleep study as an outpatient but did not have his CPAP machine. Case management worked with the oxygen company to arrange for him to get his home CPAP. Patient did develop atrial fibrillation during the hospital stay. He was treated with metoprolol for rate control and Eliquis for anticoagulation. He tolerated this without difficulty. Given his extensive diuresis he developed a contraction alkalosis and was started on Diamox for this as well. Patient made slow but steady progress. Is deemed appropriate for discharge and arrangements were made for him to be discharged home. Exam Vital Signs (past 8 hours): - 12/13/19 04:40 12/13/19 05:32 12/13/19 08:51 Temperature 98.3 F Pulse Rate 101 H 90 Respiratory Rate 21 Blood Pressure 119/67 Pulse Oximetry 87 L 92 12/13/19 09:00 12/13/19 10:16 12/13/19 10:23 Temperature 98.5 F Pulse Rate 106 H 96 H Respiratory Rate 20 Blood Pressure 110/54 L Pulse Oximetry 91 93 93 12/13/19 10:24 Temperature Pulse Rate 93 H Respiratory Rate Blood Pressure Pulse Oximetry Oxygen Delivery Method Room Air Oxygen Flow Rate 2 Narrative Exam Narrative: Pleasant male in no acute distress Lungs: Decreased breath sounds but clear to auscultation Cardiac exam: Irregularly irregular normal S1-S2 Abdomen: Soft nontender nondistended Extremities: 1 to 2+ edema Objective Labs Result Diagrams: 12/13/19 08:00 Labs: Laboratory Results - last 24 hr 12/13/19 08:00 Sodium 142 Potassium 4.2 Chloride 100 Carbon Dioxide 32 BUN 16 Creatinine 1.01 Estimated GFR > 60.0 BUN/Creatinine Ratio 15.8 Glucose 112 H Calcium 10.0 Magnesium 2.1 Discharge Plan Discharge Plan Patient Disposition: Home Discharge orders & Medications Prescriptions: New metoprolol succinate 50 mg Tablet Extended Release 24 Hr 100 mg PO BID 30 Days Qty: 60 RF: 0 acetazolamide 250 mg Tablet 250 mg PO BID Qty: 15 RF: 0 nystatin 100,000 unit/gram Cream 1 applic topical BID Qty: 10 RF: 0 metformin [Glucophage XR] 500 mg Tablet Extended Release 24 Hr 500 mg PO 1700 Qty: 30 RF: 0 Eliquis 5 mg Tablet 5 mg PO BID Qty: 30 RF: 0 Continued naproxen 250 mg Tablet 250 mg PO BID PRN (Reason: pain) Qty: 0 RF: 0 bumetanide 2 mg tablet 2 mg PO BID Qty: 60 RF: 0 spironolactone 100 mg tablet 100 mg PO DAILY Qty: 30 RF: 0 vitamin B complex Tablet 1 tab PO DAILY RF: 0 vitamin B complex [B Complex-Vitamin B12] Tablet 1 tab PO DAILY RF: 0 acetaminophen [Tylenol] 325 mg Capsule 325 mg PO BID RF: 0 Zyrtec 10 mg Capsule 10 mg PO DAILY RF: 0 valacyclovir 1 gram tablet 2,000 mg PO BID PRN (Reason: herpes outbreak) RF: 0 Follow up/Referrals: Tigre Shankar MD [Primary Care Provider] - Diet/Activity/Treatments Diet: Carb-consistent/Diabetic, Low-sodium and Low-cholesterol Oxygen: 3 liters continuous Visit Report/Discharge Packet Instructions: DI for Heart Failure, Acetazolamide, Metoprolol, Metformin, Apixaban Visit Report Forms: Patient Portal/API, Stroke Signs & Symptoms Discharge Data Primary Care Provider: Tigre Shankar Quality VTE Deep Vein Thrombosis/Pulmonary Embolism Present on Admission: No
--- NOTE | 2019-12-13 19:29 | PC.NURSE ---
Discharge Note Patient A&O, VSS, 93% on 2L NC. All patient belongings packed and given to patient along with discharge information, no questions or concerns. Patient taken down via wheelchair along with oxygen tank. This RN helped patient onto personal vehicle.
== END 2019-12-13 18:00 | disposition home or self-care (01) | DRG 291 ==
PROVIDERS: Internal Medicine; Nurse Practitioner Adult Health; Admitting Provider Internal Medicine; PCP Student in an Organized Health Care Education/Training Program; Referring Provider Internal Medicine; Visit Provider Internal Medicine
DX: I11.0 Hypertensive heart disease with heart failure (principal); J96.21 Acute and chronic respiratory failure with hypoxia; Z68.42 Body mass index [BMI] 45.0-49.9, adult; E87.3 Alkalosis; E66.2 Morbid (severe) obesity with alveolar hypoventilation; I50.23 Acute on chronic systolic (congestive) heart failure; I48.0 Paroxysmal atrial fibrillation; E11.9 Type 2 diabetes mellitus without complications; K21.9 Gastro-esophageal reflux disease without esophagitis
CPT/HCPCS: 36415; 71045; 71275; 80048; 80053; 80061; 82570; 82962; 83036; 83735; 83880; 84156; 85379; 93005; 93010; 93306; 94618; 94660; 94760; 94762; 97116; 97161; J1650; J1940; J3480; Q9957

== ENCOUNTER → 2020-01-21 14:46 | Outpatient (CLI) | payer OTHER, SELFPAY ==
[2019-12-08 14:58] VITALS: BMI 47.0
[2020-01-21 16:02] LABS: BUN Creatinine Ratio 24.7 (6-22); Blood Urea Nitrogen 24 mg/dL (9-20); Calcium 9.6 mg/dL (8.4-10.2); Carbon Dioxide 24 mmol/L (22-32); Chloride 106 mmol/L (98-107); Estimated Glomerular Filt Rate > 60.0 mL/min (>60); Glucose 96 mg/dL (80-110); HEMOLYSIS < 15 (0-50); Potassium 4.5 mmol/L (3.4-5.1); Sodium 139 mmol/L (137-145)
== END ==
PROVIDERS: PCP Student in an Organized Health Care Education/Training Program; Referring Provider Internal Medicine Cardiovascular Disease; Visit Provider Internal Medicine Cardiovascular Disease
DX: I50.22 Chronic systolic (congestive) heart failure (principal)
CPT/HCPCS: 36415; 80048

== ENCOUNTER → 2020-03-23 17:02 | Outpatient (CLI) | payer OTHER, SELFPAY ==
[2019-12-08 14:58] VITALS: BMI 47.0
[2020-03-23 17:46] LABS: Hemoglobin A1C% w Est Avg Glu 6.3 % (4.0-6.0)
== END ==
PROVIDERS: PCP Student in an Organized Health Care Education/Training Program; Referring Provider Student in an Organized Health Care Education/Training Program; Visit Provider Student in an Organized Health Care Education/Training Program
DX: E11.9 Type 2 diabetes mellitus without complications (principal)
CPT/HCPCS: 36415; 83036

== ENCOUNTER → 2020-04-11 16:09 | Outpatient (CLI) | payer OTHER, SELFPAY ==
[2019-12-08 14:58] VITALS: BMI 47.0
--- NOTE | 2020-04-11 16:20 | DI.ECHO.S_ITS ---
Echocardiogram Report + + :Name: STEVEN SHAY Study Date: 04/11/2020 Height: 70 in : :[facility] Weight: 257 lb : : Gender: Male BSA: 2.3 m2 : :: 1955 Age: 64 yrs BP: 130/74 mmHg: :Reason For Study: Systolic Heart Failure : :Ordering Physician: JESSIE, : :GRETCHEN Performed By: Janee Martins : :Referring: GRETCHEN AGUERO : + + Interpretation Summary 1) Normal left ventricular size with moderately reduced systolic function (EF 30-35%). 2) The right ventricle is mild to moderately dilated. Right ventricular systolic function is moderately reduced. 3) No significant valvular anbormlaities. 4) The ascending aorta is mildly enlarged at 3.9cm. 5) Atrial fibrillation with ventricular rates in the 92-114bpm present during the study. 6) Compared to the Echo done 12/09/2019, LVEF has improved from about 20% to 30-35% on this study. Procedure: A two-dimensional transthoracic echocardiogram with color flow and Doppler was performed. The study quality was technically adequate. Comparison is made with the echocardiogram of 12/09/2019. The patient was in atrial fibrillation with heart rates between 92-114 bpm during the exam. Left Ventricle: The left ventricle is normal in size. Left ventricular wall thickness is mildly increased. The ejection fraction is estimated to be 30- 35%. Diastolic function could not be accurately assessed due to atrial fibrillation. Right Ventricle: The right ventricle is mild to moderately dilated. Right ventricular systolic function is moderately reduced. Atria: The left atrium is mildly dilated. The right atrium is borderline dilated. There is no Doppler evidence for an interatrial shunt. Mitral Valve: The mitral valve leaflets appear mildly thickened, but open well. There is mild mitral annular calcification. There is trace mitral regurgitation. Aortic Valve: The aortic valve is trileaflet. The aortic valve opens well. There is no aortic valve stenosis. There is no aortic regurgitation. Tricuspid Valve: The tricuspid valve is normal in structure and function. The right ventricular systolic pressure is estimated to be at least 29 mmHg based on an estimated right atrial pressure of 3 mm Hg. There is mild tricuspid regurgitation. Pulmonic Valve: The pulmonic valve is normal in structure and function. There is no pulmonic valvular regurgitation. Great Vessels: The aortic root is normal size. The ascending aorta is mildly enlarged. The IVC is of normal diameter and collapses greater than 50% with a sniff. This suggests a low right atrial pressure of 3 mm Hg. Pericardium/ Pleura There is no pericardial effusion. There is no pleural effusion. MMode/2D Measurements & Calculations LVIDd: 5.3 cm LVOT diam: 2.4 cm LVIDs: 4.4 cm Ao root diam: 3.4 cm FS: 18.5 % asc Aorta Diam: 3.9 cm EPSS: 0.68 cm IVSd: 1.00 cm LVPWd: 1.1 cm LV faith. diameter/BSA (cm/m^2): 2.3 LV sys. diameter/BSA (cm/m^2): 1.9 LA A2 area: 28.3 cm2 RA long axis: 5.9 cm LA A4 area: 23.5 cm2 RA area: 22.0 cm2 LA length (vol): 6.3 cm RA vol: 69.7 ml LA vol: 89.6 ml RA : 30.0 ml/m2 LA vol index: 38.6 ml/m2 IVC diam: 2.7 cm RVD1 (basal): 4.6 cm TAPSE: 1.3 cm Doppler Measurements & Calculations Ao V2 max: 138.4 cm/sec LVOT Max Ananth: 102.5 cm/sec Ao V2 mean: 98.4 cm/sec LV V1 max P.2 mmHg Ao max P.7 mmHg LV V1 VTI: 17.3 cm Ao mean P.4 mmHg ADELINA(I,D): 2.9 cm2 Ao V2 VTI: 26.1 cm ADELINA(V,D): 3.2 cm2 sev ratio: 0.66 ADELINA indexed to BSA (cm^2/m^2): 1.2 MV E max ananth: 94.4 cm/sec TR max ananth: 256.0 cm/sec MV A max ananth: 0.52 cm/sec TR max P.2 mmHg MV E/A: 180.0 PA V2 max: 79.2 cm/sec Med Peak E' Ananth: 7.1 cm/sec PA V2 mean: 56.7 cm/sec E/E' med: 13.3 PA mean P.4 mmHg Lat Peak E' Ananth: 8.4 cm/sec PA pr(Accel): 15.6 mmHg E/E' lat: 11.3 E/e' average: 12.3 MV dec time: 0.20 sec SV(LVOT): 75.6 ml Reading Physician:10:15 AM
== END ==
PROVIDERS: PCP Student in an Organized Health Care Education/Training Program; Referring Provider Internal Medicine Cardiovascular Disease; Visit Provider Internal Medicine Cardiovascular Disease
DX: I07.1 Rheumatic tricuspid insufficiency (principal); I50.22 Chronic systolic (congestive) heart failure; I77.89 Other specified disorders of arteries and arterioles
CPT/HCPCS: 93306

== ENCOUNTER → 2020-04-27 16:40 | Outpatient (CLI) | payer OTHER, SELFPAY ==
[2019-12-08 14:58] VITALS: BMI 47.0
[2020-04-27 18:20] LABS: Add Manual Diff / Slide Review NO; Basophils Absolute Auto 100 /uL (0-100); Basophils Percent Auto 1.1 % (0-2); Eosinophils Absolute Auto 200 /uL (0-450); Eosinophils Percent Auto 3.1 % (2-4); Hematocrit 42.2 % (41-53); Hemoglobin 14.4 g/dL (13.5-17.5); Lymphocytes Absolute Auto 1900 /uL (1100-4500); Lymphocytes Percent Auto 32.7 % (25-40); Mean Corpuscular HGB Conc 34.2 % (30-36); Mean Corpuscular Hemoglobin 34.1 PG (26-34); Mean Corpuscular Volume 99.8 fL (80-100); Monocytes Absolute Auto 600 /uL (0-900); Monocytes Percent Auto 11.2 % (3-14); Neutrophils Absolute Auto 2900 /uL (1500-7000); Neutrophils Percent Auto 51.9 % (50-75); Platelet Count 185 X10^3/uL (150-400); Red Blood Cell Count 4.23 X10^6/uL (4.5-5.9); Red Cell Distribution Width 14.9 % (11.6-14.8); White Blood Cell Count 5.7 X10^3/uL (4.5-11.0)
[2020-04-27 18:26] LABS: BUN Creatinine Ratio 29.9 (6-22); Blood Urea Nitrogen 23 mg/dL (9-20); Calcium 9.7 mg/dL (8.4-10.2); Carbon Dioxide 23 mmol/L (22-32); Chloride 110 mmol/L (98-107); Estimated Glomerular Filt Rate > 60.0 mL/min (>60); Glucose 90 mg/dL (80-110); HEMOLYSIS < 15 (0-50); Potassium 3.7 mmol/L (3.4-5.1); Sodium 141 mmol/L (137-145)
== END ==
PROVIDERS: PCP Student in an Organized Health Care Education/Training Program; Referring Provider Internal Medicine Cardiovascular Disease; Visit Provider Internal Medicine Cardiovascular Disease
DX: I50.22 Chronic systolic (congestive) heart failure (principal)
CPT/HCPCS: 36415; 80048; 85025

== ENCOUNTER → 2020-08-01 10:31 | Outpatient (CLI) | payer OTHER, SELFPAY ==
[2019-12-08 14:58] VITALS: BMI 47.0
--- NOTE | 2020-08-01 | DI.ECHO.S_ITS ---
[facility]---------+ [facility] +---------+ : : [address] : : : : [id number] : : : : Phone: [phone]+ Echocardiogram Report + + :Name: STEVEN SHAY Study Date: 08/01/2020 Height: 70 in : :[facility] Weight: 242 lb : : Gender: Male BSA: 2.3 m2 : :: 1955 Age: 64 yrs BP: 141/92 mmHg: :Reason For Study: SYSTOLIC HEART FAILURE : :Ordering Physician: JESSIE, : :GRETCHEN Performed By: Janee Martins : :Referring: GRETCHEN AGUERO : + + Interpretation Summary 1) Normal left ventricular thickness, size, wall motion, and systolic function (EF 55-60%). 2) Upper normal right ventricular size with normal function. 3) No significant valvular abnormalities. 4) The ascending aorta is mildly enlarged at 3.9cm 5) Compared to the Echo done 04/11/2020, LVEF has improved from 30-35% to 55- 60% on this study. Procedure: A two-dimensional transthoracic echocardiogram with color flow and Doppler was performed. The study quality was technically adequate. Comparison is made with the echocardiogram of 04/11/2020. The patient was in sinus bradycardia with heart rates between 48-56 bpm during the exam. Left Ventricle: The left ventricle is normal in size and wall thickness. The ejection fraction is estimated to be 55-60%. Diastolic parameters suggest a relaxation abnormality of the left ventricle, consistent with probable normal filling pressures. Right Ventricle: The right ventricle is at the upper limits of normal in size. The right ventricular systolic function is normal. Atria: The left atrium is moderately dilated. Right atrial size is normal. There is no Doppler evidence for an interatrial shunt. Mitral Valve: The mitral valve is normal in structure and function. There is mild mitral regurgitation. Aortic Valve: The aortic valve is trileaflet. The aortic valve opens well. There is no aortic valve stenosis. No aortic regurgitation is present. Tricuspid Valve: The tricuspid valve is normal in structure and function. There is trace tricuspid regurgitation. Pulmonary artery pressures cannot be estimated because of the lack of a measurable TR jet velocity but the IVC suggests a CVP of around 3 mmHg. Pulmonic Valve: The pulmonic valve leaflets are thin and pliable; valve motion is normal. There is trace pulmonic regurgitation. Great Vessels: The aortic root is normal size. The ascending aorta is mildly enlarged. The IVC is of normal diameter and collapses greater than 50% with a sniff. This suggests a low right atrial pressure of 3 mm Hg. Pericardium/ Pleura There is no pericardial effusion. There is no pleural effusion. MMode/2D Measurements & Calculations LVIDd: 5.2 cm LVOT diam: 2.4 cm LVIDs: 3.4 cm Ao root diam: 3.7 cm FS: 34.4 % asc Aorta Diam: 3.9 cm EPSS: 0.46 cm Ao Arch Diam (Prox Trans): 3.2 cm IVSd: 1.0 cm LVPWd: 0.94 cm LV faith. diameter/BSA (cm/m^2): 2.3 LV sys. diameter/BSA (cm/m^2): 1.5 LA A2 area: 27.5 cm2 RA long axis: 5.5 cm LA A4 area: 25.1 cm2 RA area: 21.4 cm2 LA length (vol): 6.1 cm RA vol: 70.6 ml LA vol: 95.4 ml RA : 31.2 ml/m2 LA vol index: 42.2 ml/m2 IVC diam: 1.8 cm RVD1 (basal): 4.4 cm TAPSE: 2.0 cm Doppler Measurements & Calculations Ao V2 max: 151.5 cm/sec LVOT Max Ananth: 124.3 cm/sec Ao V2 mean: 98.8 cm/sec LV V1 max P.2 mmHg Ao max P.2 mmHg LV V1 VTI: 25.9 cm Ao mean P.5 mmHg ADELINA(I,D): 3.5 cm2 Ao V2 VTI: 35.0 cm ADELINA(V,D): 3.8 cm2 sev ratio: 0.74 ADELINA indexed to BSA (cm^2/m^2): 1.5 MV E max ananth: 71.3 cm/sec PA V2 max: 73.0 cm/sec MV A max ananth: 77.0 cm/sec PA V2 mean: 48.1 cm/sec MV E/A: 0.93 PA mean P.1 mmHg Med Peak E' Ananth: 5.1 cm/sec PA pr(Accel): 41.3 mmHg E/E' med: 13.9 Lat Peak E' Ananth: 7.4 cm/sec E/E' lat: 9.6 E/e' average: 11.8 MV dec time: 0.22 sec SV(LVOT): 121.4 ml Reading Physician:05:06 PM
== END ==
PROVIDERS: PCP Student in an Organized Health Care Education/Training Program; Referring Provider Internal Medicine Cardiovascular Disease; Visit Provider Internal Medicine Cardiovascular Disease
DX: I34.0 Nonrheumatic mitral (valve) insufficiency (principal); I50.22 Chronic systolic (congestive) heart failure; I77.89 Other specified disorders of arteries and arterioles
CPT/HCPCS: 93306

== ENCOUNTER → 2020-08-08 16:23 | Outpatient (CLI) | payer OTHER, SELFPAY ==
[2020-08-02 10:06] VITALS: BMI 47.0
[2020-08-08 18:25] LABS: Hemoglobin A1C% w Est Avg Glu 5.5 % (4.0-6.0)
== END ==
PROVIDERS: PCP Student in an Organized Health Care Education/Training Program; Referring Provider Student in an Organized Health Care Education/Training Program; Visit Provider Student in an Organized Health Care Education/Training Program
DX: E11.9 Type 2 diabetes mellitus without complications (principal)
CPT/HCPCS: 36415; 83036

== ENCOUNTER → 2020-09-06 10:25 | Outpatient (CLI) | payer OTHER, SELFPAY ==
[2020-08-02 10:06] VITALS: BMI 47.0
[2020-09-06 12:45] LABS: COVID19 -Nasal RAPID Negative (Negative)
== END ==
PROVIDERS: PCP Student in an Organized Health Care Education/Training Program; Visit Provider Physician Assistant
DX: Z11.59 Encounter for screening for other viral diseases (principal)
CPT/HCPCS: 87635

== ENCOUNTER → 2020-09-07 09:10 | Outpatient (CLI) | payer OTHER, SELFPAY ==
[2020-08-02 10:06] VITALS: BMI 47.0
--- NOTE | 2020-09-08 19:36 | DI.NM.S_ITS ---
DATE OF SERVICE: 09/07/2020 PROCEDURE: Exercise perfusion study. INDICATIONS: Congestive heart failure, paroxysmal AFib, right bundle branch block, diabetes mellitus, hypertension, hyperlipidemia and obstructive sleep apnea. RADIOPHARMACEUTICAL: 25.9 millicurie technetium-99m Myoview IV was injected at stress and 24.6 millicurie technetium-99m Myoview IV was injected at rest. CARDIAC STRESS: The patient underwent exercise perfusion study under the supervision of an attending staff. He walked on the Michele protocol for 10 minutes and 01 seconds, achieved 83 percent of target heart rate, and normal hemodynamic response with normal blood pressure response. Functional aerobic impairment -20 percent, achieved 12.8 METs of workload. No anginal symptoms. Baseline EKG revealed sinus rhythm with right bundle branch block. During stress, no convincing ischemic changes or new arrhythmias. RAW DATA: There is increased subdiaphragmatic activity. The patient's weight is 235 pounds. GATED STUDY: Resting LV ejection fraction 60 and stress LV ejection fraction 73 percent without any obvious wall motion abnormalities. Resting end-diastolic volume 161 mL. TID ratio 0.87, which is within normal limits. Lung/heart ratio 0.27, which is within normal limits. MYOCARDIAL PERFUSION: Stress supine, resting supine and stress prone images were compared to each other. The stress supine and resting supine images revealed moderate-size, mild to moderately decreased perfusion of inferior wall, distal inferoseptum, which got completely resolved during prone images, suggestive of diaphragmatic tissue attenuation artifact. CONCLUSION: I will call this study likely a normal myocardial perfusion study with evidence of diaphragmatic tissue attenuation artifact, which got resolved during prone images. Good exercise tolerance. Functional aerobic impairment - 20% percent. Mildly blunted heart rate response. Patient was on his cardiac medication. Normal blood pressure response. Underlying right bundle branch block. Overall, this is a low-risk myocardial perfusion scan. Theodore Kirkland - ELOY/shae/rika doc#: [id number]/job#: [id number] dd: 09/08/2020 17:29:00 dt: 09/08/2020 18:40:00 DICTATING MD/COPIES TO: Lakeisha Albright MD COPIES MNE: LAURYN;
== END ==
PROVIDERS: PCP Student in an Organized Health Care Education/Training Program; Referring Provider Internal Medicine Cardiovascular Disease; Visit Provider Internal Medicine Cardiovascular Disease
DX: I50.22 Chronic systolic (congestive) heart failure (principal); I48.0 Paroxysmal atrial fibrillation; I45.10 Unspecified right bundle-branch block; E11.9 Type 2 diabetes mellitus without complications; I10 Essential (primary) hypertension; E78.5 Hyperlipidemia, unspecified; G47.33 Obstructive sleep apnea (adult) (pediatric)
CPT/HCPCS: 78452; 93017; A9502

== ENCOUNTER → 2020-09-18 09:30 | Outpatient (CLI) | payer OTHER, SELFPAY ==
[2020-08-02 10:06] VITALS: BMI 47.0
[2020-09-18 10:36] LABS: COVID19 -Nasal RAPID Negative (Negative)
== END ==
PROVIDERS: PCP Student in an Organized Health Care Education/Training Program; Visit Provider Specialist
DX: Z01.812 Encounter for preprocedural laboratory examination (principal); Z20.828 Contact with and (suspected) exposure to other viral communicable diseases
CPT/HCPCS: 87635; C9803

== ENCOUNTER 2020-09-19 10:16 | Day surgery (SDC) | payer OTHER, SELFPAY ==
[2020-08-02 10:06] VITALS: BMI 47.0
[2020-09-14 13:47] VITALS: BMI 34.7
[2020-09-19 10:46] VITALS: BP 136/87; PULSE 66; RESP 16; TEMP 36.2; O2SAT 97; BMI 34.7
[2020-09-19] MEDS: LACTATED RINGERS 1,000 ML 42 ML IV (10:53)
--- NOTE | 2020-09-19 11:32 | SUR.PREOP ---
Dr Casiano explaining to patient that surgery would have to be cancelled due to patient's use of Elaquis previous p.m. Patient verbalizes understanding. This nurse call Dr Casiano's office to notify of cancellation and reason for. Home with friend in stable condition.
--- NOTE | 2020-09-19 13:05 | P.HP_ITS ---
History of Present Illness History of Present Illness Chief complaint: [facility] [place] Patient History Medical History (Updated 09/18/20 @ 11:44 by Emerald Giordano RN) Anasarca BPH (benign prostatic hyperplasia) Cellulitis Diabetes Essential hypertension GERD (gastroesophageal reflux disease) Herpes History of cardioversion (04/2020) Obesity with serious comorbidity (12/09/17) TODD on CPAP Vitamin D deficiency Surgical History (Updated 09/18/20 @ 11:02 by Emerald Giordano RN) History of colonoscopy Family & Social History Family History Mother Heart disease Cancer Stroke Father Stroke Social History: household members none lives independently Yes caregiver/support person No Tobacco & Substance use: Smoking Status Former smoker alcohol intake current alcohol intake frequency 0-2 drinks per day Substance Use Type marijuana Meds Home Medications and Allergies Home Medications Medication Instructions Recorded Confirmed Type naproxen 250 mg PO BID PRN #0 10/12/06 09/19/20 History Zyrtec 10 mg PO DAILY 12/08/19 09/19/20 History acetaminophen [Tylenol] 325 mg PO BID 12/08/19 09/19/20 History vitamin B complex [B 1 tab PO DAILY 12/08/19 09/19/20 History Complex-Vitamin B12] contour test strips #1 ea 01/05/20 08/15/20 Rx lancets #1 ea 01/05/20 08/15/20 Rx valacyclovir 1 gram tablet 2,000 mg PO BID PRN #4 tab 02/02/20 09/19/20 Rx losartan 25 mg tablet 25 mg PO DAILY 03/23/20 09/19/20 History apixaban 5 mg tablet 5 mg PO BID #180 tab 03/31/20 09/19/20 Rx metoprolol succinate 100 mg 100 mg PO BID #180 tab 04/12/20 09/19/20 Rx tablet,extended release 24 hr spironolactone 25 mg tablet 25 mg PO DAILY 04/28/20 09/19/20 History metformin 500 mg tablet,extended 500 mg PO 1700 #90 tab 06/26/20 09/19/20 Rx release 24 hr Allergies Allergy/AdvReac Type Severity Reaction Status Date / Time No Known Drug Allergies Allergy Verified 09/19/20 10:40 Exam Vital Signs (past 8 hours): - 09/19/20 10:46 Temperature 97.2 F L Pulse Rate 66 Respiratory Rate 16 Blood Pressure 136/87 Pulse Oximetry 97 Oxygen Delivery Method Room Air Assessment & Plan Assessment & Plan narrative: Operation canceled. The patient did not stop his Eliquis. We will reschedule.
== END 2020-09-19 11:41 | disposition home or self-care (01) ==
LOC: OR 10:22
PROVIDERS: PCP Student in an Organized Health Care Education/Training Program; Referring Provider Specialist; Visit Provider Specialist
DX: K42.0 Umbilical hernia with obstruction, without gangrene (principal); Z53.09 Procedure and treatment not carried out because of other contraindication
CPT/HCPCS: 49585; 82962; 85610

== ENCOUNTER → 2020-09-23 10:19 | Outpatient (CLI) | payer OTHER, SELFPAY ==
[2020-08-02 10:06] VITALS: BMI 47.0
[2020-09-23 11:30] LABS: COVID19 -Nasal RAPID Negative (Negative)
== END ==
PROVIDERS: PCP Student in an Organized Health Care Education/Training Program; Visit Provider Physician Assistant
DX: Z20.828 Contact with and (suspected) exposure to other viral communicable diseases (principal)
CPT/HCPCS: 87635

== ENCOUNTER 2020-09-25 12:05 | Day surgery (SDC) | payer OTHER, SELFPAY ==
[2020-08-02 10:06] VITALS: BMI 47.0
[2020-09-20 07:52] VITALS: BMI 34.7
[2020-09-25] VITALS (8 sets, daily range): BP systolic 124–154; BP diastolic 81–96; PULSE 64–76; RESP 10–20; TEMP 36.4–36.8; O2SAT 95–96; BMI 34.7
--- NOTE | 2020-09-25 13:51 | PM.PREOP ---
Pre-operative Note COVID-19 COVID-19 status: Negative Result date/Date tested (Pos, Neg/Pending): 09/22/20 Interval Note History & Physical reviewed/Exam performed by Physician: Yes Changes to H&P: No
[2020-09-25] MEDS: LACTATED RINGERS 1,000 ML 100 ML IV ×2 (13:57→16:37)
--- NOTE | 2020-09-25 15:29 | PM.PREOP ---
Pre-operative Note COVID-19 COVID-19 status: Negative Result date/Date tested (Pos, Neg/Pending): 09/22/20 Interval Note History & Physical reviewed/Exam performed by Physician: Yes Changes to H&P: Yes H&P completed within 30 days and has changed as indicated here:: Patient was here last week for repair but had not stop taking his anticoagulant. He was rescheduled for today. It is been 2 days since his last does of air apixaban
[2020-09-25] MEDS: CEFAZOLIN 1 GM VIAL 2 GM IV (15:46)
--- NOTE | 2020-09-25 15:52 | SUR.OPER ---
Supine on padded OR bed, head on pillow, arms secured on padded arm boards at <90 degrees abduction, legs uncrossed, safety belt at thigh, tape over blanket over lower legs.
[2020-09-25] MEDS: BUPIVACAINE 0.5% (PF) VIAL 30 ML INJ (16:07)
--- NOTE | 2020-09-25 17:00 | PM.OP.1 ---
Operative Date/Time/Diagnoses Date of procedure: 09/25/20 Time of procedure: 17:00 Pre-op diagnosis: Incarcerated umbilical hernia Post-op diagnosis: same Procedure & Clinicians Procedure: Repair Same procedure as scheduled: Yes Indications: Symptomatic hernia. Patient did not want mesh used. Surgeon: Montrell Casiano Click Yes if Unassisted: Yes Anesthesia Type: General Operative Notes Findings: Defect with sac containing omentum. Closure Type: primary Specimen(s): none sent Prosthetic devices, grafts, tissues, transplants, or devices: None Estimated Blood Loss (mL): 5 Blood products transfused: none Procedure in detail: The patient is placed supine on the operating room table underwent general LMA anesthesia. He was prepped and draped in the usual fashion. Curvilinear incision was made the left side of the umbilicus. It was carried down to the level of the hernia sac. Sac was from surrounding structures and dissected off the overlying skin. Sac was entered and found to contain omentum which I could not reduce. Therefore I excised it and ligated the base with interrupted suture of 3-0 Vicryl. This was allowed to retract and I dissected it back part way circumferentially around the edge of the fascia so that I could see where sutures were being placed. I also dissected some the subcu fat off the overlying fascia. Two [id number] 1. Ethibonds were used to close the defect. It appeared to be adequate. The subQ was closed with interrupted 3 0 Vicryl. The skin was closed running 4-0 Vicryl subcuticular stitch and Steri-Strips. Dressing was applied. Patient tolerated the procedure well. He was extubated after or being awakened and taken to the recovery room good condition. Complications: none Post-operative Condition: stable Disposition: PACU
[2020-09-25] MEDS: ACETAMINOPHEN 325 MG TABLET PO (17:10)
[2020-09-25] MEDS: OXYCODONE IR 5 MG TABLET PO (17:10)
== END 2020-09-25 17:52 | disposition home or self-care (01) ==
PROVIDERS: PCP Student in an Organized Health Care Education/Training Program; Referring Provider Student in an Organized Health Care Education/Training Program; Visit Provider Specialist
PROC: (CPT 49587; principal; 2020-09-25 13:45)
DX: K42.0 Umbilical hernia with obstruction, without gangrene (principal); E11.9 Type 2 diabetes mellitus without complications; Z79.84 Long term (current) use of oral hypoglycemic drugs; I10 Essential (primary) hypertension; K21.9 Gastro-esophageal reflux disease without esophagitis; E66.9 Obesity, unspecified; G47.33 Obstructive sleep apnea (adult) (pediatric); E55.9 Vitamin D deficiency, unspecified; Z79.01 Long term (current) use of anticoagulants
CPT/HCPCS: 49587; 82962; J0690; J1100; J2405; J2704; J3010

== ENCOUNTER → 2020-11-16 17:26 | Outpatient (CLI) | payer OTHER, SELFPAY ==
[2020-08-02 10:06] VITALS: BMI 47.0
[2020-11-16 18:15] LABS: Hemoglobin A1C% w Est Avg Glu 5.2 % (4.0-6.0)
== END ==
PROVIDERS: PCP Student in an Organized Health Care Education/Training Program; Referring Provider Student in an Organized Health Care Education/Training Program; Visit Provider Student in an Organized Health Care Education/Training Program
DX: E11.9 Type 2 diabetes mellitus without complications (principal)
CPT/HCPCS: 36415; 83036

== ENCOUNTER → 2020-11-30 10:38 | Outpatient (CLI) | payer OTHER, SELFPAY ==
[2020-08-02 10:06] VITALS: BMI 47.0
[2020-11-30 11:54] LABS: Add Manual Diff / Slide Review NO; Basophils Absolute Auto 0 /uL (0-100); Basophils Percent Auto 0.7 % (0-2); Eosinophils Absolute Auto 200 /uL (0-450); Eosinophils Percent Auto 3.7 % (2-4); Hematocrit 44.9 % (41-53); Hemoglobin 15.4 g/dL (13.5-17.5); Lymphocytes Absolute Auto 1700 /uL (1100-4500); Lymphocytes Percent Auto 35.3 % (25-40); Mean Corpuscular HGB Conc 34.2 % (30-36); Mean Corpuscular Hemoglobin 34.6 PG (26-34); Mean Corpuscular Volume 101.1 fL (80-100); Monocytes Absolute Auto 600 /uL (0-900); Monocytes Percent Auto 13.5 % (3-14); Neutrophils Absolute Auto 2200 /uL (1500-7000); Neutrophils Percent Auto 46.8 % (50-75); Platelet Count 186 X10^3/uL (150-400); Red Blood Cell Count 4.44 X10^6/uL (4.5-5.9); Red Cell Distribution Width 13.1 % (11.6-14.8); White Blood Cell Count 4.8 X10^3/uL (4.5-11.0)
[2020-11-30 12:06] LABS: Blood Urea Nitrogen 18 mg/dL (9-20); Calcium 9.6 mg/dL (8.4-10.2); Carbon Dioxide 22 mmol/L (22-32); Chloride 107 mmol/L (98-107); Estimated Glomerular Filt Rate > 60.0 mL/min (>60); Glucose 115 mg/dL (80-110); HEMOLYSIS < 15 (0-50); Potassium 4.7 mmol/L (3.4-5.1); Sodium 138 mmol/L (137-145)
== END ==
PROVIDERS: PCP Student in an Organized Health Care Education/Training Program; Referring Provider Internal Medicine Cardiovascular Disease; Visit Provider Internal Medicine Cardiovascular Disease
DX: I48.19 Other persistent atrial fibrillation (principal)
CPT/HCPCS: 36415; 80048; 85025

== ENCOUNTER → 2021-01-11 15:46 | Outpatient (CLI) | payer OTHER, SELFPAY ==
[2020-08-02 10:06] VITALS: BMI 47.0
--- NOTE | 2021-01-11 15:47 | DI.ECHO.S_ITS ---
[facility] +---------+ : : [address] : : : : [id number] : : : : Phone: [phone]+ Echocardiogram Report + + :Name: STEVEN SHAY Study Date: 01/11/2021 Height: 70 in : :[facility] ReadingLocation: Weight: 235 lb : : Gender: Male BSA: 2.2 m2 : :: 1955 Age: 65 yrs BP: 139/85 mmHg: :Reason For Study: Chest pain : :Ordering Physician: LEAH, : :SANJANA Performed By: Abel Hernández : :Referring: SANJANA LYNN : + + Interpretation Summary This is a limited echo to gauge wall motion and possible pericardial effusion following ablation performed yesterday. Indeterminate rhythm (suspect afib). Heart rate is 75 bpm with wide QRS complexes. Mild RV enlargement. Otherwise grossly normal chamber sizes. No pericardial effusion. Compared to prior study 08/01/2020 pt is no longer in sinus rhythm. RV is more dilated. Procedure: A two-dimensional transthoracic echocardiogram with color flow and Doppler was performed in limited views only. The study quality was technically adequate. Comparison is made with the echocardiogram of 08/01/2020. The patient was in sinus rhythm with heart rates between 73-76 bpm during the exam. Left Ventricle: The left ventricle is normal in size and wall thickness. Left ventricular systolic function is normal. The ejection fraction is estimated to be 55-60%. There are no focal wall motion abnormalities. Right Ventricle: The right ventricle is mild to moderately dilated. Right ventricular systolic function is mildly reduced. Tricuspid Valve: The tricuspid valve is normal in structure and function. There is mild tricuspid regurgitation. The right ventricular systolic pressure is estimated to be at least 38 mmHg based on an estimated right atrial pressure of 8 mm Hg. Great Vessels: The IVC is dilated (diameter is greater than 2.1 cm) yet it collapses greater than 50% with a sniff. This suggests a right atrial pressure of 8 mm Hg. Pericardium/ Pleura There is no pericardial effusion. MMode/2D Measurements & Calculations LVIDd: 5.6 cm IVC diam: 2.3 cm LVIDs: 3.8 cm FS: 33.0 % IVSd: 0.78 cm LVPWd: 0.96 cm LV faith. diameter/BSA (cm/m^2): 2.5 LV sys. diameter/BSA (cm/m^2): 1.7 RVD1 (basal): 4.4 cm TAPSE: 1.5 cm Doppler Measurements & Calculations TR max moises: 268.3 cm/sec TR max P.8 mmHg Electronically signed by: Juliet Price M.D. on Reading Physician:01/11/2021 05:13 PM
== END ==
PROVIDERS: PCP Student in an Organized Health Care Education/Training Program; Referring Provider Internal Medicine Cardiovascular Disease; Visit Provider Internal Medicine Cardiovascular Disease
DX: I07.1 Rheumatic tricuspid insufficiency (principal); R07.9 Chest pain, unspecified; I50.22 Chronic systolic (congestive) heart failure
CPT/HCPCS: 93307

== ENCOUNTER → 2021-12-05 16:55 | Outpatient (CLI) | payer OTHER, SELFPAY ==
[2020-08-02 10:06] VITALS: BMI 47.0
[2021-12-05 17:32] LABS: Add Manual Diff / Slide Review NO; Basophils Absolute Auto 100 /uL (0-100); Basophils Percent Auto 1.1 % (0-2); Eosinophils Absolute Auto 200 /uL (0-450); Eosinophils Percent Auto 2.9 % (2-4); Hematocrit 43.2 % (41-53); Hemoglobin 14.9 g/dL (13.5-17.5); Lymphocytes Absolute Auto 1800 /uL (1100-4500); Lymphocytes Percent Auto 34.1 % (25-40); Mean Corpuscular HGB Conc 34.5 % (30-36); Mean Corpuscular Hemoglobin 33.5 PG (26-34); Mean Corpuscular Volume 96.9 fL (80-100); Monocytes Absolute Auto 700 /uL (0-900); Monocytes Percent Auto 13.2 % (3-14); Neutrophils Absolute Auto 2600 /uL (1500-7000); Neutrophils Percent Auto 48.7 % (50-75); Platelet Count 191 X10^3/uL (150-400); Red Blood Cell Count 4.46 X10^6/uL (4.5-5.9); Red Cell Distribution Width 13.1 % (11.6-14.8); White Blood Cell Count 5.3 X10^3/uL (4.5-11.0)
[2021-12-05 17:43] LABS: BUN Creatinine Ratio 17.4 (6-22); Blood Urea Nitrogen 16 mg/dL (9-20); Calcium 9.5 mg/dL (8.4-10.2); Carbon Dioxide 26 mmol/L (22-32); Chloride 109 mmol/L (98-107); Estimated Glomerular Filt Rate > 60.0 mL/min (>60); Glucose 105 mg/dL (80-110); HEMOLYSIS < 15 (0-50); Potassium 4.1 mmol/L (3.4-5.1); Sodium 141 mmol/L (137-145)
== END ==
PROVIDERS: PCP Student in an Organized Health Care Education/Training Program; Referring Provider Internal Medicine Cardiovascular Disease; Visit Provider Internal Medicine Cardiovascular Disease
DX: I10 Essential (primary) hypertension (principal)
CPT/HCPCS: 36415; 80048; 85025

== ENCOUNTER → 2022-01-03 11:49 | Outpatient (CLI) | payer OTHER, SELFPAY ==
[2020-08-02 10:06] VITALS: BMI 47.0
[2022-01-03 12:16] LABS: Hemoglobin A1C% w Est Avg Glu 5.7 % (4.0-6.0)
[2022-01-03 12:55] LABS: Prostate Specific Antigen Scrn 0.981 ng/mL (0.1-4.0)
[2022-01-03 15:34] LABS: Creatinine Urine Random 58.8 mg/dL
[2022-01-03 15:42] LABS: Microalbumin Urine Random < 0.6 mg/dL (0-1.6)
== END ==
PROVIDERS: PCP Student in an Organized Health Care Education/Training Program; Referring Provider Student in an Organized Health Care Education/Training Program; Visit Provider Student in an Organized Health Care Education/Training Program
DX: E11.9 Type 2 diabetes mellitus without complications (principal); Z12.5 Encounter for screening for malignant neoplasm of prostate
CPT/HCPCS: 36415; 82043; 82570; 83036; G0103

== ENCOUNTER → 2022-07-09 12:23 | Outpatient (CLI) | payer OTHER, SELFPAY ==
[2020-08-02 10:06] VITALS: BMI 47.0
[2022-07-09 13:46] LABS: Hemoglobin A1C% w Est Avg Glu 5.6 % (4.0-6.0)
[2022-07-09 14:18] LABS: TSH w/ Reflex to FT4 2.42 uIU/mL (0.47-4.68)
== END ==
PROVIDERS: PCP Student in an Organized Health Care Education/Training Program; Referring Provider Student in an Organized Health Care Education/Training Program; Visit Provider Student in an Organized Health Care Education/Training Program
DX: E06.9 Thyroiditis, unspecified (principal); E11.9 Type 2 diabetes mellitus without complications
CPT/HCPCS: 36415; 83036; 84443

== ENCOUNTER 2022-09-10 12:43 | Emergency (ER) | payer OTHER, SELFPAY ==
[2020-08-02 10:06] VITALS: BMI 47.0
[2022-09-10] VITALS (48 sets, daily range): BP systolic 110–162; BP diastolic 66–108; PULSE 63–106; RESP 11–28; O2SAT 93–98; BMI 37.3
--- NOTE | 2022-09-10 12:50 | DI.RAD.S_ITS ---
PROCEDURE: XR CHEST 1V INDICATIONS: chest pain TECHNIQUE: One view of the chest was acquired. COMPARISON: [facility], CR, XR CHEST 1V, 12/08/2019, 16:19. FINDINGS: Surgical changes and devices: None. Lungs and pleura: Focal opacity noted in the left lung base involving the left costophrenic angle. No pleural effusions or pneumothorax. Mediastinum: Mediastinal contours appear normal. Heart is enlarged. Bones and chest wall: No suspicious bony lesions. Overlying soft tissues appear unremarkable. IMPRESSION: Left basilar focal opacity concerning for atelectasis or pneumonia. Recommend follow-up chest x-ray in 30 days to exclude underlying neoplastic process. Dictated by: Trini Heath MD, PhD on 09/10/2022 at 13:23 Approved by: Trini Heath MD, PhD on 09/10/2022 at 13:24
--- NOTE | 2022-09-10 13:11 | ED.CHESTPAIN ---
HPI - Chest Pain General Stated Complaint: chest pain Time Seen by Provider: 09/10/22 13:10 Related Data Home Medications Medication Instructions Recorded Confirmed acetaminophen 325 mg capsule 325 mg PO BID 12/08/19 07/08/22 (Tylenol) cetirizine 10 mg capsule (Zyrtec) 10 mg PO DAILY 12/08/19 07/08/22 vitamin B complex (B 1 tab PO DAILY 12/08/19 07/08/22 Complex-Vitamin B12 tablet) spironolactone 25 mg tablet 25 mg PO DAILY 04/28/20 07/08/22 losartan 50 mg tablet 50 mg PO DAILY 01/03/22 07/08/22 Previous Rx's Medication Instructions Recorded contour test strips #1 ea 01/05/20 lancets #1 ea 01/05/20 metoprolol succinate 100 mg 100 mg PO DAILY #180 tabs 07/18/21 tablet,extended release 24 hr valacyclovir 1 gram tablet 2,000 mg PO BID PRN herpes 09/03/22 outbreak #4 tabs Allergies Allergy/AdvReac Type Severity Reaction Status Date / Time amiodarone Allergy Severe rash Verified 07/08/22 16:37 Patient History Medical History (Updated 07/29/22 @ 09:30 by Caitlin Melissa MA) Anasarca BPH (benign prostatic hyperplasia) Cellulitis Diet-controlled type 2 diabetes mellitus Essential hypertension GERD (gastroesophageal reflux disease) Herpes Herpes simplex with unspecified complication (11/23/04) History of cardioversion (04/2020) Obesity with serious comorbidity (12/09/17) TODD on CPAP Vitamin D deficiency Surgical History History of colonoscopy Family History Mother Heart disease Cancer Stroke Father Stroke Social History marital status: unmarried,single household members: none lives independently: Yes caregiver/support person: No Smoking Status: Former smoker alcohol intake: current substance use type: does not use Smoking Status: Former smoker alcohol intake frequency: 0-2 drinks per day Substance Use Type: marijuana Course Orders Ordered: ED Orders 09/10/22 12:50 XR chest 1V Stat COVID19 -Nasal RAPID/Pre-Proc Stat Complete Blood Count AUTO DIFF Stat Comprehensive Metabolic Panel Stat Lipase Stat Magnesium Stat Partial Thromboplastin Time Stat Prothrombin Time INR Stat Troponin & CK Cardiac Panel Stat EKG-12 Lead Stat Discharge Plan Departure Prescriptions: No Action spironolactone 25 mg tablet 25 mg PO DAILY metoprolol succinate 100 mg tablet extended release 24 hr 100 mg PO DAILY Qty: 180 3RF valacyclovir 1 gram tablet 2,000 mg PO BID PRN (Reason: herpes outbreak) Qty: 4 5RF Rx Instructions: Two tablets every 12 hours for 2 days. Begin at first sign of outbreak. losartan 50 mg tablet 50 mg PO DAILY (DME) contour test strips Qty: 1 3RF Rx Instructions: check blood sugar 1 time daily (DME) lancets Qty: 1 3RF Rx Instructions: check blood sugar 1 time daily vitamin B complex [B Complex-Vitamin B12] Tablet 1 tab PO DAILY acetaminophen [Tylenol] 325 mg Capsule 325 mg PO BID Zyrtec 10 mg Capsule 10 mg PO DAILY Referrals: Tigre Shankar MD [Primary Care Provider] -
--- NOTE | 2022-09-10 13:16 | PC.NURSE ---
2 unsuccessful iv access attempts.
[2022-09-10] MEDS: NITROGLYCERIN 0.4 MG SL TAB SL ×3 (13:27→15:58)
[2022-09-10 13:50] LABS: Add Manual Diff / Slide Review NO; Basophils Absolute Auto 100 /uL (0-100); Basophils Percent Auto 0.9 % (0-2); Eosinophils Absolute Auto 200 /uL (0-450); Eosinophils Percent Auto 3.1 % (2-4); Hematocrit 44.4 % (41-53); Hemoglobin 15.2 g/dL (13.5-17.5); Lymphocytes Absolute Auto 2000 /uL (1100-4500); Mean Corpuscular HGB Conc 34.2 % (30-36); Mean Corpuscular Hemoglobin 33.5 PG (26-34); Mean Corpuscular Volume 97.8 fL (80-100); Monocytes Absolute Auto 900 /uL (0-900); Monocytes Percent Auto 16.6 % (3-14); Neutrophils Absolute Auto 2400 /uL (1500-7000); Neutrophils Percent Auto 43.4 % (50-75); Platelet Count 205 X10^3/uL (150-400); Red Blood Cell Count 4.54 X10^6/uL (4.5-5.9); Red Cell Distribution Width 13.3 % (11.6-14.8); White Blood Cell Count 5.6 X10^3/uL (4.5-11.0)
[2022-09-10 14:02] LABS: INR 1.1 (0.9-1.3); Prothrombin Time 12.4 SECONDS (10.1-12.7)
[2022-09-10 14:05] LABS: PTT Partial Thromboplastin Tim 36 SECONDS (26-36)
[2022-09-10 14:08] LABS: Alanine Aminotransferase 25 IU/L (<50); Albumin 4.3 g/dL (3.5-5.0); Albumin Globulin Ratio 1.2 (1.0-2.8); Alkaline Phosphatase 51 U/L (38-126); Aspartate Aminotransferase 34 IU/L (17-59); BUN Creatinine Ratio 15.1 (6-22); Bilirubin Total 1.3 mg/dL (0.2-1.3); Blood Urea Nitrogen 13 mg/dL (9-20); Carbon Dioxide 22 mmol/L (22-32); Chloride 105 mmol/L (98-107); Creatine Kinase 119 U/L (55-170); Estimated Glomerular Filt Rate > 60 mL/min (>60); Globulin 3.5 g/dL (1.7-4.1); Glucose 96 mg/dL (80-110); HEMOLYSIS 134 (0-50); Lipase 121 U/L (23-300); Potassium 5.1 mmol/L (3.4-5.1); Sodium 138 mmol/L (137-145); Total Protein 7.8 g/dL (6.3-8.2)
--- NOTE | 2022-09-10 14:12 | ED_ITS ---
HPI - Chest Pain General Chief Complaint: Chest Pain Stated Complaint: chest pain Time Seen by Provider: 09/10/22 13:10 Source: patient Mode of arrival: Ambulatory Limitations: no limitations History of Present Illness HPI narrative: Patient is a 67-year-old male history of atrial fibrillation with ablation on Xarelto presenting today with some chest discomfort. He said he was eating lunch he describes centralized chest pressure which he describes as a dull achiness radiating to both arms. Slightly worse with exertion. No prior history of coronary artery disease. He was feeling well earlier this morning. He has no fever nausea or vomiting. Related Data Home Medications Medication Instructions Recorded Confirmed acetaminophen 325 mg capsule 325 mg PO BID 12/08/19 07/08/22 (Tylenol) cetirizine 10 mg capsule (Zyrtec) 10 mg PO DAILY 12/08/19 07/08/22 vitamin B complex (B 1 tab PO DAILY 12/08/19 07/08/22 Complex-Vitamin B12 tablet) spironolactone 25 mg tablet 25 mg PO DAILY 04/28/20 07/08/22 losartan 50 mg tablet 50 mg PO DAILY 01/03/22 07/08/22 Previous Rx's Medication Instructions Recorded contour test strips #1 ea 01/05/20 lancets #1 ea 01/05/20 metoprolol succinate 100 mg 100 mg PO DAILY #180 tabs 07/18/21 tablet,extended release 24 hr valacyclovir 1 gram tablet 2,000 mg PO BID PRN herpes 09/03/22 outbreak #4 tabs Allergies Allergy/AdvReac Type Severity Reaction Status Date / Time amiodarone Allergy Severe rash Verified 07/08/22 16:37 Review of Systems Review of Systems Narrative: GENERAL: Denies chills, fatigue, malaise, fever, sweats, travel HEENT: Denies sinus pain, ear pain, sore throat, difficulty swallowing, neck juarez n RESPIRATORY: Denies dyspnea, cough, wheezing, hemoptysis, sputum. CARDIOVASCULAR: See HPI GASTROINTESTINAL: Denies nausea, vomiting, abdominal pain, diarrhea, constipation, melena. : Denies dysuria, frequency, incontinence, hematuria, urinary retention, flank pain. MUSCULOSKELETAL: Denies weakness, joint pain, or bony pain SKIN: No rash, no erythema, no pruritus NEUROLOGIC: Denies weakness, dizziness, headache, numbness, change in speech, confusion PSYCHIATRIC: No concerning psychosocial issues. 12 point review of systems is negative except for those stated above and HPI Patient History Medical History Anasarca BPH (benign prostatic hyperplasia) Cellulitis Diet-controlled type 2 diabetes mellitus Essential hypertension GERD (gastroesophageal reflux disease) Herpes Herpes simplex with unspecified complication (11/23/04) History of cardioversion (04/2020) Obesity with serious comorbidity (12/09/17) TODD on CPAP Vitamin D deficiency Surgical History History of colonoscopy Family History Mother Heart disease Cancer Stroke Father Stroke Social History marital status: unmarried,single household members: none lives independently: Yes caregiver/support person: No Smoking Status: Former smoker alcohol intake: current substance use type: does not use Smoking Status: Former smoker alcohol intake frequency: 0-2 drinks per day Substance Use Type: marijuana Exam Initial Vital Signs Initial Vital Signs: Vital Signs Pulse Rate 63 09/10/22 13:12 Respiratory Rate 20 09/10/22 13:12 Blood Pressure 160/93 H 09/10/22 13:12 Pulse Oximetry 97 09/10/22 13:12 Oxygen Delivery Method 09/10/22 13:12 GENERAL: Alert pleasant 67-year-old male appears in no acute distress HEENT: Head atraumatic,EOMI, pupils reactive, face symmetric, moist mucous membranes CARDIOVASCULAR: Regular rate and rhythm without murmurs, rubs or gallops. RESPIRATORY: Breath sounds equal bilaterally, no wheezes rales or rhonchi. ABDOMEN: Soft, nontender. Normoactive bowel sounds all 4 quadrants. No guarding or rebound. EXTREMITIES: Normal range of motion, no clubbing or edema. Neurovascularly intact NEUROLOGICAL: Alert and oriented x4.Normal gait and speech. SKIN: Warm, dry, no laceration, no petechiae, no rashes or lesions. Course Orders Ordered: ED Orders 09/10/22 12:50 XR chest 1V Stat EKG-12 Lead Stat 09/10/22 13:31 Complete Blood Count AUTO DIFF Stat Comprehensive Metabolic Panel Stat Lipase Stat Magnesium Stat Partial Thromboplastin Time Stat Prothrombin Time INR Stat Troponin & CK Cardiac Panel Stat 09/10/22 14:34 COVID19 -Nasal RAPID/Pre-Proc Stat 09/10/22 15:40 Trop I [Troponin I] Stat 09/10/22 17:20 Troponin & CK Cardiac Panel Stat 09/10/22 22:45 Partial Thromboplastin Time Q6H 09/10/22 23:03 PTT [Partial Thromboplastin Time] Stat Discontinued Medications Heparin Sodium (Porcine) (Heparin 5,000 Unit/Ml Vial) 5,000 unit IV NOW ONE Stop: 09/10/22 16:42 Last Admin: 09/10/22 16:52 Dose: 5,000 unit Documented By: REID Nitroglycerin (Nitroglycerin) 50 mg in 250 mls @ 1.5 mls/hr IV TITRATE TAWANNA; Protocol Last Titration: 09/10/22 17:47 Dose: 10 mcg/min, 3 mls/hr Documented By: Titration: 09/10/22 17:09 Dose: 10 mcg/min, 3 mls/hr Documented By: Admin: 09/10/22 16:49 Dose: 5 mcg/min, 1.5 mls/hr Documented By: REID Heparin Sodium/Dextrose (Heparin Drip) 25,000 unit in 500 mls @ 20 mls/hr IV CONT TAWANNA; Protocol Last Titration: 09/10/22 17:49 Dose: 1,000 units/hr, 20 mls/hr Documented By: Admin: 09/10/22 17:02 Dose: 1,000 units/hr, 20 mls/hr Documented By: REID Nitroglycerin (Nitroglycerin 0.4 Mg Sl Tab) 0.4 mg SL NOW ONE Stop: 09/10/22 13:15 Last Admin: 09/10/22 13:27 Dose: 0.4 mg Documented By: REID Nitroglycerin (Nitroglycerin 0.4 Mg Sl Tab) 0.4 mg SL [id number] PRN PRN Reason: Chest Pain Last Admin: 09/10/22 15:58 Dose: 0.4 mg Documented By: Admin: 09/10/22 13:51 Dose: 0.4 mg Documented By: AT Vital Signs Vital signs: Vital Signs - 8 hr 09/10/22 13:12 09/10/22 13:27 09/10/22 13:15 Pulse Rate 63 99 H Respiratory Rate 20 17 Blood Pressure 160/93 H 153/98 H Pulse Oximetry 97 Oxygen Delivery Method Room Air 09/10/22 13:17 09/10/22 13:17 09/10/22 13:28 Pulse Rate 99 H Respiratory Rate Blood Pressure 162/108 H 153/98 H Pulse Oximetry 98 Oxygen Delivery Method Room Air 09/10/22 13:28 09/10/22 13:30 09/10/22 13:30 Pulse Rate 102 H 100 H Respiratory Rate Blood Pressure 158/100 H Pulse Oximetry 97 97 Oxygen Delivery Method Room Air Room Air 09/10/22 13:35 09/10/22 13:35 09/10/22 13:51 Pulse Rate 101 H 100 H Respiratory Rate 16 Blood Pressure 129/83 135/89 Pulse Oximetry 93 Oxygen Delivery Method Room Air 09/10/22 13:40 09/10/22 13:40 09/10/22 13:45 Pulse Rate 100 H Respiratory Rate Blood Pressure 126/84 130/84 Pulse Oximetry 97 Oxygen Delivery Method Room Air 09/10/22 13:45 09/10/22 13:50 09/10/22 13:50 Pulse Rate 100 H 100 H Respiratory Rate Blood Pressure 135/89 Pulse Oximetry 96 97 Oxygen Delivery Method 09/10/22 13:55 09/10/22 13:55 09/10/22 14:00 Pulse Rate 101 H Respiratory Rate Blood Pressure 114/77 113/75 Pulse Oximetry 96 Oxygen Delivery Method 09/10/22 14:00 09/10/22 14:05 09/10/22 14:05 Pulse Rate 102 H 100 H Respiratory Rate 11 L Blood Pressure 110/66 Pulse Oximetry 94 96 Oxygen Delivery Method Room Air 09/10/22 14:10 09/10/22 14:10 09/10/22 14:15 Pulse Rate 100 H 99 H Respiratory Rate 16 Blood Pressure 128/88 Pulse Oximetry 96 97 Oxygen Delivery Method Room Air Room Air 09/10/22 14:15 09/10/22 14:20 09/10/22 14:20 Pulse Rate 100 H Respiratory Rate Blood Pressure 121/84 128/86 Pulse Oximetry 93 Oxygen Delivery Method Room Air 09/10/22 14:25 09/10/22 14:25 09/10/22 14:30 Pulse Rate 99 H Respiratory Rate 18 Blood Pressure 127/86 128/85 Pulse Oximetry 96 Oxygen Delivery Method Room Air 09/10/22 14:30 09/10/22 14:35 09/10/22 14:35 Pulse Rate 99 H 99 H Respiratory Rate 16 15 Blood Pressure 128/82 Pulse Oximetry 93 94 Oxygen Delivery Method Room Air Room Air 09/10/22 14:40 09/10/22 14:40 09/10/22 14:45 Pulse Rate 98 H Respiratory Rate 12 Blood Pressure 131/85 140/87 Pulse Oximetry 95 Oxygen Delivery Method Room Air 09/10/22 14:45 09/10/22 14:50 09/10/22 14:50 Pulse Rate 99 H 99 H Respiratory Rate 15 23 Blood Pressure 140/89 Pulse Oximetry 94 Oxygen Delivery Method Room Air 09/10/22 15:00 09/10/22 15:01 09/10/22 15:01 Pulse Rate 100 H 99 H Respiratory Rate 21 16 Blood Pressure 142/94 H Pulse Oximetry 94 95 Oxygen Delivery Method Room Air Room Air 09/10/22 15:30 09/10/22 15:30 09/10/22 15:58 Pulse Rate 100 H 100 H Respiratory Rate 15 Blood Pressure 149/97 H 155/105 H Pulse Oximetry 96 Oxygen Delivery Method Room Air 09/10/22 15:58 09/10/22 15:58 09/10/22 16:00 Pulse Rate 100 H Respiratory Rate 14 Blood Pressure 155/105 H 147/97 H Pulse Oximetry 96 Oxygen Delivery Method Room Air 09/10/22 16:00 09/10/22 16:04 09/10/22 16:04 Pulse Rate 100 H 101 H Respiratory Rate 14 16 Blood Pressure 146/79 H Pulse Oximetry 96 94 Oxygen Delivery Method Room Air Room Air 09/10/22 16:05 09/10/22 16:05 09/10/22 16:10 Pulse Rate 103 H Respiratory Rate 14 Blood Pressure 124/76 127/81 Pulse Oximetry 93 Oxygen Delivery Method Room Air 09/10/22 16:10 09/10/22 16:30 09/10/22 16:34 Pulse Rate 102 H 100 H 101 H Respiratory Rate 13 20 Blood Pressure Pulse Oximetry 95 95 94 Oxygen Delivery Method Room Air Room Air Room Air 09/10/22 16:34 09/10/22 16:41 09/10/22 16:41 Pulse Rate 101 H Respiratory Rate 16 Blood Pressure 115/79 130/80 Pulse Oximetry 95 Oxygen Delivery Method Room Air 09/10/22 16:51 09/10/22 16:51 09/10/22 16:54 Pulse Rate 101 H Respiratory Rate 19 Blood Pressure 132/79 148/69 H Pulse Oximetry 95 Oxygen Delivery Method Room Air 09/10/22 16:54 09/10/22 16:57 09/10/22 16:57 Pulse Rate 102 H 102 H Respiratory Rate 15 13 Blood Pressure 142/66 H Pulse Oximetry 96 96 Oxygen Delivery Method Room Air Room Air 09/10/22 17:00 09/10/22 17:00 09/10/22 17:04 Pulse Rate 101 H 103 H Respiratory Rate 14 16 Blood Pressure 140/73 Pulse Oximetry 95 96 Oxygen Delivery Method Room Air Room Air 09/10/22 17:04 09/10/22 17:06 09/10/22 17:06 Pulse Rate 103 H Respiratory Rate 12 Blood Pressure 143/93 H 141/94 H Pulse Oximetry 96 Oxygen Delivery Method Room Air 09/10/22 17:09 09/10/22 17:09 09/10/22 17:12 Pulse Rate 103 H Respiratory Rate 14 Blood Pressure 135/92 H 130/95 H Pulse Oximetry 97 Oxygen Delivery Method Room Air 09/10/22 17:12 09/10/22 17:15 09/10/22 17:15 Pulse Rate 104 H 104 H Respiratory Rate 16 15 Blood Pressure 135/97 H Pulse Oximetry 97 95 Oxygen Delivery Method Room Air Room Air 09/10/22 17:18 09/10/22 17:18 09/10/22 17:21 Pulse Rate 104 H Respiratory Rate 12 Blood Pressure 134/94 H 135/85 Pulse Oximetry 95 Oxygen Delivery Method Room Air 09/10/22 17:21 09/10/22 17:28 09/10/22 17:28 Pulse Rate 104 H 106 H Respiratory Rate 14 22 Blood Pressure 134/90 Pulse Oximetry 95 95 Oxygen Delivery Method Room Air Room Air 09/10/22 17:30 09/10/22 17:30 09/10/22 17:33 Pulse Rate 106 H Respiratory Rate 23 Blood Pressure 131/86 121/81 Pulse Oximetry 96 Oxygen Delivery Method Room Air 09/10/22 17:33 Pulse Rate 106 H Respiratory Rate 28 H Blood Pressure Pulse Oximetry 96 Oxygen Delivery Method Room Air MDM - Chest Pain Lab Data Result diagrams: 09/10/22 13:31 09/10/22 13:31 Labs: Lab Results 09/10/22 09/10/22 09/10/22 Range/Units 13:31 13:31 13:31 WBC 5.6 (4.5-11.0) X10^3/uL RBC 4.54 (4.5-5.9) X10^6/uL Hgb 15.2 (13.5-17.5) g/dL Hct 44.4 (41-53) % MCV 97.8 (80-100) fL MCH 33.5 (26-34) PG MCHC 34.2 (30-36) % RDW 13.3 (11.6-14.8) % Plt Count 205 (150-400) X10^3/uL Neut % (Auto) 43.4 L (50-75) % Lymph % (Auto) 36.0 (25-40) % Stephens % (Auto) 16.6 H (3-14) % Eos % (Auto) 3.1 (2-4) % Baso % (Auto) 0.9 (0-2) % Neut # (Auto) 2400 (9662-8715) /uL Lymph # (Auto) 2000 (8674-4045) /uL Stephens # (Auto) 900 (0-900) /uL Eos # (Auto) 200 (0-450) /uL Baso # (Auto) 100 (0-100) /uL PT 12.4 (10.1-12.7) SECONDS INR 1.1 (0.9-1.3) APTT 36 (26-36) SECONDS Sodium 138 (137-145) mmol/L Potassium 5.1 (3.4-5.1) mmol/L Chloride 105 (98-107) mmol/L Carbon Dioxide 22 (22-32) mmol/L BUN 13 (9-20) mg/dL Creatinine 0.86 (0.66-1.25) mg/dL Estimated GFR > 60 (>60) mL/min BUN/Creatinine Ratio 15.1 (6-22) Glucose 96 (80-110) mg/dL Calcium 9.0 (8.4-10.2) mg/dL Magnesium 2.0 (1.6-2.3) mg/dL Total Bilirubin 1.3 (0.2-1.3) mg/dL AST 34 (17-59) IU/L ALT 25 (<50) IU/L Alkaline Phosphatase 51 (38-126) U/L Total Creatine Kinase 119 (55-170) U/L CK-MB (CK-2) 1.50 (<2.37) ng/mL CK-MB (CK-2) Rel Index 1.3 L (1.5-5.0) % Troponin I 0.016 (0.01-0.034) ng/mL Total Protein 7.8 (6.3-8.2) g/dL Albumin 4.3 (3.5-5.0) g/dL Globulin 3.5 (1.7-4.1) g/dL Albumin/Globulin Ratio 1.2 (1.0-2.8) Lipase 121 (23-300) U/L SARS-CoV-2 (PCR) (Negative) 09/10/22 09/10/22 09/10/22 Range/Units 14:34 15:40 17:20 WBC (4.5-11.0) X10^3/uL RBC (4.5-5.9) X10^6/uL Hgb (13.5-17.5) g/dL Hct (41-53) % MCV (80-100) fL MCH (26-34) PG MCHC (30-36) % RDW (11.6-14.8) % Plt Count (150-400) X10^3/uL Neut % (Auto) (50-75) % Lymph % (Auto) (25-40) % Stephens % (Auto) (3-14) % Eos % (Auto) (2-4) % Baso % (Auto) (0-2) % Neut # (Auto) (3663-8358) /uL Lymph # (Auto) (3583-8726) /uL Stephens # (Auto) (0-900) /uL Eos # (Auto) (0-450) /uL Baso # (Auto) (0-100) /uL PT (10.1-12.7) SECONDS INR (0.9-1.3) APTT (26-36) SECONDS Sodium (137-145) mmol/L Potassium (3.4-5.1) mmol/L Chloride (98-107) mmol/L Carbon Dioxide (22-32) mmol/L BUN (9-20) mg/dL Creatinine (0.66-1.25) mg/dL Estimated GFR (>60) mL/min BUN/Creatinine Ratio (6-22) Glucose (80-110) mg/dL Calcium (8.4-10.2) mg/dL Magnesium (1.6-2.3) mg/dL Total Bilirubin (0.2-1.3) mg/dL AST (17-59) IU/L ALT (<50) IU/L Alkaline Phosphatase (38-126) U/L Total Creatine Kinase 122 (55-170) U/L CK-MB (CK-2) 3.90 H D (<2.37) ng/mL CK-MB (CK-2) Rel Index 3.2 (1.5-5.0) % Troponin I 0.028 0.135 H* (0.01-0.034) ng/mL Total Protein (6.3-8.2) g/dL Albumin (3.5-5.0) g/dL Globulin (1.7-4.1) g/dL Albumin/Globulin Ratio (1.0-2.8) Lipase (23-300) U/L SARS-CoV-2 (PCR) Negative (Negative) Imaging Data Chest x-ray: Radiologist's Impression: XRay Report Signed Patient: Theodore Kirkland MR#: [id number] : 1955 Acct:[id number] Age/Sex: 67 / M Date of Service: 09/10/22 Loc: ED Accession Number: [id number] ?? Procedure: XR chest 1V Ordering Provider: Nelly Field D.O. PROCEDURE:? XR CHEST 1V ? INDICATIONS:? chest pain ? TECHNIQUE:? One view of the chest was acquired.? ? COMPARISON:? [facility], CAROLYN, XR CHEST 1V, 12/08/2019, 16:19. ? FINDINGS:? ? Surgical changes and devices:? None.? ? Lungs and pleura:? Focal opacity noted in the left lung base involving the left costophrenic angle.? No pleural effusions or pneumothorax.? ? Mediastinum:? Mediastinal contours appear normal.? Heart is enlarged. ? Bones and chest wall:? No suspicious bony lesions.? Overlying soft tissues appear unremarkable.? ? IMPRESSION:? Left basilar focal opacity concerning for atelectasis or pneumonia.? Recommend follow-up chest x-ray in 30 days to exclude underlying neoplastic process.? ? ? Dictated by: Trini Heath MD, PhD on 09/10/2022 at 13:23 ? ? ECG Data Interpretation: Normal sinus rhythm rate 65 CT interval 204 QRS 156 QTC 426 right bundle-branch block noted new from previous EKG no ST changes EKG 2. Sinus rhythm lead [address]-elevation low voltage in lead [address] depression EKG 3. Sinus rhythm ST elevation V3 possibly V4 no ST depression possible ST elevation in lead 3 and AVF as well EKG 4. ST elevation noted in V3 has resolved but is persistent in V4 EKG 5. Persistent ST elevation V3 V4 without ST depression EKG 5. The same MDM Narrative Medical decision making narrative: Patient's symptoms are certainly concerning with a dull achy chest pain radiating to both arms. Initial EKG was within normal limits and a negative troponin. In fact he has 2- troponins. He intermittently is having some chest discomfort. He received nitroglycerin sublingually and it resolved his pain. Chest pain continues to come and go in the ED relieved with nitroglycerin started on a nitroglycerin drip. EKGs do show persistent ST elevation V3 and V4. Dr. London while initially consulted in regards to EKG 3. On EKG number for the ST elevation in V4 seems to resolve. However there is concern for intermittent blockage. Dr. London while recommended transferring for STEMI. Initially were told that [facility] divert for STEMI. However I did talk with [facility] interventionalist , who kindly accepts patient and will take patient straight to the laboratory phlebotomist. Dr. Arnulfo Hankins ED physician accepts patient Critical Care Time Critical Care Time Critical Care Time: Yes Total Critical Care Time: 45 Attestation: The high probability of a clinically significant, sudden or life threatening deterioration of the [cardiovascular] system(s) required my full and direct attention, intervention and personal management. The aggregate critical care t netta was [45] minutes. This time is in addition to time spent performing reported procedures but includes the following: [x] Data Review and interpretation [x] Patient assessment and monitoring of vital signs [x] Documentation [x] Medication orders and management Discharge Plan [facility]: ST elevation (STEMI) myocardial infarction Prescriptions: No Action spironolactone 25 mg tablet 25 mg PO DAILY metoprolol succinate 100 mg tablet extended release 24 hr 100 mg PO DAILY Qty: 180 3RF valacyclovir 1 gram tablet 2,000 mg PO BID PRN (Reason: herpes outbreak) Qty: 4 5RF Rx Instructions: Two tablets every 12 hours for 2 days. Begin at first sign of outbreak. losartan 50 mg tablet 50 mg PO DAILY (DME) contour test strips Qty: 1 3RF Rx Instructions: check blood sugar 1 time daily (DME) lancets Qty: 1 3RF Rx Instructions: check blood sugar 1 time daily vitamin B complex [B Complex-Vitamin B12] Tablet 1 tab PO DAILY acetaminophen [Tylenol] 325 mg Capsule 325 mg PO BID Zyrtec 10 mg Capsule 10 mg PO DAILY Referrals: Tigre Shankar MD [Primary Care Provider] -
[2022-09-10 14:18] LABS: Troponin I 0.016 ng/mL (0.01-0.034)
[2022-09-10 14:23] LABS: CKMB % Relative Index 1.3 % (1.5-5.0)
[2022-09-10 15:29] LABS: COVID19 -Nasal RAPID Negative (Negative)
--- NOTE | 2022-09-10 15:54 | PC.NURSE ---
Pt reports chest pain returning, at this time a 1/10 dull aching in left side of chest. Dr. Field notified. EKG being repeated at bedside.
[2022-09-10 16:14] LABS: Troponin I 0.028 ng/mL (0.01-0.034)
[2022-09-10] MEDS: NITROGLYCERIN 50 MG/250 ML INFUS..BTL IV (16:49)
[2022-09-10] MEDS: HEPARIN 5,000 UNIT/ML VIAL 5000 UNIT IV (16:52)
[2022-09-10] MEDS: HEPARIN DRIP 25,000 UNIT/500 ML IV.SOLN 20 UNIT IV (17:02)
[2022-09-10 17:37] LABS: Creatine Kinase 122 U/L (55-170)
--- NOTE | 2022-09-10 17:43 | PC.NURSE ---
Addendum entered by Mercedes Ronquillo R.N. 09/10/22 17:50: Heparin infusion and nitroglycerin infusion continued with ALS transport at the time of discharge. Original Note: Report given to ALS transport Osvaldo clinical sales consultant with [facility] department transporting patient to [facility]. This nurse also called [facility] and gave report to Zahira ESTRADA.
[2022-09-10 17:52] LABS: CKMB % Relative Index 3.2 % (1.5-5.0)
[2022-09-10 18:18] LABS: Troponin I 0.135 ng/mL (0.01-0.034)
== END 2022-09-10 17:50 | disposition short-term general hospital (02) ==
PROVIDERS: Emergency Provider Emergency Medicine; PCP Student in an Organized Health Care Education/Training Program
DX: I21.3 ST elevation (STEMI) myocardial infarction of unspecified site (principal); I10 Essential (primary) hypertension; Z20.822 Contact with and (suspected) exposure to COVID-19; Z87.891 Personal history of nicotine dependence
CPT/HCPCS: 36415; 71045; 80053; 82550; 82553; 83690; 83735; 84484; 85025; 85610; 85730; 87635; 93005; 93010; 96365; 96368; 96376; 99284; 99291; C9803; J1644

== ENCOUNTER → 2023-12-17 07:27 | Outpatient (CLI) | payer OTHER, SELFPAY ==
[2020-08-02 10:06] VITALS: BMI 47.0
[2023-12-17 08:45] LABS: Add Manual Diff / Slide Review NO; Basophils Absolute Auto 0 /uL (0-100); Basophils Percent Auto 0.8 % (0-2); Eosinophils Absolute Auto 100 /uL (0-450); Eosinophils Percent Auto 3.1 % (2-4); Hematocrit 45.3 % (41-53); Hemoglobin 15.5 g/dL (13.5-17.5); Lymphocytes Absolute Auto 1700 /uL (1100-4500); Lymphocytes Percent Auto 36.5 % (25-40); Mean Corpuscular HGB Conc 34.2 % (30-36); Mean Corpuscular Hemoglobin 33.8 PG (26-34); Mean Corpuscular Volume 98.9 fL (80-100); Monocytes Absolute Auto 700 /uL (0-900); Monocytes Percent Auto 15.2 % (3-14); Neutrophils Absolute Auto 2100 /uL (1500-7000); Neutrophils Percent Auto 44.4 % (50-75); Platelet Count 179 X10^3/uL (150-400); Red Blood Cell Count 4.58 X10^6/uL (4.5-5.9); Red Cell Distribution Width 13.7 % (11.6-14.8); White Blood Cell Count 4.8 X10^3/uL (4.5-11.0)
[2023-12-17 08:55] LABS: Hemoglobin A1C% w Est Avg Glu 5.9 % (4.0-6.0)
[2023-12-17 09:11] LABS: Alanine Aminotransferase 23 IU/L (<50); Albumin Globulin Ratio 1.3 (1.0-2.8); Alkaline Phosphatase 60 U/L (38-126); Aspartate Aminotransferase 20 IU/L (17-59); BUN Creatinine Ratio 19.3 (6-22); Bilirubin Total 0.9 mg/dL (0.2-1.3); Blood Urea Nitrogen 16 mg/dL (9-20); Carbon Dioxide 25 mmol/L (22-32); Chloride 112 mmol/L (98-107); Cholesterol 136 mg/dL (140-199); Estimated Glomerular Filt Rate > 60 mL/min (>60); Glucose 118 mg/dL (80-110); HDL Cholesterol 39 mg/dL (40-60); HEMOLYSIS < 15 (0-50); LDL Cholesterol Calculated 76 mg/dL (<100); Potassium 4.3 mmol/L (3.4-5.1); Sodium 142 mmol/L (137-145); Triglycerides 104 mg/dL (35-150)
[2023-12-17 09:32] LABS: Prostate Specific Antigen Scrn 0.914 ng/mL (0.1-4.0)
[2023-12-17 09:54] LABS: Hep C Virus Ab w/Reflex Quant NEGATIVE s/c (NEGATIVE)
== END ==
PROVIDERS: PCP Family Medicine; Referring Provider Family Medicine; Visit Provider Family Medicine
DX: I10 Essential (primary) hypertension (principal); R73.01 Impaired fasting glucose; Z12.5 Encounter for screening for malignant neoplasm of prostate; Z00.00 Encounter for general adult medical examination without abnormal findings; I48.91 Unspecified atrial fibrillation; I50.20 Unspecified systolic (congestive) heart failure
CPT/HCPCS: 36415; 80053; 80061; 83036; 85025; 86803; G0103

== ENCOUNTER → 2024-01-13 08:42 | Outpatient (CLI) | payer OTHER, SELFPAY ==
[2020-08-02 10:06] VITALS: BMI 47.0
--- NOTE | 2024-01-13 08:43 | DI.US.S_ITS ---
PROCEDURE: US ABD AORTA ANEURYSM SCREEN INDICATIONS: AAA SCREENING TECHNIQUE: Real time scanning was performed of the aorta and iliac arteries, with image documentation. COMPARISON: None. FINDINGS: Aorta: Proximal aortic diameter measures 2.8 cm. Mid-aorta measures 1.9 cm. Distal aortic diameter is 2 cm. Iliac arteries: Right common iliac artery measures 1.4 cm. Left common iliac artery measures 1.3 cm. IMPRESSION: 1. No abdominal aortic aneurysm. Proximal abdominal aorta ectasia measuring 2.8 cm. Recommend repeat imaging in 5 years. 2. Bilateral common iliac arteries are normal in caliber where visualized. Vascular incidental findings followup recommendations: ACR White Paper AAA imaging followup intervals: AAA defined as 3.0 cm or more luminal diameter. * 2.5-2.9 cm (ectasia): 5 year followup. * 3.0-3.4 cm: 3 year followup. * 3.5-3.9 cm: 3 year followup. * 4.0-4.4 cm: 1 year followup. * 4.5-4.9 cm: 6 month followup. Consider surgery/endovascular Rx. * 5.0-5.5 cm: 3-6 month followup. Consider surgery/endovascular Rx. Dictated by: Antolin Garcia M.D. on 01/13/2024 at 9:41 Approved by: Antolin Garcia M.D. on 01/13/2024 at 9:42
== END ==
LOC: US 08:43
PROVIDERS: PCP Family Medicine; Referring Provider Family Medicine; Visit Provider Family Medicine
DX: Z13.6 Encounter for screening for cardiovascular disorders (principal); I77.811 Abdominal aortic ectasia
CPT/HCPCS: 76706

== ENCOUNTER 2024-03-25 06:29 | Day surgery (SDC) | payer OTHER, SELFPAY ==
[2020-08-02 10:06] VITALS: BMI 47.0
--- NOTE | 2024-03-25 | PATH_ITS ---
[facility] Accession Number: [id number] No. of containers..04 Tissue . 01 Material submitted: . PART A: cecum - CECAL POLYP PART B: colon - TRANSVERSE POLYP PART C: colon - DESCENDING POLYP PART D: sigmoid colon - SIGMOID POLYPS . 01 Diagnosis: A. CECUM, POLYP: Tubular adenoma. . B. TRANSVERSE COLON, POLYP: Tubular adenoma. . C. DESCENDING COLON, POLYP: Tubular adenoma. . D. SIGMOID COLON, POLYPS: Tubular adenoma in 2 of 3 fragments. Benign lymphoid aggregate, 1 fragment. Additional levels were examined. [facility] 03/29/2024 1516 Local . 01 Electronically signed: . Gabby Coffey MD, Pathologist NPI- [id number] . 01 Gross description: . A. Received in formalin with two patient identifiers and cecal polyp, is a single rod soft tissue fragment, 0.4 cm in greatest dimension. Submitted in A1. B. Received in formalin with two patient identifiers and transverse polyp, is a single rod soft tissue fragment, 1.5 cm in greatest dimension. Submitted in B1. C. Received in formalin with two patient identifiers and descending polyp, is a single rod soft tissue fragment, 0.4 cm in greatest dimension. Submitted in C1. D. Received in formalin with two patient identifiers and sigmoid polyp, are multiple rod to yellow soft tissue fragments aggregating to 2.1 x 0.6 x 0.3 cm. Filtered and submitted in D1. ([id number]) /MRV 03/26/2024 1456 Local . 01 Pathologist provided ICD-10: D12.0, D12.3, D12.4 . 01 CPT . 039593, 660601, 999838, 477990 Specimen Comment: A courtesy copy of this report has been sent to [phone] Performed at: [facility] [address] [place] [address], [place], [place] [id number] MD Hima Ferrera MD Phone: [phone]
[2024-03-25 07:19] VITALS: BP 123/84; PULSE 100; RESP 16; TEMP 36.5; O2SAT 96; BMI 35.9
[2024-03-25 07:28] VITALS: BMI 35.9
[2024-03-25] MEDS: LACTATED RINGERS 1,000 ML 42 ML IV (07:28)
--- NOTE | 2024-03-25 07:29 | PM.HP.1 ---
History of Present Illness History of Present Illness Date Patient Seen: 03/25/24 Time Patient Seen: 07:29 Chief complaint: [facility] [place] Narrative: Liam is a 68 year old man who presents for colonoscopy. See the office note from December for details. He continues to complain of irritation and pain around his anus. He continues to have rectal bleeding. [facility] Medical History (Updated 01/13/24 @ 20:29 by Jose Branham DO) Venous insufficiency of both lower extremities Encounter for subsequent annual wellness visit (AWV) in Medicare patient Morbid obesity due to excess calories IFG (impaired fasting glucose) Diet-controlled type 2 diabetes mellitus TODD on CPAP History of cardioversion (04/2020) Essential hypertension Anasarca Cellulitis Vitamin D deficiency Herpes simplex with unspecified complication (11/23/04) Herpes BPH (benign prostatic hyperplasia) GERD (gastroesophageal reflux disease) Obesity with serious comorbidity (12/09/17) Surgical History History of colonoscopy Family History Mother Heart disease Cancer Stroke Father Stroke Social History marital status: unmarried,single household members: none lives independently: Yes caregiver/support person: No Smoking Status: Former smoker alcohol intake: current substance use type: does not use Meds Home Medications and Allergies Home Medications Medication Instructions Recorded Confirmed Type acetaminophen 325 mg capsule 325 mg PO BID 12/08/19 01/02/24 History (Tylenol) cetirizine 10 mg capsule (Zyrtec) 10 mg PO DAILY 12/08/19 01/02/24 History vitamin B complex (B 1 tab PO DAILY 12/08/19 01/02/24 History Complex-Vitamin B12 tablet) contour test strips #1 ea 01/05/20 01/02/24 Rx lancets #1 ea 01/05/20 01/02/24 Rx valacyclovir 1 gram tablet 2,000 mg (2 x 1 gram) PO BID PRN 09/03/22 01/02/24 Rx herpes outbreak #4 tabs rivaroxaban 20 mg tablet 20 mg PO DAILY #90 tabs 06/03/23 01/02/24 Rx atorvastatin 10 mg tablet 10 mg PO DAILY #90 tabs 01/02/24 01/02/24 Rx losartan 50 mg tablet 50 mg PO DAILY #90 tabs 01/02/24 01/02/24 Rx metoprolol succinate 100 mg 100 mg PO DAILY #90 tabs 01/02/24 01/02/24 Rx tablet,extended release 24 hr semaglutide 0.25 mg or 0.5 mg (2 0.25 mg (0.368 mL) SUBCUT QWEEK #3 01/02/24 01/02/24 Rx mg/3 mL) subcutaneous pen injector mL (Ozempic) spironolactone 25 mg tablet 25 mg PO DAILY #90 tabs 01/02/24 01/02/24 Rx sodium,potassium,mag sulfates 17.5 See Rx Instructions PO .COMPLEX 02/09/24 Rx gram-3.13 gram-1.6 gram oral soln #354 mL (Suprep Bowel Prep Kit) Allergies Allergy/AdvReac Type Severity Reaction Status Date / Time amiodarone Allergy Severe rash Verified 01/02/24 15:47 Exam Vital Signs (past 8 hours): - 03/25/24 07:19 Temperature 97.7 F Pulse Rate 100 H Respiratory Rate 16 Blood Pressure 123/84 Pulse Oximetry 96 Oxygen Delivery Method Room Air Oxygen Delivery Method Room Air Const General: No acute distress Resp Effort & Inspection: normal respiratory effort Assessment & Plan Assessment and plan (1) Rectal bleeding: Status: Acute Plan We will proceed with a colonoscopy in pain particular attention to the area around his anus on exam. He would like to proceed.
--- NOTE | 2024-03-25 08:24 | PM.OP.COLON ---
Operative Date/Time/Diagnoses Date of procedure: 03/25/24 Time of procedure: 08:24 Pre-op diagnosis: Rectal bleeding Post-op diagnosis: same Procedure & Clinicians Study performed: Colonoscopy Same procedure as scheduled: Yes Surgeon: Douglas Miller Procedure Notes Procedure in detail: Surgeon: Douglas Miller MD Anesthesia: Linda Briones MD Procedure: The patient was brought to the endoscopy suite, placed in left lateral decubitus position. The patient was connected to monitoring devices. A time-out was performed. Sedation was administered. Once the patient was adequately sedated, a digital rectal exam was performed and was normal. One external skin tag was seen. The scope was then inserted and advanced to the cecum where the appendiceal orifice was identified and photographed. The scope was then slowly withdrawn over greater than 6 minutes. The mucosa was thoroughly inspected. There was a 2 mm polyp in the cecum removed with a cold forceps. There was a 5 mm polyp in the transverse colon removed with cold snare. There was a 5 mm polyp in the descending colon removed with a cold snare. There was a 3 mm polyp in the sigmoid colon removed with a cold forceps and a 7 mm polyp in the sigmoid colon removed with a cold snare. The scope was retroflexed in the rectum. Mild internal hemorrhoids were noted. The scope was straightened and removed. The patient was awakened and brought to recovery. Scope withdrawal time: 21 minutes Sedation time: 28 minutes EBL: 5 mL Findings: A 2 mm polyp in the cecum, a 5 mm polyp in the transverse colon, a 5 mm polyp in the descending colon, a 3 mm polyp in the sigmoid colon and a 7 mm polyp in the sigmoid colon Post-procedure Disposition: PACU
[2024-03-25 08:26] VITALS: BP 89/59; PULSE 104; RESP 93; TEMP 36.3; O2SAT 10
[2024-03-25 08:31] VITALS: BP 85/51; PULSE 94; RESP 16; O2SAT 93
[2024-03-25 08:36] VITALS: BP 91/63; PULSE 101; RESP 18; O2SAT 92
[2024-03-25 08:41] VITALS: BP 101/71; PULSE 82; RESP 14; TEMP 36.6; O2SAT 94
[2024-03-25 08:43] VITALS: BP 103/65; PULSE 95; RESP 18; TEMP 36.3; O2SAT 94
== END 2024-03-25 09:03 | disposition home or self-care (01) ==
PROVIDERS: PCP Family Medicine; Referring Provider Surgery; Visit Provider Surgery
PROC: 0DJD8ZZ Inspection of Lower Intestinal Tract, Via Natural or Artificial Opening Endoscopic (ICD-10-PCS; CPT 45378; principal; 2024-03-25 07:45)
DX: K62.5 Hemorrhage of anus and rectum (principal); D12.0 Benign neoplasm of cecum; D12.3 Benign neoplasm of transverse colon; D12.4 Benign neoplasm of descending colon; D12.5 Benign neoplasm of sigmoid colon
CPT/HCPCS: 45385; 45380; J2704

== ENCOUNTER → 2024-04-02 15:40 | Outpatient (CLI) | payer OTHER, SELFPAY ==
[2020-08-02 10:06] VITALS: BMI 47.0
[2024-04-02 16:17] LABS: Hemoglobin A1C% w Est Avg Glu 5.8 % (4.0-6.0)
== END ==
PROVIDERS: PCP Family Medicine; Referring Provider Family Medicine; Visit Provider Family Medicine
DX: R73.01 Impaired fasting glucose (principal); E66.01 Morbid (severe) obesity due to excess calories
CPT/HCPCS: 83036

== ENCOUNTER → 2024-10-01 15:28 | Outpatient (CLI) | payer MEDICARE, SELFPAY ==
[2020-08-02 10:06] VITALS: BMI 47.0
[2024-10-01 16:17] LABS: Add Manual Diff / Slide Review NO; Basophils Absolute Auto 0 /uL (0-100); Basophils Percent Auto 0.9 % (0-2); Eosinophils Absolute Auto 100 /uL (0-450); Eosinophils Percent Auto 2.5 % (2-4); Hematocrit 45.6 % (41-53); Hemoglobin 15.4 g/dL (13.5-17.5); Lymphocytes Absolute Auto 1900 /uL (1100-4500); Lymphocytes Percent Auto 34.7 % (25-40); Mean Corpuscular HGB Conc 33.8 % (30-36); Mean Corpuscular Hemoglobin 33.7 PG (26-34); Mean Corpuscular Volume 99.9 fL (80-100); Monocytes Absolute Auto 700 /uL (0-900); Monocytes Percent Auto 13.4 % (3-14); Neutrophils Absolute Auto 2700 /uL (1500-7000); Neutrophils Percent Auto 48.5 % (50-75); Platelet Count 188 X10^3/uL (150-400); Red Blood Cell Count 4.56 X10^6/uL (4.5-5.9); Red Cell Distribution Width 13.6 % (11.6-14.8); White Blood Cell Count 5.5 X10^3/uL (4.5-11.0)
[2024-10-01 16:23] LABS: Appearance Urine UA CLEAR; Bilirubin Urine UA NEGATIVE (NEGATIVE); Color Urine UA YELLOW; Glucose Urine UA NEGATIVE (Negative); Ketones Urine UA TRACE (NEGATIVE); Leukocyte Esterase Urine UA NEGATIVE (NEGATIVE); Nitrite Urine UA NEGATIVE (Negative); Occult Blood Urine UA NEGATIVE (Negative); Protein Urine UA NEGATIVE (Negative); Specific Gravity Urine UA 1.025 (1.000-1.035); Urobilinogen Urine UA 0.2 E.U./dL (0.2)
[2024-10-01 16:26] LABS: INR 1.7 (0.9-1.3); Prothrombin Time 18.6 SECONDS (9.4-12.5)
[2024-10-01 16:29] LABS: Bacteria Urine Occasional (0-1); Culture Indicated Urine Cult Not Indicated; RBC Urine 0-1/HPF (0-5/HPF); Squamous Epithelial Cell Urine 0-1 /HPF (0-5/HPF); Urine Volume 10mL (spun); WBC Urine 0-1/HPF (0-5/HPF)
[2024-10-01 16:31] LABS: HEMOLYSIS < 15 (0-50); Iron 127 ug/dL (49-181)
[2024-10-01 16:32] LABS: Alanine Aminotransferase 26 IU/L (<50); Albumin 3.8 g/dL (3.5-5.0); Albumin Globulin Ratio 1.4 (1.0-2.8); Alkaline Phosphatase 56 U/L (38-126); Aspartate Aminotransferase 21 IU/L (17-59); BUN Creatinine Ratio 17.2 (6-22); Bilirubin Total 0.8 mg/dL (0.2-1.3); Blood Urea Nitrogen 17 mg/dL (9-20); Calcium 9.3 mg/dL (8.4-10.2); Carbon Dioxide 28 mmol/L (22-32); Chloride 107 mmol/L (98-107); Estimated Glomerular Filt Rate > 60 mL/min (>60); Globulin 2.8 g/dL (1.7-4.1); Glucose 103 mg/dL (80-110); HEMOLYSIS < 15 (0-50); Potassium 4.7 mmol/L (3.4-5.1); Sodium 139 mmol/L (137-145); Total Protein 6.6 g/dL (6.3-8.2)
[2024-10-01 16:33] LABS: Hemoglobin A1C% w Est Avg Glu 5.8 % (4.0-6.0)
[2024-10-01 16:42] LABS: Percent Iron Saturation 42 % (20-50); Total Iron Binding Capacity 303 ug/dL (261-462); Transferrin 266 mg/dL (206-381)
== END ==
LOC: LAB 15:31
PROVIDERS: PCP Family Medicine; Referring Provider Family Medicine; Visit Provider Family Medicine
DX: I11.0 Hypertensive heart disease with heart failure (principal); I50.20 Unspecified systolic (congestive) heart failure; I48.91 Unspecified atrial fibrillation; Z01.818 Encounter for other preprocedural examination; R73.01 Impaired fasting glucose; E66.01 Morbid (severe) obesity due to excess calories
CPT/HCPCS: 36415; 80053; 81001; 83036; 83540; 83550; 85025; 85610; 86850; 86900; 86901

== ENCOUNTER → 2025-01-07 10:58 | Outpatient (CLI) | payer MEDICARE, SELFPAY ==
[2020-08-02 10:06] VITALS: BMI 47.0
[2025-01-07 12:29] LABS: BUN Creatinine Ratio 24.7 (6-22); Blood Urea Nitrogen 22 mg/dL (9-20); Calcium 9.5 mg/dL (8.4-10.2); Carbon Dioxide 24 mmol/L (22-32); Chloride 106 mmol/L (98-107); Cholesterol 175 mg/dL (140-199); Estimated Glomerular Filt Rate > 60 mL/min (>60); Glucose 106 mg/dL (80-110); HDL Cholesterol 54 mg/dL (40-60); HEMOLYSIS 17 (0-50); Hemoglobin A1C% w Est Avg Glu 5.6 % (4.0-6.0); LDL Cholesterol Calculated 102 mg/dL (<100); Potassium 4.8 mmol/L (3.4-5.1); Sodium 139 mmol/L (137-145); Triglycerides 95 mg/dL (35-150)
== END ==
PROVIDERS: PCP Family Medicine; Referring Provider Family Medicine; Visit Provider Family Medicine
DX: Z00.00 Encounter for general adult medical examination without abnormal findings (principal); R73.01 Impaired fasting glucose; E78.2 Mixed hyperlipidemia; E66.01 Morbid (severe) obesity due to excess calories; I48.91 Unspecified atrial fibrillation; I10 Essential (primary) hypertension
CPT/HCPCS: 36415; 80048; 80061; 83036

== ENCOUNTER → 2025-04-26 09:12 | Outpatient (CLI) | payer MEDICARE, SELFPAY ==
[2020-08-02 10:06] VITALS: BMI 47.0
[2025-04-26 10:17] LABS: Blood Urea Nitrogen 15 mg/dL (9-20); Calcium 9.0 mg/dL (8.4-10.2); Carbon Dioxide 21 mmol/L (22-32); Chloride 110 mmol/L (98-107); Estimated Glomerular Filt Rate > 60 mL/min (>60); Glucose 114 mg/dL (70-99); HEMOLYSIS < 15 (0-50); Potassium 4.4 mmol/L (3.4-5.1); Sodium 140 mmol/L (137-145)
[2025-04-26 10:22] LABS: NT-proBNP (BNP-Adult 18+) 271 pg/mL (<125)
== END ==
PROVIDERS: PCP Family Medicine; Referring Provider Family Medicine; Visit Provider Family Medicine
DX: I48.91 Unspecified atrial fibrillation (principal); I48.92 Unspecified atrial flutter; E66.01 Morbid (severe) obesity due to excess calories; I50.20 Unspecified systolic (congestive) heart failure; I10 Essential (primary) hypertension
CPT/HCPCS: 36415; 80048; 83880

== ENCOUNTER → 2025-05-10 10:49 | Outpatient (CLI) | payer MEDICARE, SELFPAY ==
[2020-08-02 10:06] VITALS: BMI 47.0
[2025-05-10 12:55] LABS: Blood Urea Nitrogen 15 mg/dL (9-20); Calcium 9.2 mg/dL (8.4-10.2); Carbon Dioxide 28 mmol/L (22-32); Chloride 105 mmol/L (98-107); Estimated Glomerular Filt Rate > 60 mL/min (>60); Glucose 102 mg/dL (70-99); HEMOLYSIS < 15 (0-50); Potassium 3.8 mmol/L (3.4-5.1); Sodium 142 mmol/L (137-145)
== END ==
PROVIDERS: PCP Family Medicine; Referring Provider Family Medicine; Visit Provider Family Medicine
DX: I50.20 Unspecified systolic (congestive) heart failure (principal); I48.91 Unspecified atrial fibrillation
CPT/HCPCS: 36415; 80048

== ENCOUNTER → 2025-06-13 07:51 | Outpatient (CLI) | payer MEDICARE, SELFPAY ==
[2020-08-02 10:06] VITALS: BMI 47.0
--- NOTE | 2025-06-13 07:52 | DI.ECHO.S_ITS ---
[facility] : : [address] : : [place] : : [id number] : : Phone: [phone] Echocardiogram Report + + :Name: STEVEN SHAY Study Date: 06/13/2025 Height: 70 in : :Hospital ReadingLocation: Weight: 285 lb : : Gender: Male BSA: 2.4 m2 : :: 1955 Age: 69 yrs BP: 124/82 mmHg: :Reason For Study: CHF : :Ordering Physician: AIDEN, : :JOSE Performed By: Darron Solano : :Referring: JOSE WOLFE : + + Interpretation Summary 1) Normal left ventricular size with low normal systolic function (EF 50-55%). 2) MIldly to moderately enlarged right ventricle with low normal function. 3) No significant valvular abnormalities. 4) Compared to the echo done 01/11/2021, no significant change. Procedure: A two-dimensional transthoracic echocardiogram with color flow and Doppler was performed. The study quality was technically adequate. Comparison is made with the echocardiogram of 01/11/2021. The patient was in normal sinus rhythm during the exam. Left Ventricle: The left ventricle is normal in size. There is mild concentric left ventricular hypertrophy. There is no ventricular septal defect visualized. The ejection fraction is estimated to be 50-55%. There are no focal wall motion abnormalities. Right Ventricle: The right ventricle is mild to moderately dilated. Right ventricular systolic function is at the lower limits of normal. Atria: The left atrial size is normal. Right atrial size is normal. There is no Doppler evidence for an interatrial shunt. Mitral Valve: There is mild mitral annular calcification. There is trace mitral regurgitation. Aortic Valve: The aortic valve is not well visualized. There is no aortic valve stenosis. No aortic regurgitation is present. Tricuspid Valve: The tricuspid valve leaflets are thin and pliable. No tricuspid regurgitation. Pulmonic Valve: The pulmonic valve is not well visualized. Great Vessels: The aortic root is borderline dilated. The ascending aorta is at the upper limits of normal in size. The pulmonary artery is not well visualized, but is probably normal size. The inferior vena cava was not well visualized. Pericardium/ Pleura There is no pericardial effusion. MMode/2D Measurements & Calculations LVIDd: 4.2 cm LVOT diam: 2.2 cm LVIDs: 3.0 cm Ao root diam: 3.9 cm FS: 29.1 % asc Aorta Diam: 3.9 cm EPSS: 0.86 cm IVSd: 1.2 cm LVPWd: 1.3 cm LV faith. diameter/BSA (cm/m^2): 1.7 LV sys. diameter/BSA (cm/m^2): 1.2 LA A2 area: 23.0 cm2 RA long axis: 4.3 cm LA A4 area: 24.0 cm2 RA area: 15.8 cm2 LA length (vol): 7.2 cm RA vol: 49.6 ml LA vol: 65.4 ml RA : 20.4 ml/m2 LA vol index: 27.0 ml/m2 IVC diam: 1.7 cm RVD1 (basal): 4.7 cm RVD2 (mid): 3.5 cm TAPSE: 2.3 cm Doppler Measurements & Calculations Ao V2 max: 109.6 cm/sec LVOT Max Ananth: 103.4 cm/sec Ao V2 mean: 75.7 cm/sec LV V1 max P.3 mmHg Ao max P.8 mmHg LV V1 VTI: 18.9 cm Ao mean P.5 mmHg ADELINA(I,D): 3.8 cm2 Ao V2 VTI: 19.2 cm ADELINA(V,D): 3.7 cm2 sev ratio: 0.98 ADELINA indexed to BSA (cm^2/m^2): 1.6 MV E max ananth: 80.8 cm/sec SV(LVOT): 73.4 ml MV A max ananth: 20.0 cm/sec MV E/A: 4.0 Med Peak E' Ananth: 6.8 cm/sec E/E' med: 11.8 Lat Peak E' Ananth: 7.2 cm/sec E/E' lat: 11.2 E/e' average: 11.5 MV dec time: 0.23 sec Reading Physician:03:22 PM
== END ==
LOC: ECHO 07:51
PROVIDERS: PCP Family Medicine; Referring Provider Family Medicine; Visit Provider Family Medicine
DX: I34.81 Nonrheumatic mitral (valve) annulus calcification (principal); I11.0 Hypertensive heart disease with heart failure; I50.20 Unspecified systolic (congestive) heart failure; E66.01 Morbid (severe) obesity due to excess calories; I48.91 Unspecified atrial fibrillation
CPT/HCPCS: 93306

== ENCOUNTER → 2025-07-01 09:46 | Outpatient (CLI) | payer MEDICARE, SELFPAY ==
[2020-08-02 10:06] VITALS: BMI 47.0
[2025-07-01 12:06] LABS: Blood Urea Nitrogen 12 mg/dL (9-20); Calcium 9.5 mg/dL (8.4-10.2); Carbon Dioxide 27 mmol/L (22-32); Chloride 103 mmol/L (98-107); Estimated Glomerular Filt Rate > 60 mL/min (>60); Glucose 113 mg/dL (70-99); HEMOLYSIS < 15 (0-50); Potassium 4.2 mmol/L (3.4-5.1); Sodium 140 mmol/L (137-145)
[2025-07-01 12:09] LABS: Hemoglobin A1C% w Est Avg Glu 5.9 % (4.0-6.0)
== END ==
LOC: LAB 09:47
PROVIDERS: PCP Family Medicine; Referring Provider Family Medicine; Visit Provider Family Medicine
DX: R73.01 Impaired fasting glucose (principal); I48.91 Unspecified atrial fibrillation; I50.20 Unspecified systolic (congestive) heart failure
CPT/HCPCS: 36415; 80048; 83036

== ENCOUNTER → 2025-09-02 16:37 | Outpatient (CLI) | payer MEDICARE, SELFPAY ==
[2020-08-02 10:06] VITALS: BMI 47.0
--- NOTE | 2025-09-02 16:42 | DI.RAD.S_ITS ---
PROCEDURE: XR TIBIA FIBULA LT 2V INDICATIONS: Left lower leg pain TECHNIQUE: 2 views of the tibia and fibula were acquired. COMPARISON: None. FINDINGS: No acute fracture or dislocation. No bone erosion. Partially imaged knee arthroplasty. Soft tissue swelling diffusely with skin contour abnormality along the lateral mid leg. No radiopaque foreign body or visible soft tissue gas. IMPRESSION: Soft tissue swelling. Dictated by: Joseph Becker M.D. on 09/02/2025 at 17:30 Approved by: Joseph Becker M.D. on 09/02/2025 at 17:32
== END ==
PROVIDERS: PCP Family Medicine; Referring Provider Registered Nurse; Visit Provider Registered Nurse
DX: M79.662 Pain in left lower leg (principal); M79.89 Other specified soft tissue disorders; Z96.652 Presence of left artificial knee joint
CPT/HCPCS: 73590

== ENCOUNTER 2025-09-04 08:33 | Emergency (ER) | payer MEDICARE, SELFPAY ==
[2020-08-02 10:06] VITALS: BMI 47.0
[2025-09-04] VITALS (13 sets, daily range): BP systolic 106–186; BP diastolic 61–93; PULSE 93–128; RESP 14–25; TEMP 36.9; O2SAT 92–96; BMI 42.0
--- NOTE | 2025-09-04 09:05 | DI.RAD.S_ITS ---
PROCEDURE: XR CHEST 1V INDICATIONS: sepsis TECHNIQUE: One view of the chest was acquired. COMPARISON: [facility], CR, XR CHEST 1V, 09/10/2022, 13:05. [facility], CR, XR CHEST 1V, 12/08/2019, 16:19. FINDINGS: Surgical changes and devices: None. Lungs and pleura: Lungs are clear. No pleural effusions or pneumothorax. Mediastinum: Mediastinal contours appear normal. Heart size is enlarged, stable. Bones and chest wall: No suspicious bony lesions. Overlying soft tissues appear unremarkable. IMPRESSION: No acute cardiopulmonary process. Dictated by: Gianni Strickland M.D. on 09/04/2025 at 9:45 Approved by: Gianni Strickland M.D. on 09/04/2025 at 9:46
--- NOTE | 2025-09-04 09:08 | ED.LOWEXIN ---
HPI - Extremity Injury (Lower) General Chief Complaint: Extremity Injury, Lower Stated Complaint: Fall +7days, LT lower leg swollen/brused Time Seen by Provider: 09/04/25 08:58 Source: patient Mode of arrival: Wheelchair History of Present Illness HPI Narrative: This is a 69-year-old white male who tripped and fell a week ago while in [place] injuring his left leg. Patient went to an ER there where he said they did not do anything for him over the course of the past week he has no swelling in the left leg as well as discoloration as well as forming of blisters over the left lui. Patient had an outpatient x-ray of the left tib-fib done yesterday as an outpatient results are unknown. Patient denies any fevers chills nausea vomiting chest pain or shortness of breath. Patient is on Xarelto. Related Data Home Medications ?Medication ?Instructions ?Recorded ?Confirmed acetaminophen 325 mg capsule 325 mg PO BID 12/08/19 09/02/25 (Tylenol) vitamin B complex (B 1 tab PO DAILY 12/08/19 09/02/25 Complex-Vitamin B12 tablet) cetirizine 10 mg capsule (Zyrtec) 10 mg PO DAILY PRN 04/26/25 09/02/25 Previous Rx's ?Medication ?Instructions ?Recorded valacyclovir 1 gram tablet 2,000 mg (2 x 1 gram) PO BID PRN 09/03/22 herpes outbreak #4 tabs losartan 50 mg tablet 50 mg PO DAILY #90 tabs 12/27/24 metoprolol succinate 100 mg 100 mg PO DAILY #90 tabs 12/27/24 tablet,extended release 24 hr rivaroxaban 20 mg tablet 20 mg PO DAILY #90 tabs 12/27/24 spironolactone 25 mg tablet 25 mg PO DAILY #90 tabs 12/27/24 tirzepatide 10 mg/0.5 mL See Rx Instructions .Route 05/03/25 subcutaneous pen injector .COMPLEX #10 mL furosemide 20 mg tablet (Lasix) 40 mg (2 x 20 mg) PO DAILY #60 tabs 05/10/25 atorvastatin 40 mg tablet (Lipitor) 40 mg PO BEDTIME cholesterol #100 07/01/25 tabs cephalexin 500 mg capsule 1,000 mg (2 x 500 mg) PO BID 12/05/25 Cellulitis 10 days #40 caps sulfamethoxazole 800 1 tab PO BID #20 tabs 09/04/25 mg-trimethoprim 160 mg tablet (Bactrim DS) Allergies Allergy/AdvReac Type Severity Reaction Status Date / Time amiodarone Allergy Severe rash Verified 09/04/25 08:42 Review of Systems Review of Systems Narrative: GENERAL: Denies chills, fatigue, malaise, fever, sweats. HEENT: Denies sinus pain, ear pain, sore throat, difficulty swallowing, dizziness. RESPIRATORY: Denies dyspnea, cough, wheezing, hemoptysis, sputum. CARDIOVASCULAR: Denies chest pain, palpitations, orthopnea, edema, GASTROINTESTINAL: Denies nausea, vomiting, abdominal pain, diarrhea, constipation, melena. : Denies dysuria, frequency, incontinence, hematuria, urinary retention. MUSCULOSKELETAL: denies weakness, joint pain, or bony pain SKIN: See HPI NEUROLOGIC: Denies weakness, headache, numbness, change in speech, confusion, seizures, incoordination. PSYCHIATRIC: No concerning psychosocial issues. 12 point review of systems is negative except for those stated above Patient History Medical History Venous insufficiency of both lower extremities Encounter for subsequent annual wellness visit (AWV) in Medicare patient Morbid obesity due to excess calories IFG (impaired fasting glucose) Diet-controlled type 2 diabetes mellitus TDOD on CPAP History of cardioversion (04/2020) Essential hypertension Anasarca Cellulitis Vitamin D deficiency Herpes simplex with unspecified complication (11/23/04) Herpes BPH (benign prostatic hyperplasia) GERD (gastroesophageal reflux disease) Obesity with serious comorbidity (12/09/17) Surgical History History of colonoscopy Family History Mother Heart disease Cancer Stroke Father Stroke Social History marital status: unmarried,single household members: none lives independently: Yes caregiver/support person: No Smoking Status: Former smoker alcohol intake: current substance use type: does not use Smoking Status: Former smoker alcohol intake frequency: 0-2 drinks per day Exam Narrative Exam Narrative: GENERAL:69 year old patient appears stated age. Well-developed patient, in mild distress. HEAD: Atraumatic. Normocephalic. EYES: Pupils equal round and reactive. Extraocular motions intact. No scleral icterus. No injection or drainage. ENT: Nose without bleeding, purulent drainage. Throat without erythema, tonsillar hypertrophy or exudate. Airway patent. NECK: Trachea midline. Non tender CARDIOVASCULAR: Irregularly irregular without murmurs, gallops, or rubs. RESPIRATORY: Clear to auscultation. Breath sounds equal bilaterally. No wheezes, rales, or rhonchi. GASTROINTESTINAL: Abdomen soft, non-tender, nondistended. EXTREMITIES: Examination of the left leg revealed some large vesicle over the anterior surface of the tibia. There is 2+ edema in the left lower extremity also discoloration and erythema the erythema blanches with pressure. BACK: Nontender without deformity or crepitance. No flank tenderness. NEURO: AOx3. SKIN: No rash or erythema of visible areas Initial Vital Signs Initial Vital Signs: Vital Signs Temperature 98.5 F 09/04/25 08:41 Pulse Rate 120 H 09/04/25 08:41 Respiratory Rate 20 09/04/25 08:41 Blood Pressure 186/86 H 09/04/25 08:41 Pulse Oximetry 96 09/04/25 08:41 Oxygen Delivery Method Room Air 09/04/25 08:41 Course Orders Ordered: ED Orders 09/04/25 09:05 XR chest 1V Stat Urinalysis and Microscopic Stat EKG-12 Lead Stat 09/04/25 09:23 Complete Blood Count AUTO DIFF Stat Comprehensive Metabolic Panel Stat D Dimer Stat Lactate (Lactic Acid) Stat PTT Partial Thromboplastin Walter Stat Procalcitonin Stat Prothrombin Time INR Stat Troponin & CK Cardiac Panel Stat 09/04/25 09:26 Blood Culture Stat 09/04/25 09:54 periph venous low extrem lt Stat Lactated Ringer's (Lactated Ringers) 1,000 mls @ 999 mls/hr IV CONT TAWANNA Last Admin: 09/04/25 10:20 Dose: 999 mls/hr Documented By: Discontinued Medications Cefepime HCl 2 gm/ Sodium (Chloride) 100 mls @ 200 mls/hr IV STAT ONE Stop: 09/04/25 09:06 Last Infusion: 09/04/25 10:19 Dose: Infused Documented By: Admin: 09/04/25 09:32 Dose: 200 mls/hr Documented By: Metoprolol Tartrate (Metoprolol Tartrate 5 Mg/5 Ml Inj) 5 mg IV NOW ONE Stop: 09/04/25 09:20 Last Admin: 09/04/25 09:32 Dose: 5 mg Documented By: Metoprolol Tartrate (Metoprolol Tartrate 5 Mg/5 Ml Inj) 5 mg IV NOW ONE Stop: 09/04/25 10:03 Last Admin: 09/04/25 10:19 Dose: 5 mg Documented By: Vital Signs Vital signs: Vital Signs - 8 hr 09/04/25 08:41 09/04/25 09:00 09/04/25 09:30 Temperature 98.5 F Pulse Rate 120 H 128 H 118 H Respiratory Rate 20 22 16 Blood Pressure 186/86 H Pulse Oximetry 96 93 Oxygen Delivery Method Room Air 09/04/25 09:32 09/04/25 09:32 09/04/25 10:00 Temperature Pulse Rate 115 H Respiratory Rate 18 Blood Pressure 125/73 119/73 Pulse Oximetry 93 Oxygen Delivery Method 09/04/25 10:00 09/04/25 10:29 09/04/25 10:30 Temperature Pulse Rate 102 H 93 H Respiratory Rate 20 19 Blood Pressure 114/62 Pulse Oximetry 93 93 Oxygen Delivery Method 09/04/25 10:30 09/04/25 11:00 09/04/25 11:00 Temperature Pulse Rate 96 H 94 H Respiratory Rate 19 14 Blood Pressure 106/61 Pulse Oximetry 93 93 Oxygen Delivery Method 09/04/25 11:30 09/04/25 11:30 09/04/25 12:00 Temperature Pulse Rate 94 H Respiratory Rate 20 Blood Pressure 121/85 133/93 H Pulse Oximetry 92 Oxygen Delivery Method 09/04/25 12:00 Temperature Pulse Rate 100 H Respiratory Rate 25 H Blood Pressure Pulse Oximetry 93 Oxygen Delivery Method MDM - Extremity Injury (Lower) Lab Data 09/04/25 09:23 09/04/25 09:23 Labs: Lab Results 09/04/25 Range/Units 09:23 WBC 8.5 (4.5-11.0) X10^3/uL RBC 3.43 L (4.5-5.9) X10^6/uL Hgb 11.9 L (13.5-17.5) g/dL Hct 34.3 L (41-53) % MCV 99.8 (80-100) fL MCH 34.6 H (26-34) PG MCHC 34.6 (30-36) % RDW 13.6 (11.6-14.8) % Plt Count 218 (150-400) X10^3/uL Neut % (Auto) 70.6 (50-75) % Lymph % (Auto) 13.5 L (25-40) % [place] % (Auto) 15.0 H (3-14) % Eos % (Auto) 0.3 L (2-4) % Baso % (Auto) 0.6 (0-2) % Neut # (Auto) 6000 (3659-5865) /uL Lymph # (Auto) 1100 (4321-1428) /uL [place] # (Auto) 1300 H (0-900) /uL Eos # (Auto) 0 (0-450) /uL Baso # (Auto) 0 (0-100) /uL PT 19.4 H (9.4-12.5) SECONDS INR 1.7 H (0.9-1.3) APTT 36 (25.1-36.5) SECONDS D-Dimer 504 H (<500) ng/ml Sodium 136 L (137-145) mmol/L Potassium 3.9 (3.4-5.1) mmol/L Chloride 104 (98-107) mmol/L Carbon Dioxide 22 (22-32) mmol/L BUN 17 (9-20) mg/dL Creatinine 1.00 (0.66-1.25) mg/dL Estimated GFR > 60 (>60) mL/min BUN/Creatinine Ratio 17.0 (6-22) Glucose 151 H (70-99) mg/dL Lactate 1.1 (0.7-2.1) mmol/L Calcium 9.1 (8.4-10.2) mg/dL Total Bilirubin 3.5 H (0.2-1.3) mg/dL AST 21 (17-59) IU/L ALT 21 (<50) IU/L Alkaline Phosphatase 65 (38-126) U/L Total Creatine Kinase 68 (55-170) U/L Troponin I < 0.012 (0.01-0.034) ng/mL Total Protein 7.7 (6.3-8.2) g/dL Albumin 4.2 (3.5-5.0) g/dL Globulin 3.5 (1.7-4.1) g/dL Albumin/Globulin Ratio 1.2 (1.0-2.8) Procalcitonin 0.141 (<0.5) ng/mL MDM Narrative Medical decision making narrative: The patient had an outpatient x-ray of the left tib-fib which is remarkable for soft tissue swelling only patient had a venous Doppler to the left lower extremity remarkable for venous stasis and 2 large hematomas. Patient had a CBC within normal limits her chemistry remarkable for glucose of 151 procalcitonin negative D-dimer was positive lactic acid was normal INR was 1.7 troponin was negative chest x-ray read by the radiologist as negative EKG revealed atrial fibrillation at 124 beats per minute there is normal axis right bundle branch block nonspecific STT wave changes. At this point from a physical appears that looks like the patient has a cellulitis but there is no fever no white count and normal lactic acid. There is no evidence of DVT but there is evidence of venous stasis at this point I feel comfortable sending the patient home with p.o. antibiotics and outpatient follow-up. Patient just recently started Keflex I will add Bactrim DS and he will follow up with doctor next 1-2 days. Differential diagnosis is venous stasis versus cellulitis Discharge Plan Departure Patient Disposition: Home Clinical Impression: Cellulitis Instructions: DI for Cellulitis -- Adult Prescriptions: New sulfamethoxazole-trimethoprim [Bactrim DS] 800-160 mg tablet 1 tab PO BID Qty: 20 0RF No Action cephalexin 500 mg capsule 1,000 mg PO BID 10 Days Qty: 40 0RF valacyclovir 1 gram tablet 2,000 mg PO BID PRN (Reason: herpes outbreak) Qty: 4 5RF Rx Instructions: Two tablets every 12 hours for 2 days. Begin at first sign of outbreak. tirzepatide 10 mg/0.5 mL pen injector See Rx Instructions .Route .COMPLEX Qty: 10 1RF Rx Instructions: (Titration)10mg w/ cyanocabalamin 0.5mg/ml ;Week 1-4 inject 2.5mg SQ weekly; Week 5-8 inject 5mg SQ weekly; week 8 and beyond inject 7.5mg SQ weekly; dx Obesity, impaired fasting glucose, & risk of low B12 complications due to dietary restrictions rivaroxaban 20 mg tablet 20 mg PO DAILY Qty: 90 3RF losartan 50 mg tablet 50 mg PO DAILY Qty: 90 3RF metoprolol succinate 100 mg tablet extended release 24 hr 100 mg PO DAILY Qty: 90 3RF spironolactone 25 mg tablet 25 mg PO DAILY Qty: 90 3RF furosemide [Lasix] 20 mg tablet 40 mg PO DAILY Qty: 60 5RF Rx Instructions: for edema atorvastatin [Lipitor] 40 mg tablet 40 mg PO BEDTIME Qty: 100 3RF vitamin B complex [B Complex-Vitamin B12] Tablet 1 tab PO DAILY acetaminophen [Tylenol] 325 mg Capsule 325 mg PO BID Zyrtec 10 mg capsule 10 mg PO DAILY PRN Referrals: Jose Branham DO [Primary Care Provider, Family Practice] Stand Alone Forms: Patient Portal/API
--- NOTE | 2025-09-04 09:09 | EKG_ITS ---
[id number], [place] [address] Test Date: 2025-09-04 Pat Name: Theodore Kirkland Department: Room: Gender: Male Blindstitch Lapel Padder: BAYLEE : 1955 Requested By: Order Number: [id number] Reading MD: Osvaldo Moreno MD Measurements Intervals [place] Rate: 124 P: MT: QRS: 4 QRSD: 156 T: 3 QT: 362 QTc: 520 Interpretive Statements Atrial fibrillation with rapid ventricular response Right bundle branch block (old) Possible Inferior infarct , age undetermined Electronically Signed On 09-04-2025 15:38:51 PST by Osvaldo Moreno MD
[2025-09-04] MEDS: METOPROLOL TARTRATE 5 MG/5 ML INJ IV ×2 (09:32→10:19)
[2025-09-04] MEDS: CEFEPIME 2 GM in SODIUM CHLORIDE 0.9% 100 ML IV (09:32)
[2025-09-04 09:37] LABS: Add Manual Diff / Slide Review NO; Hematocrit 34.3 % (41-53); Hemoglobin 11.9 g/dL (13.5-17.5); Lymphocytes Absolute Auto 1100 /uL (1100-4500); Mean Corpuscular HGB Conc 34.6 % (30-36); Mean Corpuscular Hemoglobin 34.6 PG (26-34); Mean Corpuscular Volume 99.8 fL (80-100); Platelet Count 218 X10^3/uL (150-400)
[2025-09-04 09:44] LABS: INR 1.7 (0.9-1.3); Prothrombin Time 19.4 SECONDS (9.4-12.5)
[2025-09-04 09:47] LABS: PTT Partial Thromboplastin Tim 36 SECONDS (25.1-36.5)
[2025-09-04 09:48] LABS: Lactate (Lactic Acid) 1.1 mmol/L (0.7-2.1)
[2025-09-04 09:50] LABS: Alanine Aminotransferase 21 IU/L (<50); Albumin 4.2 g/dL (3.5-5.0); Albumin Globulin Ratio 1.2 (1.0-2.8); Alkaline Phosphatase 65 U/L (38-126); Blood Urea Nitrogen 17 mg/dL (9-20); Calcium 9.1 mg/dL (8.4-10.2); Carbon Dioxide 22 mmol/L (22-32); Chloride 104 mmol/L (98-107); Creatine Kinase 68 U/L (55-170); Estimated Glomerular Filt Rate > 60 mL/min (>60); Globulin 3.5 g/dL (1.7-4.1); Glucose 151 mg/dL (70-99); HEMOLYSIS < 15 (0-50); Potassium 3.9 mmol/L (3.4-5.1); Sodium 136 mmol/L (137-145); Total Protein 7.7 g/dL (6.3-8.2)
--- NOTE | 2025-09-04 09:54 | DI.US.S_ITS ---
PROCEDURE: US PERIPH VENOUS LOW EXTREM LT INDICATIONS: SWELLING TECHNIQUE: Real-time imaging, as well as color and pulse Doppler interrogation, were performed of the lower extremity deep veins from the inguinal ligament to the popliteal fossa, with documentation of the visualized calf veins. COMPARISON: None. FINDINGS: The common femoral, femoral, popliteal, and the visualized calf veins are normally compressible, and free of intraluminal thrombus. Color and pulse Doppler demonstrate normal phasic intraluminal flow. There is normal augmentation response to distal compression maneuver. Peroneal veins are not well seen. Venous stasis is noted within the greater saphenous vein and common femoral veins. Two large hematomas are seen, the more superficial measures 11.8 x 4.9 x 0.7 cm and the deeper hematoma measures 22.9 x 10.2 x 3.2 cm. IMPRESSION: No findings of lower extremity deep venous thrombosis. Large hematomas are seen, as described above. Dictated by: Gianni Strickland M.D. on 09/04/2025 at 11:36 Approved by: Gianni Strickland M.D. on 09/04/2025 at 11:37
[2025-09-04 10:01] LABS: Troponin I < 0.012 ng/mL (0.01-0.034)
[2025-09-04 10:06] LABS: Procalcitonin 0.141 ng/mL (<0.5)
[2025-09-04] MEDS: LACTATED RINGERS 1,000 ML 999 ML IV (10:20)
== END 2025-09-04 13:24 | disposition home or self-care (01) ==
PROVIDERS: Emergency Provider Emergency Medicine; PCP Family Medicine
DX: L03.116 Cellulitis of left lower limb (principal); W01.0XXA Fall on same level from slipping, tripping and stumbling without subsequent striking against object, initial encounter
CPT/HCPCS: 36415; 71045; 80053; 82550; 83605; 84145; 84484; 85025; 85379; 85610; 85730; 87040; 93005; 93010; 93971; 96365; 99284; J0692; J7050; J7120

== ENCOUNTER → 2025-09-14 10:24 | Outpatient (CLI) | payer MEDICARE, SELFPAY ==
[2020-08-02 10:06] VITALS: BMI 47.0
== END ==
LOC: WC 10:35
PROVIDERS: Family Provider Family Medicine; PCP Family Medicine; Referring Provider Family Medicine; Visit Provider Surgery
DX: L89.890 Pressure ulcer of other site, unstageable (principal); L98.8 Other specified disorders of the skin and subcutaneous tissue; E11.628 Type 2 diabetes mellitus with other skin complications; Z79.01 Long term (current) use of anticoagulants
CPT/HCPCS: 97602; 99203

== ENCOUNTER 2025-09-16 11:39 | Day surgery (SDC) | payer MEDICARE, SELFPAY ==
[2025-09-14 13:47] VITALS: BMI 47.0
[2025-09-16] VITALS (7 sets, daily range): BP systolic 134–162; BP diastolic 80–94; PULSE 84–108; RESP 15–24; TEMP 36.2–36.7; O2SAT 93–94; BMI 40.1
--- NOTE | 2025-09-16 12:15 | PM.PREOP ---
Pre-operative Note COVID-19 COVID-19 status: Not tested Interval Note History & Physical reviewed/Exam performed by Physician: Yes Changes to H&P: No ASA Class (for procedural sedation): III
[2025-09-16] MEDS: LACTATED RINGERS 1,000 ML 42 ML IV (12:45)
[2025-09-16] MEDS: ACETAMINOPHEN 325 MG TABLET 975 MG PO (12:47)
--- NOTE | 2025-09-16 13:26 | SUR.OPER ---
Supine on padded OR bed, head on pillow, arms secured on padded arm boards at <90 degrees abduction, legs uncrossed, safety belt at thigh, tape over blanket over lower legs. final positioning done by provider
--- NOTE | 2025-09-16 13:50 | PM.OP.1 ---
Operative Date/Time/Diagnoses Date of procedure: 09/16/25 Time of procedure: 13:50 Pre-op diagnosis: Left leg hematoma Post-op diagnosis: same Procedure & Clinicians Procedure: Debridement of left leg hematoma Same procedure(s) as scheduled: Yes Surgeon: Douglas Miller Assisted?: No Anesthesia Type: General Operative Notes Findings: Roughly 1 L of gelatinous clot extracted from hematoma which measured roughly 25 cm x 15 cm x 8 cm Applied: none Estimated Blood Loss (mL): 5 Procedure in detail: The patient is a 70-year-old man who was [facility] with a large retained hematoma of the left leg. He was consented for debridment in the operating room. The patient was consented in the preoperative area in the left leg was marked. The patient was then brought to the operating placed on the table in the supine position and general anesthesia was induced. The left leg was prepped circumferentially and draped in the usual fashion. A time-out was performed. A 15 blade scalpel was used to excise an oval of skin that included the two patches of black necrotic epidermis. This section of skin measured roughly 12 cm x 10 cm. It was discarded. This left about 8 cm of undermining around the incision primarily in the lateral inferior direction and the superior medial direction. We then evacuated roughly 1 L of gelatinous blood clot. We then irrigated the wound with saline. Some devitalized tissue was debrided from the surface of the muscle fascia. We then loosely packed the wound with a single roll of Kerlix gauze. ABDs were applied followed by snug Kerlix wrap followed by a snug Miguel wrap. Complications: none Post-operative Condition: stable Disposition: PACU
== END 2025-09-16 14:35 | disposition home or self-care (01) ==
PROVIDERS: Family Provider Family Medicine; PCP Family Medicine; Referring Provider Family Medicine; Visit Provider Surgery
PROC: (CPT 11043; principal; 2025-09-16 13:45)
DX: S70.12XA Contusion of left thigh, initial encounter (principal); W10.9XXA Fall (on) (from) unspecified stairs and steps, initial encounter; Z87.891 Personal history of nicotine dependence
CPT/HCPCS: 11043; 11046; J1100; J1885; J2405; J2704; J3010; J7120

== ENCOUNTER → 2025-09-19 08:55 | Outpatient (CLI) | payer MEDICARE, SELFPAY ==
[2025-09-14 13:47] VITALS: BMI 47.0
== END ==
LOC: WC 08:56
PROVIDERS: Family Provider Family Medicine; PCP Family Medicine; Referring Provider Family Medicine; Visit Provider Surgery
DX: L89.892 Pressure ulcer of other site, stage 2 (principal); L53.8 Other specified erythematous conditions; R60.0 Localized edema
CPT/HCPCS: 11042; 99213

== ENCOUNTER → 2025-09-20 09:43 | Outpatient (CLI) | payer MEDICARE, SELFPAY ==
[2025-09-14 13:47] VITALS: BMI 47.0
== END ==
LOC: WC 09:44
PROVIDERS: Family Provider Family Medicine; PCP Family Medicine; Referring Provider Family Medicine; Visit Provider Surgery
DX: L89.894 Pressure ulcer of other site, stage 4 (principal); L53.8 Other specified erythematous conditions; L98.8 Other specified disorders of the skin and subcutaneous tissue
CPT/HCPCS: 99212

== ENCOUNTER → 2025-09-26 11:44 | Outpatient (CLI) | payer MEDICARE, SELFPAY ==
[2025-09-14 13:47] VITALS: BMI 47.0
== END ==
LOC: WC 11:44
PROVIDERS: Family Provider Family Medicine; PCP Family Medicine; Referring Provider Family Medicine; Visit Provider Surgery
DX: S80.12XS Contusion of left lower leg, sequela (principal); S81.802A Unspecified open wound, left lower leg, initial encounter; T81.89XA Other complications of procedures, not elsewhere classified, initial encounter; L98.8 Other specified disorders of the skin and subcutaneous tissue
CPT/HCPCS: 11042; 11045; 97606

== ENCOUNTER → 2025-09-28 09:57 | Outpatient (CLI) | payer MEDICARE, SELFPAY ==
[2025-09-14 13:47] VITALS: BMI 47.0
== END ==
LOC: WC 10:00
PROVIDERS: Family Provider Family Medicine; PCP Family Medicine; Referring Provider Family Medicine; Visit Provider Surgery
DX: T81.89XA Other complications of procedures, not elsewhere classified, initial encounter (principal); S81.802A Unspecified open wound, left lower leg, initial encounter; L98.8 Other specified disorders of the skin and subcutaneous tissue
CPT/HCPCS: 97606